=== PATIENT | female | born 1965 | race Caucasian/White ===

== ENCOUNTER 2019-11-03 16:06 | Outpatient (CLI) | payer BC, SELFPAY ==
--- NOTE | ~2019-11-03 | MM_ITS ---
EXAMINATION: MM screening [facility] BI w tarsha HISTORY: Screening mammogram TECHNIQUE: Craniocaudal and mediolateral oblique 3-D tomosynthesis images were obtained and synthetic 2-D images were generated. CAD analysis was submitted and interpreted. COMPARISON: 09/29/18, 09/25/17, 09/10/16 BREAST PARENCHYMAL COMPOSITION: The breasts are almost entirely fatty. FINDINGS: Scattered benign-appearing calcifications are present. Stable bilateral breast masses are c onsidered benign given the lack of interval change. There is no evidence of suspicious mass, calcific ation, or architectural distortion to suggest malignancy in either breast. There has been no suspicio us interval change. IMPRESSION: 1. No mammographic evidence of malignancy. 2. Recommend routine screening mammography in one year. BI-RADS Category 2: Benign finding(s). Reviewed, dictated and finalized at location A. CRAFTER
== END 2019-11-03 16:07 | disposition home or self-care (01) ==
LOC: ANHIMG 16:09
PROVIDERS: PCP Family Medicine; Visit Provider Family Medicine
DX: Z12.31 Encounter for screening mammogram for malignant neoplasm of breast (principal)
CPT/HCPCS: 77063; 77067

== ENCOUNTER 2020-02-23 14:45 | Outpatient (RCR) | payer BC, SELFPAY ==
--- NOTE | 2020-02-23 15:58 | PTOPEVAL ---
Thank you for referring Faye Lennon to [facility]. Please review, sign, date and return this plan of care DAYO. I agree with and certify that the following plan of care is medically necessary. Referring Physician Date Admitting Provider: Attending Provider: Ramana Lopes, MD Referring Provider: *PT Outpatient Evaluation Start: 02/23/20 14:56 Freq: Status: Active Protocol: Document 02/23/20 14:57 GEOFF (Rec: 02/23/20 15:27 GEOFF [email or web address]) Therapy Assessment Status Assessment Status Assessment Status Evaluation Evaluation Information Problem Diagnosis impingement syndrome of left shoulder Onset 11/19/19 Subjective Information Pt. reports that she was Query Text:As Reported By Patient/ sewing masks recently and Family noticed increased left shoulder pain. She reports that the pain has worsened and has trouble reaching behind her back. She reports that most pain is in the front of the left shoulder. Pain will wake her at night. She reports she cannot reach behind her back w/o pain. She reports that dressing is becoming more difficult. Her goal is to decrease her left shoulder pain. Diagnostic Tests X-Rays For This Problem Yes Prior Level of Function Activity Level (Last 3 Months) Hand Dominance Right Activity of Daily Living Ability Independent Indoor/Home Mobility Independent Community Mobility Independent Stairs Ability Independent Functional Cognition (Planning, Shopping Independent , Taking Medications) Cooking Yes Cleaning Yes Laundry Yes Shopping Yes Driving Yes Pain Assessment Pain Scale Pain Scale Used Numeric (1 - 10) Self Report Pain Assessment Left Shoulder(s) Reported Pain Level 8 Pain Description Stabbing Pain Frequency Chronic Pain Aggravating Factors Exercise/Activity Other Pain Aggravating Factors reaching overhead or behind the back Pain Behaviors None Pain Relief Interventions Used By None Patient Pain Score Pain Score 8: Self Report Up
--- NOTE | 2020-02-29 13:59 | PCPTNOTE ---
Faye Lennon has completed 4 out of 12 physical therapy visits. Patient's chief complaint is pain in the left shoulder with limited range of motion. She rates her pain a 7 today. She states the past couple of days the pain has been worse and she feels as if there is swelling in the biceps along with tenderness. Active range of motion has improved in regards to flexion and interal rotation. Flexion now measures 130 degrees, Internal rotation 75 degrees, and external rotation 70 degrees. Patient continues to show weakness in all ranges. If you have any further question please give us a call. Thank you. Ada Camarena, MINERAL MIXER
--- NOTE | 2020-04-25 15:06 | PTOPEVAL ---
Thank you for referring Faye Lennon to [facility]. Please review, sign, date and return this plan of care DAYO. I agree with and certify that the following plan of care is medically necessary. Referring Physician Date Admitting Provider: Attending Provider: Ramana Lopes, MD Referring Provider: *PT Outpatient Evaluation Start: 02/23/20 14:56 Freq: Status: Active Protocol: Document 04/25/20 15:01 GEOFF (Rec: 04/25/20 15:05 [email or web address] [email or web address]) Therapy Assessment Status Assessment Status Assessment Status Progress Evaluation Information Problem Subjective Information Pt. has not attended therapy Query Text:As Reported By Patient/ due to being informed to avoid Family treatment until after her MRI . She reports MRI revealed possible slap tear, doctor suggested she return to therapy. She continues to describe lateral brachial pain and stiffness at the left shoulder. She reports her goal remains to improve strength and mobility. Pain Assessment Pain Scale Pain Scale Used Numeric (1 - 10) Self Report Pain Assessment Left Shoulder(s) Reported Pain Level 5 Pain Score Pain Score 5: Self Report Upper Extremity Range of Motion General Upper Extremity Range of Motion Gross Upper Extremity Range of Motion left shoulder flexion 112 Comments degrees left shoulder IR 58 degrees left shoulder ER 60 degrees Upper Extremity Muscle Strength Testing General Upper Extremity Strength Gross Upper Extremity Strength Comments left shoulder flexion 4-/5, left shoulder abduction 4-/5, left shoulder ER 4-/5 PT Clinical Summary Clinical Summary Protocol: PTEVCODE PT Clinical Summary Pt. returns to the clinic. Deficits still remain and recommend continued treatment with same goals in order to improve left u.e. function. PT Services Indicated Yes Rehabilitation Potential Good Potential Barriers to Goal Achievements None Support Requirements For Optimal None [place] Patient/Caregiver Informed of Benefits/ Yes Risks of Rehabilitation Patient/Caregiver Participated in Plan Yes of Care Patient/Caregiver Agreed with Problem Yes List/POC/Goals Treatment Frequency and Duration 2x/week x 8 visits PT Procedures
--- NOTE | 2020-04-26 10:43 | PCPTNOTE ---
04/26/20-pt cancelled appointment as she forgot about it. -.
--- NOTE | 2020-05-11 17:00 | PCPTNOTE ---
05/11/20 Faye has received 8 out of 12 Physical Therapy appointments. Patient's chief complaint is pain and popping in the left shoulder. She rates her pain a 4. Active range of motion of left shoulder is 135 degrees of flexion and 60 degrees of external rotation. Manual muscle test shows 4/5 for flexion, 4/5 abduction, and 4/5 external rotation Patient has shown improvement in strength and range of motion over the course of her therapy. If you have any further questions please give us a call. Thank youl. Ada Camarena
--- NOTE | 2020-05-11 17:38 | PCPTNOTE ---
Faye has received 8 out of 12 Physical Therapy appointments. Patient's chief complaint is pain and popping in the left shoulder. She rates her pain a 4. Active range of motion of left shoulder is 135 degrees of flexion and 60 degrees of external rotation. Manual muscle test shows 4/5 for flexion, 4/5 abduction, and 4/5 external rotation Patient has shown improvement in strength and range of motion over the course of her therapy. If you have any further questions please give us a call. Thank you. Ada Camarena
== END 2020-05-23 23:59 | disposition home or self-care (01) ==
LOC: CHSPT 14:45
PROVIDERS: Visit Provider Orthopaedic Surgery
DX: M75.42 Impingement syndrome of left shoulder (principal); M75.02 Adhesive capsulitis of left shoulder
CPT/HCPCS: 97014; 97110; 97140; 97161; G0283

== ENCOUNTER 2020-02-26 12:27 | Outpatient (CLI) | payer BC, SELFPAY ==
[2020-02-26 12:38] LABS: Basophils Absolute Auto 0.04 K/mm3 (0.00-0.10); Basophils Percent Auto 0.5 % (0.0-1.0); Eosinophils Absolute Auto 0.06 K/mm3 (0.02-0.50); Eosinophils Percent Auto 0.7 % (1.0-6.0); Hematocrit 36.5 % (35.0-49.0); Hemoglobin 11.9 g/dL (12.0-15.0); Immature Granulocyte Absolute 0.03 K/mm3 (0.00-0.00); Immature Granulocyte Percent A 0.3 % (0.0-0.0); Lymphocytes Absolute Auto 3.07 K/mm3 (1.10-4.50); Lymphocytes Percent Auto 35.1 % (18.0-42.0); Mean Corpuscular HGB Conc 32.6 g/dL (32.0-36.0); Mean Corpuscular Hemoglobin 28.7 pg (27.0-31.0); Mean Corpuscular Volume 88.2 fL (78.0-102.0); Mean Platelet Volume 8.9 fl (9.2-11.8); Monocytes Absolute Auto 0.71 K/mm3 (0.10-0.90); Monocytes Percent Auto 8.1 % (2.0-11.0); Neutrophils Absolute Auto 4.8 K/mm3 (1.7-7.2); Neutrophils Percent Auto 55.3 % (50.0-70.0); Platelet Count Result 306 K/mm3 (150-420); Red Blood Count 4.14 M/mm3 (4.20-5.40); Red Cell Distribution Width 17.5 % (11.6-14.4); White Blood Count 8.8 K/mm3 (4.8-10.8)
[2020-02-26 12:48] LABS: Hemoglobin A1C 6.1 % (<5.7)
[2020-02-26 14:03] LABS: Cholesterol 188 mg/dL (0-200); HDL Direct 65 mg/dL (40-60); Iron 60 ug/dL (50-170); LDL Cholesterol Calculated 95 mg/dL (<130); Percent Iron Saturation 13 % (12-57); Thyroid Stimulating Hormone 1.45 uIU/mL (0.36-3.74); Triglycerides 139 mg/dL (0-150)
== END 2020-02-26 12:28 | disposition home or self-care (01) ==
LOC: CHSLAB 12:29
PROVIDERS: PCP Family Medicine; Visit Provider Family Medicine
DX: D50.9 Iron deficiency anemia, unspecified (principal); I10 Essential (primary) hypertension; E78.2 Mixed hyperlipidemia; E03.9 Hypothyroidism, unspecified; R73.01 Impaired fasting glucose
CPT/HCPCS: 36415; 80061; 83036; 83540; 83550; 84443; 85025

== ENCOUNTER 2020-03-01 12:50 | Outpatient (CLI) | payer BC, SELFPAY ==
[2020-03-01 13:43] LABS: Blood Urea Nitrogen 13 mg/dL (7-18); Calcium 9.6 mg/dL (8.5-10.1); Carbon Dioxide 32 mmol/L (21-32); Chloride 100 mmol/L (98-108); Estimated Glomerular Filt Rate > 60; Glucose 84 mg/dL (70-99)
[2020-03-01 13:48] LABS: Anion Gap 13.3 mmol/L (7-16); Osmolality Calculated 289 mOsm/kg (285-295); Potassium 5.3 mmol/L (3.5-5.1); Sodium 140 mmol/L (136-145)
== END 2020-03-01 12:51 | disposition home or self-care (01) ==
LOC: CHSLAB 12:51
PROVIDERS: PCP Family Medicine; Visit Provider Family Medicine
DX: R73.01 Impaired fasting glucose (principal)
CPT/HCPCS: 36415; 80048

== ENCOUNTER 2020-03-07 10:19 | Outpatient (CLI) | payer BC, SELFPAY ==
[2020-03-07 11:18] LABS: Anion Gap 11.3 mmol/L (7-16); Blood Urea Nitrogen 14 mg/dL (7-18); Calcium 9.7 mg/dL (8.5-10.1); Carbon Dioxide 31 mmol/L (21-32); Chloride 102 mmol/L (98-108); Estimated Glomerular Filt Rate > 60; Glucose 87 mg/dL (70-99); Osmolality Calculated 287 mOsm/kg (285-295); Potassium 5.3 mmol/L (3.5-5.1); Sodium 139 mmol/L (136-145)
== END 2020-03-07 10:20 | disposition home or self-care (01) ==
PROVIDERS: PCP Family Medicine; Visit Provider Family Medicine
DX: E87.5 Hyperkalemia (principal)
CPT/HCPCS: 36415; 80048

== ENCOUNTER 2020-03-23 08:47 | Outpatient (CLI) | payer BC, SELFPAY ==
[2020-03-23 10:19] LABS: Anion Gap 14.8 mmol/L (7-16); Blood Urea Nitrogen 13 mg/dL (7-18); Calcium 9.4 mg/dL (8.5-10.1); Carbon Dioxide 29 mmol/L (21-32); Chloride 104 mmol/L (98-108); Estimated Glomerular Filt Rate > 60; Glucose 86 mg/dL (70-99); Osmolality Calculated 295 mOsm/kg (285-295); Potassium 4.8 mmol/L (3.5-5.1); Sodium 143 mmol/L (136-145)
== END 2020-03-23 08:48 | disposition home or self-care (01) ==
PROVIDERS: PCP Family Medicine; Visit Provider Family Medicine
DX: E87.5 Hyperkalemia (principal)
CPT/HCPCS: 36415; 80048

== ENCOUNTER 2020-08-03 09:59 | Outpatient (NON) | payer BC, SELFPAY ==
[2020-08-04 13:09] LABS: SARS-CoV-2 RNA PCR Positive
== END 2020-08-03 10:00 ==
LOC: ANHCOVIDDT 10:01
PROVIDERS: PCP Family Medicine; Visit Provider Family Medicine
DX: J02.9 Acute pharyngitis, unspecified (principal); U07.1 COVID-19
CPT/HCPCS: 87635; C9803; U0003

== ENCOUNTER 2020-11-08 17:28 | Outpatient (CLI) | payer BC, SELFPAY ==
--- NOTE | ~2020-11-08 | MM_ITS ---
EXAMINATION: MM screening isrrael BI w tarsha HISTORY: Screening mammogram TECHNIQUE: Craniocaudal and mediolateral oblique 3-D tomosynthesis images were obtained and synthetic 2-D images were generated. CAD analysis was submitted and interpreted. COMPARISON: November 03, 2019, 09/29/2018, 09/25/2017 bilateral digital screening mammogram examinatio ns BREAST PARENCHYMAL COMPOSITION: There are scattered areas of fibroglandular density. FINDINGS: Bilateral benign calcified microhematomas. There is no evidence of suspicious mass, calcifi cation, or architectural distortion to suggest malignancy in either breast. There has been no suspici ous interval change. IMPRESSION: 1. No mammographic evidence of malignancy. 2. Recommend routine screening mammography in one year. BI-RADS Category 2: Benign finding(s). Reviewed, dictated and finalized at location A. L RAIL CUTTER
== END 2020-11-08 17:29 | disposition home or self-care (01) ==
LOC: ANHIMG 17:30
PROVIDERS: PCP Family Medicine; Visit Provider Family Medicine
DX: Z12.31 Encounter for screening mammogram for malignant neoplasm of breast (principal)
CPT/HCPCS: 77063; 77067

== ENCOUNTER 2020-12-13 07:26 | Outpatient (CLI) | payer BC, SELFPAY ==
[2020-12-13 07:39] LABS: Basophils Absolute Auto 0.03 K/mm3 (0.00-0.10); Basophils Percent Auto 0.4 % (0.0-1.0); Eosinophils Absolute Auto 0.08 K/mm3 (0.02-0.50); Hematocrit 29.5 % (35.0-49.0); Hemoglobin 8.8 g/dL (12.0-15.0); Immature Granulocyte Absolute 0.03 K/mm3 (0.00-0.00); Immature Granulocyte Percent A 0.4 % (0.0-0.0); Lymphocytes Absolute Auto 1.85 K/mm3 (1.10-4.50); Lymphocytes Percent Auto 22.9 % (18.0-42.0); Mean Corpuscular HGB Conc 29.8 g/dL (32.0-36.0); Mean Corpuscular Hemoglobin 24.9 pg (27.0-31.0); Mean Corpuscular Volume 83.3 fL (78.0-102.0); Mean Platelet Volume 8.7 fl (9.2-11.8); Monocytes Absolute Auto 0.76 K/mm3 (0.10-0.90); Monocytes Percent Auto 9.4 % (2.0-11.0); Neutrophils Absolute Auto 5.3 K/mm3 (1.7-7.2); Neutrophils Percent Auto 65.9 % (50.0-70.0); Platelet Count Result 305 K/mm3 (150-420); Red Blood Count 3.54 M/mm3 (4.20-5.40); Red Cell Distribution Width 17.8 % (11.6-14.4); White Blood Count 8.1 K/mm3 (4.8-10.8)
[2020-12-13 08:20] LABS: Alanine Aminotransferase 22 U/L (14-59); Albumin Level 3.6 g/dL (3.4-5.0); Alkaline Phosphatase 71 U/L (46-116); Anion Gap 9 mmol/L (8-16); Aspartate Amino Transferase 15 U/L (15-37); Bilirubin,Total 0.3 mg/dL (0.00-1.00); Blood Urea Nitrogen 11 mg/dL (7-18); CRP < 0.5 mg/dL (0.0-0.9); Calcium 9.1 mg/dL (8.5-10.1); Carbon Dioxide 29 mmol/L (21-32); Chloride 102 mmol/L (98-108); Estimated Glomerular Filt Rate > 60; Glucose 109 mg/dL (70-99); Osmolality Calculated 290 mOsm/kg (285-295); Potassium 4.9 mmol/L (3.5-5.1); Sodium 140 mmol/L (136-145); Total Protein 7.1 g/dL (6.4-8.2)
== END 2020-12-13 07:27 | disposition home or self-care (01) ==
LOC: CHSLAB 07:29
PROVIDERS: PCP Family Medicine
DX: M06.09 Rheumatoid arthritis without rheumatoid factor, multiple sites (principal); D64.89 Other specified anemias; F11.90 Opioid use, unspecified, uncomplicated; Z79.899 Other long term (current) drug therapy
CPT/HCPCS: 36415; 80053; 85025; 86140

== ENCOUNTER 2020-12-20 07:34 | Outpatient (CLI) | payer BC, SELFPAY ==
[2020-12-20 09:15] LABS: Iron 28 ug/dL (50-170)
[2020-12-26 22:59] LABS: Hematocrit 30.1 % (35.0-45.0); MCH 24.7 pg (27.0-33.0); MCV 82.7 FL (80.0-100.0); RDW 19.6 % (11.0-15.0); Red Blood Cell Count 3.64 Mill/uL (3.80-5.10)
== END 2020-12-20 07:35 | disposition home or self-care (01) ==
LOC: CHSLAB 07:36
PROVIDERS: PCP Family Medicine; Visit Provider Internal Medicine
DX: D64.89 Other specified anemias (principal); M16.52 Unilateral post-traumatic osteoarthritis, left hip; M06.09 Rheumatoid arthritis without rheumatoid factor, multiple sites
CPT/HCPCS: 36415; 83021; 83540

== ENCOUNTER 2021-01-23 07:38 | Outpatient (CLI) | payer BC, SELFPAY ==
[2021-01-23 07:49] LABS: Basophils Absolute Auto 0.04 K/mm3 (0.00-0.10); Basophils Percent Auto 0.4 % (0.0-1.0); Eosinophils Absolute Auto 0.12 K/mm3 (0.02-0.50); Eosinophils Percent Auto 1.1 % (1.0-6.0); Hematocrit 31.4 % (35.0-49.0); Hemoglobin 9.4 g/dL (12.0-15.0); Immature Granulocyte Absolute 0.04 K/mm3 (0.00-0.00); Immature Granulocyte Percent A 0.4 % (0.0-0.0); Lymphocytes Absolute Auto 2.47 K/mm3 (1.10-4.50); Lymphocytes Percent Auto 23.5 % (18.0-42.0); Mean Corpuscular HGB Conc 29.9 g/dL (32.0-36.0); Mean Corpuscular Hemoglobin 24.6 pg (27.0-31.0); Mean Corpuscular Volume 82.2 fL (78.0-102.0); Monocytes Absolute Auto 0.84 K/mm3 (0.10-0.90); Neutrophils Percent Auto 66.6 % (50.0-70.0); Platelet Count Result 313 K/mm3 (150-420); Red Blood Count 3.82 M/mm3 (4.20-5.40); Red Cell Distribution Width 19.4 % (11.6-14.4); White Blood Count 10.5 K/mm3 (4.8-10.8)
== END 2021-01-23 07:39 | disposition home or self-care (01) ==
LOC: CHSLAB 07:41
PROVIDERS: PCP Family Medicine; Visit Provider Internal Medicine
DX: D64.89 Other specified anemias (principal); M16.52 Unilateral post-traumatic osteoarthritis, left hip; M06.09 Rheumatoid arthritis without rheumatoid factor, multiple sites
CPT/HCPCS: 36415; 85025

== ENCOUNTER 2021-03-30 00:43 | Day surgery (SDC) | payer BC, SELFPAY ==
[2021-03-30 06:38] VITALS: BP 118/73; PULSE 89; RESP 16; TEMP 35.7; O2SAT 100
[2021-03-30 06:38] LABS: Glucose Point of Care 99 mg/dl (65-105)
[2021-03-30] MEDS: LACTATED RINGERS 1,000 ML 150 ML IV CONT (06:42)
--- NOTE | 2021-03-30 07:55 | WPDANESEPPF ---
Anes - Initial Pre Proc Eval Procedure: Operation Date: 03/30/21 08:00 Proposed Procedures p Esophagogastroduodenoscopy & Colonoscopy - Tim Luna DO Date/Time: 03/30/21 07:55 Surgeon: Tim Luna DO Pre Op Diagnosis: lron def anemia, hx of colon polyps Patient Data Age: 55 Gender: F Height: 1.55 m Weight: 80.2 kg Last Vital Signs Temp 96.3 F L 03/30/21 06:38 Pulse 89 03/30/21 06:38 Resp 16 03/30/21 06:38 BP 118/73 03/30/21 06:38 Pulse Ox 100 03/30/21 06:38 Allergies Allergy/AdvReac Type Severity Reaction Status Date / Time hydroxychloroquine Allergy Unknown Other Verified 03/30/21 06:36 quinapril Allergy Unknown LIP Verified 03/30/21 06:36 SWELLING Home Medications Medication Instructions Recorded Confirmed Type carvedilol 25 mg tablet 25 mg PO BID 08/31/19 03/30/21 History folic acid 1 mg tablet 1 mg PO DAILY 08/31/19 03/30/21 History gabapentin 300 mg capsule 600 mg PO DAILY cap 08/31/19 03/30/21 History losartan 100 mg tablet 100 mg PO DAILY 08/31/19 03/30/21 History methotrexate (PF) 25 mg/0.4 mL 25 mg SUB-Q WEEKLY 08/31/19 03/30/21 History subcutaneous auto-injector tramadol 50 mg tablet 100 mg PO DAILY 08/31/19 03/30/21 History levothyroxine 75 mcg tablet 75 mcg PO DAILY #90 tablet 01/25/21 03/30/21 Rx venlafaxine 150 mg 150 mg PO DAILY #90 cap 02/02/21 03/30/21 Rx capsule,extended release 24 hr abatacept [Orencia ClickJect] 125 mg SUBCUT WEEKLY 03/23/21 03/30/21 History ascorbic acid (vitamin C) 500 mg PO DAILY 03/23/21 03/30/21 History esomeprazole magnesium 40 mg PO DAILY 03/23/21 03/30/21 History ferrous sulfate 325 mg PO DAILY 03/23/21 03/30/21 History metformin 500 mg PO BID 03/23/21 03/30/21 History Laboratory Tests 03/30/21 06:34 POC Capillary Glucose 99 mg/dl mg/dl (65-105) Patient hx anesthesia problems: none Family hx anesthesia problems: none PMFSH Past Medical History Medical History (Updated 08/04/20 @ 13:30 by Ken Best MD) Acne vulgaris Actinic keratosis Acute non-recurrent maxillary sinusitis Breast cancer screening by mammogram COVID-19 Essential (primary) hypertension Exposure to COVID-19 virus H/O urinary frequency Hyperkalemia Pharyngitis UTI (urinary tract infection) Family History Family History (Updated 12/25/18 @ 13:00 by DOCTOR UNKNOWN) Grandparent Family history of cardiovascular disease, Onset Age: 44 Carcinoma of colon, Onset Age: 84 Family history of pancreatic cancer, Onset Age: 75 Father Acute myocardial infarction, Onset Age: 48 Mother Family history of Alzheimer's disease, Onset Age: 72 Social History Social History Smoking status: Never smoker Alcohol intake: current Alcohol use details: Monthly Living arrangements: with family Spiritual care concerns: No Anes - Eval Final PreProcedure Day of Procedure 03/30/21 07:55 Patient weight: obese Heart: regular rate and rhythm Lungs: clear to auscultation Airway: Mallampati scale class II Neurological: alert and oriented Last oral intake: >/= 8 hours ASA classification: III Emergent: no Anesthetic plan: proceed Anesthesia type and monitoring: general GIVS and standard monitoring Informed Consent: The patient's anesthetic plan and its attendant risks and benefits were discussed with the patient/family/POA. Questions were solicited and answers provided to the satisfaction of the patient/family/POA.
--- NOTE | 2021-03-30 08:32 | PM.IMHP ---
H&P: HPI History of Present Illness Date/Time: 03/30/21 08:32 Chief Complaint: anemia Narrative: this is a 55-year-old woman who presents with a recent finding of anemia. She denies in a noticeable blood in her stool. She has had a colonoscopy within the past few years which she thinks her showed polyps. She does have some acid reflux for which she takes Nexium, but denies any history peptic ulcer disease. Review of Systems Review of Systems: All systems reviewed & are unremarkable except as noted in HPI and below Constitutional: Constitutional: Denies chills, Denies fever(s), Denies headache(s) and Denies weight loss Eyes: Eyes: Denies change in vision ENT: Denies dizziness, Denies headache(s), Denies neck mass and Denies throat swelling Cardiovascular: Cardiovascular: Denies chest pain, Denies lightheadedness and Denies dyspnea Respiratory: Respiratory: Denies cough, Denies dyspnea and Denies wheezing Gastrointestinal: Gastrointestinal: Denies abdominal pain, Denies change in bowel habits, Denies nausea and Denies vomiting Genitourinary: Genitourinary: Denies hematuria and Denies dysuria Musculoskeletal: Musculoskeletal: Reports as per HPI Integumentary/Breasts: Skin/Breast: Reports as per HPI Neurologic: Denies dizziness and Denies headache(s) Allergic/Immunologic: Allergic/Immunologic: Denies throat swelling and Denies wheezing PMF Past Medical History Medical History (Updated 03/30/21 @ 08:33 by Tim Luna DO) Acne vulgaris Actinic keratosis Acute non-recurrent maxillary sinusitis Breast cancer screening by mammogram COVID-19 Essential (primary) hypertension Exposure to COVID-19 virus H/O urinary frequency Hyperkalemia Pharyngitis UTI (urinary tract infection) Family History Family History (Updated 12/25/18 @ 13:00 by DOCTOR UNKNOWN) Grandparent Family history of cardiovascular disease, Onset Age: 44 Carcinoma of colon, Onset Age: 84 Family history of pancreatic cancer, Onset Age: 75 Father Acute myocardial infarction, Onset Age: 48 Mother Family history of Alzheimer's disease, Onset Age: 72 Social History Social History Smoking status: Never smoker Alcohol intake: current Alcohol use details: Monthly Living arrangements: with family Spiritual care concerns: No Meds Home Medications and Allergies Home Medications Medication Instructions Recorded Confirmed Type carvedilol 25 mg tablet 25 mg PO BID 08/31/19 03/30/21 History folic acid 1 mg tablet 1 mg PO DAILY 08/31/19 03/30/21 History gabapentin 300 mg capsule 600 mg PO DAILY cap 08/31/19 03/30/21 History losartan 100 mg tablet 100 mg PO DAILY 08/31/19 03/30/21 History methotrexate (PF) 25 mg/0.4 mL 25 mg SUB-Q WEEKLY 08/31/19 03/30/21 History subcutaneous auto-injector tramadol 50 mg tablet 100 mg PO DAILY 08/31/19 03/30/21 History levothyroxine 75 mcg tablet 75 mcg PO DAILY #90 tablet 01/25/21 03/30/21 Rx venlafaxine 150 mg 150 mg PO DAILY #90 cap 02/02/21 03/30/21 Rx capsule,extended release 24 hr abatacept [Orencia ClickJect] 125 mg SUBCUT WEEKLY 03/23/21 03/30/21 History ascorbic acid (vitamin C) 500 mg PO DAILY 03/23/21 03/30/21 History esomeprazole magnesium 40 mg PO DAILY 03/23/21 03/30/21 History ferrous sulfate 325 mg PO DAILY 03/23/21 03/30/21 History metformin 500 mg PO BID 03/23/21 03/30/21 History Allergies Allergy/AdvReac Type Severity Reaction Status Date / Time hydroxychloroquine Allergy Unknown Other Verified 03/30/21 06:36 quinapril Allergy Unknown LIP Verified 03/30/21 06:36 SWELLING Vital Signs Vital Signs - 24 hr 03/30/21 06:38 Temperature 35.7 C L Pulse Rate 89 Respiratory Rate 16 Blood Pressure 118/73 Pulse Oximetry 100 Exam Const: General: no acute distress and alert Orientation/consciousness: patient oriented x3 HENMT: Head: normocephalic and atraumatic Ears: hearing grossly normal bilaterally General nose
[2021-03-30 09:04] VITALS: BP 82/55; PULSE 75; RESP 15; O2SAT 100
[2021-03-30 09:14] VITALS: BP 96/65; PULSE 76; RESP 16; O2SAT 100
[2021-03-30 09:24] VITALS: BP 101/60; PULSE 70; RESP 27; O2SAT 99
== END 2021-03-30 09:38 | disposition home or self-care (01) ==
PROVIDERS: PCP Family Medicine; Visit Provider Surgery
PROC: 0DJ08ZZ Inspection of Upper Intestinal Tract, Via Natural or Artificial Opening Endoscopic (ICD-10-PCS; CPT 43235; principal; 2021-03-30 08:00)
DX: D50.9 Iron deficiency anemia, unspecified (principal); K29.60 Other gastritis without bleeding; K31.7 Polyp of stomach and duodenum; K21.9 Gastro-esophageal reflux disease without esophagitis; I10 Essential (primary) hypertension; Z86.16 Personal history of COVID-19; E66.9 Obesity, unspecified; Z68.33 Body mass index [BMI] 33.0-33.9, adult; Z79.84 Long term (current) use of oral hypoglycemic drugs; Z86.010 Personal history of colon polyps
CPT/HCPCS: 45378; 43239; 82948; 87081; 88305; J2704; J7120

== ENCOUNTER → 2021-05-15 09:31 | Outpatient (CLI) | payer BC, SELFPAY ==
--- NOTE | ~2021-05-15 | XR_ITS ---
XR lumbar spine min 4V DATE: 05/15/2021 09:56 INDICATION: Low back pain TECHNIQUE: AP, lateral, bilateral oblique views and coned lateral lumbosacral COMPARISON: None FINDINGS: There is diffuse osteopenia. There is mild degenerative disc disease at L2-3. There is moderately severe degenerative disc disease at L5-S1. No fracture or bone destruction, spondylolysis or spondylolisthesis. The sacroiliac joints are intact. Status post cholecystectomy. IMPRESSION: Degenerative disc disease, most pronounced at L5-S1 Reviewed, dictated and finalized at location A.
== END ==
PROVIDERS: PCP Family Medicine; Visit Provider Family Medicine
DX: M54.5 Low back pain (principal); M51.37 Other intervertebral disc degeneration, lumbosacral region
CPT/HCPCS: 72110

== ENCOUNTER 2021-05-16 07:52 | Outpatient (CLI) | payer BC, SELFPAY ==
[2021-05-16 08:10] LABS: Basophils Absolute Auto 0.03 K/mm3 (0.00-0.10); Basophils Percent Auto 0.4 % (0.0-1.0); Eosinophils Absolute Auto 0.13 K/mm3 (0.02-0.50); Eosinophils Percent Auto 1.5 % (1.0-6.0); Hematocrit 36.1 % (35.0-49.0); Hemoglobin 11.5 g/dL (12.0-15.0); Immature Granulocyte Absolute 0.03 K/mm3 (0.00-0.00); Immature Granulocyte Percent A 0.4 % (0.0-0.0); Lymphocytes Absolute Auto 1.75 K/mm3 (1.10-4.50); Lymphocytes Percent Auto 20.5 % (18.0-42.0); Mean Corpuscular HGB Conc 31.9 g/dL (32.0-36.0); Mean Corpuscular Hemoglobin 29.4 pg (27.0-31.0); Mean Corpuscular Volume 92.3 fL (78.0-102.0); Monocytes Absolute Auto 0.75 K/mm3 (0.10-0.90); Monocytes Percent Auto 8.8 % (2.0-11.0); Neutrophils Absolute Auto 5.8 K/mm3 (1.7-7.2); Neutrophils Percent Auto 68.4 % (50.0-70.0); Platelet Count Result 242 K/mm3 (150-420); Red Blood Count 3.91 M/mm3 (4.20-5.40); Red Cell Distribution Width 17.3 % (11.6-14.4); White Blood Count 8.5 K/mm3 (4.8-10.8)
[2021-05-16 08:11] LABS: Add Urine Microscopic? YES; Appearance Urine Sl Cloudy (Clear); Bilirubin Urine Negative (Negative); Blood Urine Negative (Negative); Color Urine Light Yellow (Yellow); Glucose Urine UA Negative (Negative); Ketones Urine Negative (Negative); Leukocyte Esterase Ur Trace (Negative); Nitrate Urine Negative (Negative); Protein Urine Negative (Negative); Specific Grav Ur >= 1.030 (1.010-1.020); Urobilinogen Urine 0.2 mg/dL (0.2-1.0)
[2021-05-16 08:19] LABS: Bacteria Urine 4+ /hpf; RBC Urine 0-2 /hpf (0-2); Squamous Epithelial Cell Urine Moderate /hpf (Few)
[2021-05-16 08:20] LABS: Hemoglobin A1C 5.6 % (<5.7)
[2021-05-16 09:14] LABS: Alanine Aminotransferase 18 U/L (14-59); Albumin Level 3.4 g/dL (3.4-5.0); Alkaline Phosphatase 72 U/L (46-116); Anion Gap 10 mmol/L (8-16); Aspartate Amino Transferase 12 U/L (15-37); Bilirubin,Total 0.2 mg/dL (0.00-1.00); Blood Urea Nitrogen 14 mg/dL (7-18); Calcium 9.2 mg/dL (8.5-10.1); Carbon Dioxide 27 mmol/L (21-32); Chloride 107 mmol/L (98-108); Cholesterol 183 mg/dL (0-200); Estimated Glomerular Filt Rate > 60; Ferritin 36 ng/mL (8-252); Free T4 Free Thyroxine 1.06 ng/dL (0.76-1.46); Glucose 93 mg/dL (70-99); HDL Direct 52 mg/dL (40-60); Iron 63 ug/dL (50-170); LDL Cholesterol Calculated 76 mg/dL (<130); Osmolality Calculated 298 mOsm/kg (285-295); Percent Iron Saturation 20 % (12-57); Potassium 4.4 mmol/L (3.5-5.1); Sodium 144 mmol/L (136-145); Thyroid Stimulating Hormone 0.89 uIU/mL (0.36-3.74); Total Protein 7.1 g/dL (6.4-8.2); Triglycerides 276 mg/dL (0-150); Vitamin B12 901 pg/mL (193-986)
[2021-05-16 09:16] LABS: Folic Acid > 20.0 ng/mL (8.6->20)
== END 2021-05-16 07:53 | disposition home or self-care (01) ==
LOC: CHSLAB 07:56
PROVIDERS: PCP Family Medicine; Visit Provider Family Medicine
DX: E78.2 Mixed hyperlipidemia (principal); R73.01 Impaired fasting glucose; E03.9 Hypothyroidism, unspecified; D50.9 Iron deficiency anemia, unspecified; D51.9 Vitamin B12 deficiency anemia, unspecified
CPT/HCPCS: 36415; 80053; 80061; 81001; 82607; 82728; 82746; 83036; 83540; 83550; 84439; 84443; 85025

== ENCOUNTER → 2021-06-14 09:45 | Outpatient (CLI) | payer OTHER, BC, SELFPAY ==
--- NOTE | ~2021-06-14 | MR_ITS ---
EXAMINATION: MRI SACRUM W/O CONTRAST DATE: 06/14/2021 14:42 INDICATION: Sacral contusion post fall TECHNIQUE: Magnetic resonance imaging (MRI) of the sacrum and coccyx was performed without intravenou s contrast. Sequences included sagittal PD-weighted FS FSE; oblique axial T1-weighted FSE and T2-kuldip ghted FS FSE; oblique coronal T1-weighted FSE and T2-weighted FS FSE. COMPARISON: Lumbar spine radiographs dated 05/15/2021 FINDINGS: 5 mm retrolisthesis L5 on S1. T2 hyperintense fibrovascular degenerative endplate changes at both mercedes es of the moderate to severely narrowed L5-S1 disc space. There is an annular fissure and associated disc extrusion at this level which does not significantly narrow the central canal but which along wi th mild to moderate lower lumbar facet osteoarthritis does contribute to what is likely moderate bila teral neural foraminal stenosis at this level. Assessment is somewhat limited by motion artifact on b oth the initial and repeat sagittal sequences. Sacrum and visualized portion of the ileum are otherwi se unremarkable with otherwise normal marrow signal. No fracture or pathologic marrow replacing proce ss. Bilateral sacroiliac joint spaces are normal with no erosions, effusions or synovitis to suggest inflammatory sacroiliitis. Visualized portions of the bilateral hips are also normal with no joint ef fusion. The uterus is not identified and has likely been surgically resected. IMPRESSION: 1. 4 mm retrolisthesis L5 on S1 with moderate to severe spondylosis at this level. No other acute oss eous abnormality. Reviewed, dictated and finalized at location A. IMPRESSION: 1. 4 mm retrolisthesis L5 on S1 with moderate to severe spondylosis at this lev el. No other acute osseous abnormality.
== END ==
PROVIDERS: PCP Family Medicine; Visit Provider Physical Medicine & Rehabilitation
DX: S30.0XXA Contusion of lower back and pelvis, initial encounter (principal); M47.817 Spondylosis without myelopathy or radiculopathy, lumbosacral region
CPT/HCPCS: 72195

== ENCOUNTER 2021-07-04 16:53 | Outpatient (RCR) | payer BC, SELFPAY ==
--- NOTE | 2021-07-04 17:52 | PTOPEVAL ---
Thank you for referring Faye Lennon to [facility].? The patient is scheduled to be seen for therapy? ____x/week for ___ weeks. Please review, sign, date and return this plan of care DAYO. I agree with and certify that the following plan of care is medically necessary. Referring Physician Date Admitting Provider: Attending Provider: Oscar Nevarez, MD Referring Provider: *PT Outpatient Evaluation Start: 07/04/21 16:55 Freq: Status: Active Protocol: Document 07/04/21 16:56 ACR (Rec: 07/04/21 17:52 ACR [id number]) Therapy Assessment Status Assessment Status Assessment Status Evaluation Outpatient Past Medical History Neurological History Hx Neurological Disorders No Significant History Cardiovascular History Hx Hypercholesterolemia Yes Hx Hypertension Yes Respiratory History Hx Respiratory Disorders No Significant History Gastrointestinal History Hx Appendectomy Yes Hx Cholecystectomy Yes Hx Gastroesophageal Reflux Disease Yes Hx Irritable Bowel Yes Hx Polyps Yes Genitourinary History Hx Genitourinary Disorders No Significant History Musculoskeletal History Hx Rheumatoid Arthritis Yes Hematological History Hx Anemia Yes Endocrine History Hx Diabetes Yes Hx Hypothyroidism Yes HEENT History Hx Tonsillectomy Yes Integumentary History Hx Shingles Yes Reproductive History Hx Section Yes: X2 Hx Other Reproductive Disorders Yes: laparoscopy X4 Psychosocial History Hx Psychiatric Disorders No Significant History Pain History Has Past Pain Affected Your Daily Life Yes Anesthesia History Hx Other Anesthesia Reactions Yes: slow to wake up Evaluation Information Problem Diagnosis contusion of sacrum Onset 05/08/21 Subjective Information Patient states that she slid Query Text:As Reported By Patient/ on water and fell right on her Family tailbone and it has been painful ever since. She states that she went to the MD and got an x-ray which was negative, then went to the chiropractor which made things worse, then she got an MRI which showed some bulging discs. She states that she has not been able to do anything but go to work and home because of the pain. She states that bending over to
--- NOTE | 2021-08-08 08:16 | PTOPEVAL ---
Thank you for referring Faye Lennon to [facility].? The patient is scheduled to be seen for therapy? ____x/week for ___ weeks. Please review, sign, date and return this plan of care DAYO. I agree with and certify that the following plan of care is medically necessary. Referring Physician Date Admitting Provider: Attending Provider: Oscar Nevarez, Referring Provider: *PT Outpatient Evaluation Start: 07/04/21 16:55 Freq: Status: Active Protocol: Document 08/02/21 17:00 [facility] (Rec: 08/08/21 08:13 [facility] [id number]) Therapy Assessment Status Assessment Status Assessment Status Progress Outpatient Past Medical History Neurological History Hx Neurological Disorders No Significant History Cardiovascular History Hx Hypercholesterolemia Yes Hx Hypertension Yes Respiratory History Hx Respiratory Disorders No Significant History Gastrointestinal History Hx Appendectomy Yes Hx Cholecystectomy Yes Hx Gastroesophageal Reflux Disease Yes Hx Irritable Bowel Yes Hx Polyps Yes Genitourinary History Hx Genitourinary Disorders No Significant History Musculoskeletal History Hx Rheumatoid Arthritis Yes Hematological History Hx Anemia Yes Endocrine History Hx Diabetes Yes Hx Hypothyroidism Yes HEENT History Hx Tonsillectomy Yes Integumentary History Hx Shingles Yes Reproductive History Hx Section Yes: X2 Hx Other Reproductive Disorders Yes: laparoscopy X4 Psychosocial History Hx Psychiatric Disorders No Significant History Pain History Has Past Pain Affected Your Daily Life Yes Anesthesia History Hx Other Anesthesia Reactions Yes: slow to wake up Evaluation Information Problem Diagnosis contusion of sacrum Onset 05/08/21 Subjective Information patient continues to report Query Text:As Reported By Patient/ pain in the low back with Family sitting and bending. she reports sitting is the worst. she reports she has an appointment with a neurologist tomorrow. she reports she is hopeful to get some answers about her back pain. she reports pain is still intense and worsens with work. Pain Assessment Timing of Pain Assessment Timing of Pain Assessment Assessment Pain Scale Pain Scale Used Numeric (1 - 10) Self Report Pain Assessment Sacrum Reported Pain Level 7 Greatest Pain Intensity
== END 2021-08-02 23:59 | disposition home or self-care (01) ==
LOC: CHSPT 16:53
PROVIDERS: Visit Provider Physical Medicine & Rehabilitation
DX: S30.0XXA Contusion of lower back and pelvis, initial encounter (principal)
CPT/HCPCS: 97012; 97014; 97110; 97140; 97161; G0283

== ENCOUNTER 2021-09-19 12:41 | Outpatient (CLI) | payer BC, SELFPAY ==
--- NOTE | 2021-09-19 12:46 | ECHO_ITS ---
Patient Info Name: Faye Lennon Age: 55 years : 1965 Gender: Female Ht: 61 in Wt: 175 lbs BSA: 1.88 m2 HR: 79 bpm BP: 106 / 75 mmHg Technical Quality: Good Exam Date: 09/19/2021 1:06 PM Exam Location: [facility] Patient Status: Outpatient Admit Date: 09/19/2021 Staff Ordering Physician: Ander Triplett DO Adjunct Lecturer: Murtaza Hamilton RDCS, RT Attending Provider: Ander Triplett DO Referring Physician: Uziel ANDERSON; Exam Type: CA echo doppler color flow Study Info Indications I35.1 - Nonrheumatic aortic (valve) insufficiency Complete two-dimensional, color flow and Doppler transthoracic echocardiogram is performed. Strain analysis performed. Summary 1. Complete two-dimensional, color flow and Doppler transthoracic echocardiogram is performed. 2. Left ventricular chamber dimension is normal. 3. Ventricular septum is moderate sigmoid shaped. No LVOT obstruction. 4. Left ventricular systolic function is normal, estimated at 60-65%. 5. The left ventricular diastolic function is grade I diastolic dysfunction. 6. E/e' 8 is minimally elevated. 7. Global longitudinal strain is normal at -19.2%. 8. There is mild aortic valve sclerosis. 9. There is mild aortic valve regurgitation. 10. There is mild mitral valve regurgitation. 11. There is trace tricuspid valve regurgitation. 12. No pulmonary hypertension, estimated pulmonary arterial systolic pressure is 26 mmHg. 13. There is trace pulmonic regurgitation. Left Ventricle E/e' 8 is minimally elevated. Global longitudinal strain is normal at -19.2%. Ventricular septum is moderate sigmoid shaped. No LVOT obstruction. Left ventricular chamber dimension is normal. Left ventricular systolic function is normal, estimated at 60-65%. The left ventricular diastolic function is grade I diastolic dysfunction. Right Ventricle Right ventricular systolic function is normal and with normal TAPSE 2.0 cm.. Right ventricular chamber dimension is normal. Left Atria Left atrial chamber dimension is normal. Right Atria Right atrial chamber dimension is normal. Aortic Valve The aortic valve is trileaflet. There is mild aortic valve sclerosis. There is no aortic valve stenosis. There is mild aortic valve regurgitation. Pulmonic Valve There is trace pulmonic regurgitation. Mitral Valve There is no mitral valve stenosis. There is mild mitral valve regurgitation. Tricuspid Valve There is trace tricuspid valve regurgitation. No pulmonary hypertension, estimated pulmonary arterial systolic pressure is 26 mmHg. Pericardium/Pleural There is no pericardial effusion. Inferior Vena Cava Normal inferior vena cava with >50% collapse upon inspiration consistent with normal right atrial pressure, 5 mmHg. Aorta The aortic root size at the sinus of Valsalva is normal. Left Ventricular Outflow Tract Name Value Normal LVOT 2D LVOT Diameter 2.0 cm LVOT Doppler LVOT Peak Gradient 6 mmHg LVOT Mean Gradient 3 mmHg LVOT VTI 25 cm LVOT VTI/AV VTI Ratio
== END 2021-09-19 12:42 | disposition home or self-care (01) ==
PROVIDERS: PCP Family Medicine; Visit Provider Internal Medicine Cardiovascular Disease
DX: I35.1 Nonrheumatic aortic (valve) insufficiency (principal); I36.1 Nonrheumatic tricuspid (valve) insufficiency
CPT/HCPCS: 93306

== ENCOUNTER 2021-11-10 15:49 | Outpatient (CLI) | payer BC, SELFPAY ==
--- NOTE | ~2021-11-10 | MM_ITS ---
EXAMINATION: MM screening isrrael BI w tarsha HISTORY: Screening TECHNIQUE: Craniocaudal and mediolateral oblique 3-D tomosynthesis images were obtained and synthetic 2-D images were generated. CAD analysis was submitted and interpreted. COMPARISON: Comparison to multiple prior studies sequentially, with oldest reviewed study dated 08/30. BREAST PARENCHYMAL COMPOSITION: There are scattered areas of fibroglandular density. FINDINGS: There is no evidence of suspicious mass, calcification, or architectural distortion to sugg est malignancy in either breast. There has been no suspicious interval change. IMPRESSION: 1. No mammographic evidence of malignancy. 2. Recommend routine screening mammography in one year. BI-RADS Category 1: Negative Reviewed, dictated and finalized at location A. CAL TECHNICIAN
== END 2021-11-10 15:50 | disposition home or self-care (01) ==
LOC: ANHIMG 15:50
PROVIDERS: PCP Family Medicine; Visit Provider Obstetrics & Gynecology
DX: Z12.31 Encounter for screening mammogram for malignant neoplasm of breast (principal)
CPT/HCPCS: 77063; 77067

== ENCOUNTER 2022-04-12 11:53 | Outpatient (CLI) | payer BC, SELFPAY ==
[2022-04-12 12:08] LABS: Basophils Absolute Auto 0.03 K/mm3 (0.00-0.10); Basophils Percent Auto 0.5 % (0.0-1.0); Eosinophils Absolute Auto 0.08 K/mm3 (0.02-0.50); Eosinophils Percent Auto 1.2 % (1.0-6.0); Hematocrit 36.9 % (35.0-49.0); Hemoglobin 12.3 g/dL (12.0-15.0); Immature Granulocyte Absolute 0.03 K/mm3 (0.00-0.00); Immature Granulocyte Percent A 0.5 % (0.0-0.0); Lymphocytes Absolute Auto 1.82 K/mm3 (1.10-4.50); Lymphocytes Percent Auto 27.5 % (18.0-42.0); Mean Corpuscular HGB Conc 33.3 g/dL (32.0-36.0); Mean Corpuscular Hemoglobin 31.4 pg (27.0-31.0); Mean Corpuscular Volume 94.1 fL (78.0-102.0); Mean Platelet Volume 9.5 fl (9.2-11.8); Monocytes Absolute Auto 0.48 K/mm3 (0.10-0.90); Monocytes Percent Auto 7.3 % (2.0-11.0); Neutrophils Absolute Auto 4.2 K/mm3 (1.7-7.2); Platelet Count Result 243 K/mm3 (150-420); Red Blood Count 3.92 M/mm3 (4.20-5.40); Red Cell Distribution Width 13.2 % (11.6-14.4); White Blood Count 6.6 K/mm3 (4.8-10.8)
[2022-04-12 13:15] LABS: Thyroid Stimulating Hormone Reflex 1.86 u/IU/mL (0.36-3.74)
[2022-04-12 13:15] LABS: Alanine Aminotransferase 29 U/L (14-59); Albumin Level 3.9 g/dL (3.4-5.0); Alkaline Phosphatase 72 U/L (46-116); Anion Gap 10 mmol/L (8-16); Aspartate Amino Transferase 19 U/L (15-37); Bilirubin,Total 0.4 mg/dL (0.00-1.00); Blood Urea Nitrogen 16 mg/dL (7-18); Carbon Dioxide 27 mmol/L (21-32); Chloride 106 mmol/L (98-108); Cholesterol 161 mg/dL (0-200); Estimated Glomerular Filt Rate > 60; Glucose 100 mg/dL (70-99); HDL Direct 57 mg/dL (40-60); LDL Cholesterol Calculated 71 mg/dL (<130); Osmolality Calculated 297 mOsm/kg (285-295); Potassium 3.9 mmol/L (3.5-5.1); Sodium 143 mmol/L (136-145); Total Protein 7.2 g/dL (6.4-8.2); Triglycerides 163 mg/dL (0-150)
== END 2022-04-12 11:54 | disposition home or self-care (01) ==
LOC: CHSLAB 11:56
PROVIDERS: PCP Family Medicine; Visit Provider Internal Medicine Cardiovascular Disease
DX: E78.2 Mixed hyperlipidemia (principal)
CPT/HCPCS: 36415; 80053; 80061; 83036; 84443; 85025

== ENCOUNTER 2022-08-21 15:45 | Emergency (ER) | payer BC, SELFPAY ==
--- NOTE | ~2022-08-21 | XR_ITS ---
EXAM: XR abdomen/kub 1V DATE: 08/21/2022 16:46 HISTORY: left flank pain,ACUTE,NAUSEA . COMPARISON: CT abdomen and pelvis, performed on the same date. FINDINGS: Cholecystectomy clips. Surgical clips over the right inguinal crease. Normal bowel gas pat tern. No organomegaly. A rounded, vascular calcification projects over the right L5 transverse proces s. Multiple pelvic phleboliths. Punctate right upper pole calcification. 3 mm left UVJ stone. Regiona l bones and soft tissues normal for age. IMPRESSION: 3 mm left UVJ stone. Reviewed, dictated and finalized at location K. TER SLOTTER HELPER IMPRESSION: 3 mm left UVJ stone.
--- NOTE | ~2022-08-21 | CT_ITS ---
EXAMINATION: CT abdomen pelvis wo con DATE: 08/21/2022 16:46 INDICATION: Acute left flank pain TECHNIQUE: Computed tomography (CT) of the abdomen and pelvis was performed without intravenous contr ast. Automated exposure control and iterative reconstruction technique were employed. Exam dose: 667 .78 mGy-cm total exam DLP. COMPARISON: 11/05/2021 CT renal scan FINDINGS: The lung bases are clear of infiltrate or consolidation. Normal heart size. There is trace pericardial fluid. No pleural effusion. Status post cholecystectomy. The liver, spleen, pancreas, adrenal glands are unremarkable. 2 mm nonobstructing upper pole right renal calculus. The urinary bladder is unremarkable. The uterus appears to be surgically absent. There is an approximately 2.1 x 3.8 mm left ureterovesical junction calculus, with associated mild le ft hydroureteronephrosis. Normal caliber of the abdominal aorta. No intraperitoneal or retroperitoneal or pelvic mass lesion or adenopathy or ascites. No bowel obstruction or intraperitoneal free air. Small fat-containing umbilical hernia. Prominent degenerative disease and minimal retrolisthesis at L5-S1 IMPRESSION: Approximately 2.1 x 3.8 mm left ureterovesical junction calculus with mild left hydroure teronephrosis 2 mm nonobstructing upper pole right renal calculus Reviewed, dictated and finalized at Location A. Reviewed, dictated and finalized at location A. CONSERVATIONIST IMPRESSION: Approximately 2.1 x 3.8 mm left ureterovesical junction calculus w ith mild left hydroureteronephrosis 2 mm nonobstructing upper pole right renal calculus
[2022-08-21 16:25] LABS: Basophils Absolute Auto 0.01 K/mm3 (0.00-0.10); Basophils Percent Auto 0.1 % (0.0-1.0); Eosinophils Absolute Auto 0.05 K/mm3 (0.02-0.50); Eosinophils Percent Auto 0.7 % (1.0-6.0); Hematocrit 33.3 % (35.0-49.0); Hemoglobin 11.3 g/dL (12.0-15.0); Immature Granulocyte Absolute 0.03 K/mm3 (0.00-0.00); Immature Granulocyte Percent A 0.4 % (0.0-0.0); Lymphocytes Absolute Auto 1.34 K/mm3 (1.10-4.50); Lymphocytes Percent Auto 19.1 % (18.0-42.0); Mean Corpuscular HGB Conc 33.9 g/dL (32.0-36.0); Mean Corpuscular Hemoglobin 33.5 pg (27.0-31.0); Mean Corpuscular Volume 98.8 fL (78.0-102.0); Mean Platelet Volume 9.5 fl (9.2-11.8); Monocytes Percent Auto 5.7 % (2.0-11.0); Neutrophils Absolute Auto 5.2 K/mm3 (1.7-7.2); Platelet Count Result 154 K/mm3 (150-420); Red Blood Count 3.37 M/mm3 (4.20-5.40); Red Cell Distribution Width 12.9 % (11.6-14.4)
[2022-08-21 16:44] LABS: Alanine Aminotransferase 27 U/L (14-59); Albumin Level 3.5 g/dL (3.4-5.0); Alkaline Phosphatase 65 U/L (46-116); Anion Gap 10 mmol/L (8-16); Aspartate Amino Transferase 20 U/L (15-37); Bilirubin,Total 0.2 mg/dL (0.00-1.00); Blood Urea Nitrogen 19 mg/dL (7-18); Carbon Dioxide 26 mmol/L (21-32); Chloride 105 mmol/L (98-108); Estimated Glomerular Filt Rate > 60; Glucose 151 mg/dL (70-99); Osmolality Calculated 297 mOsm/kg (285-295); Potassium 3.7 mmol/L (3.5-5.1); Sodium 141 mmol/L (136-145); Total Protein 6.9 g/dL (6.4-8.2)
[2022-08-21 16:46] LABS: INR 1.1; Partial Thromboplastin Time 27.6 SEC (23.90-30.70); Prothrombin Time 11.5 Seconds (9.50-12.10)
[2022-08-21 17:00] VITALS: TEMP 36.2
[2022-08-21 17:24] LABS: Appearance Urine Clear (Clear); Bilirubin Urine Negative (Negative); Blood Urine 2+ (Negative); Glucose Urine UA Negative (Negative); Ketones Urine Negative (Negative); Leukocyte Esterase Ur Negative LEU/UL (Negative); Nitrate Urine Negative (Negative); Protein Urine Negative (Negative); Urobilinogen Urine 0.2 mg/dL (0.2-1.0)
[2022-08-21] MEDS: SODIUM CHLORIDE 0.9% IV 1,000 ML 999 ML IV CONT (17:24)
[2022-08-21] MEDS: ONDANSETRON INJ 4 MG/2 ML VIAL IV PUSH (17:24)
[2022-08-21] MEDS: MORPHINE SULFATE (*CRX) 4 MG/ML INJ IV PUSH (17:24)
[2022-08-21 17:27] VITALS: BP 120/69; PULSE 86; RESP 16; TEMP 36.4; O2SAT 97
[2022-08-21 17:33] LABS: Add Urine Microscopic? YES; Bacteria Urine Trace /hpf; Color Urine Light Yellow (Yellow); Squamous Epithelial Cell Urine Few /hpf (Few); WBC Urine 0-3 /hpf (0-3)
--- NOTE | 2022-08-21 18:00 | ED.ABDPAIN ---
HPI - Abdominal Pain General Chief Complaint: Urogenital-Female Stated Complaint: pain in back and side Time Seen by Provider: 08/21/22 15:50 History of Present Illness HPI narrative: Pt presents with left flank pain since early this morning. Pt states the pain is constant but waxes and wanes in severity. Pt is nauseated but has not vomited. Pt has no urinary symptoms or fever. Related Data Home Medications Medication Instructions Recorded Confirmed gabapentin 300 mg capsule 500 mg PO BID 08/31/19 08/21/22 methotrexate (PF) 25 mg/0.4 mL 25 mg subcut WEEKLY 08/31/19 08/21/22 subcutaneous auto-injector (Otrexup (PF)) tramadol 50 mg tablet 100 mg PO DAILY 08/31/19 08/21/22 abatacept 125 mg/mL subcutaneous 125 mg subcut WEEKLY 03/23/21 08/21/22 auto-injector (Orencia ClickJect) spironolactone 50 mg tablet 50 mg PO DAILY 08/21/22 08/21/22 Allergies Allergy/AdvReac Type Severity Reaction Status Date / Time hydroxychloroquine Allergy Unknown Other Verified 08/21/22 17:40 quinapril Allergy Unknown LIP Verified 08/21/22 17:40 SWELLING Review of Systems Review of Systems: All systems reviewed & are unremarkable except as noted in HPI and below PMFSH Past Medical History Medical History (Updated 08/21/22 @ 19:22 by Angy Calloway III, DO) Acne vulgaris Actinic keratosis Acute low back pain (05/10/21) x-ray of the lumbar spine on 05/15/2021 revealed osteopenia, moderate to severe degenerative disc disease at L5-S1 and moderate disease at L2-L3. Acute non-recurrent maxillary sinusitis Anemia BMI 33.0-33.9,adult BMI 34.0-34.9,adult Breast cancer screening by mammogram COVID-19 (09/09/21) COVID symptoms 09/09/2021 with positive home test 09/15/2021. Patient also had COVID 08/03/2020 COVID-19 (03/21/22) 3rd episode with mild symptoms and fully vaccinated Essential (primary) hypertension Exposure to COVID-19 virus Gastritis (03/30/21) gastritis and gastric polyps on EGD on 03/30/2021 H/O urinary frequency Hyperkalemia Migraine without aura and without status migrainosus, not intractable Obesity (BMI 30.0-34.9) Pharyngitis Poor short term memory UTI (urinary tract infection) Surgical History Surgical History Hx of colonoscopy Hx of esophagogastroduodenoscopy Family History Family History Grandparent Family history of cardiovascular disease, Onset Age: 44 Carcinoma of colon, Onset Age: 84 Family history of pancreatic cancer, Onset Age: 75 Father Acute myocardial infarction, Onset Age: 48 Mother Family history of Alzheimer's disease, Onset Age: 72 Social History Social History Smoking status: Never smoker Alcohol intake: current Alcohol use details: Monthly Spiritual care concerns: No Exam Const: General: healthy appearing Nutritional Appearance: well nourished Orientation/consciousness: patient oriented x3 Limitations: no limitations HENMT: Head: normal to inspection Resp: Effort & Inspection: normal respiratory effort Cardio: Rate: regular rate Rhythm: regular rhythm GI: GI Palp: Yes Soft to palpation Auscultation: normal bowel sounds Back/Spine/Pelvis: Back: CVA tenderness (left) Skin: General skin exam: normal color Rashes: no rashes Neuro: General: patient oriented x3 Cranial nerves: Yes Nystagmus not present Speech: normal speech Extrem: General: normal to inspection, no clubbing, cyanosis or edema and no pedal edema Psych: Mental Status: mental status grossly normal Affect: normal affect Attitude: cooperative Course Vital Signs Vital signs: Vital Signs Temperature 97.2 F L 08/21/22 17:00 Oxygen Delivery Room Air 08/21/22 17:00 Temperature 97.2 F L 08/21/22 18:24 Pulse Rate 66 08/21/22 18:24 Respiratory Rate 16 08/21/22 18:24 Bloo
[2022-08-21 18:24] VITALS: BP 110/62; PULSE 66; RESP 16; TEMP 36.2; O2SAT 98
--- NOTE | 2022-08-21 19:08 | PC.NURSE ---
1800 WARM BLANKETS WERE PROVIDED. PT REPORTS PAIN IMPROVEMENT POST MEDICATION. URINE STRAINER, HAT, AND SPECIMEN CUP WERE PROVIDED TO PT FOR HOME USE. PT IS AWAITING ERP DECISION. WILL CONTINUE TO MONITOR.
== END 2022-08-21 18:30 | disposition home or self-care (01) ==
PROVIDERS: Emergency Provider Emergency Medicine
DX: N20.1 Calculus of ureter (principal)
CPT/HCPCS: 36415; 74018; 74176; 80053; 81001; 85025; 85610; 85730; 96361; 96374; 96375; 99284; J2270; J2405; J7030

== ENCOUNTER 2022-11-27 14:10 | Outpatient (CLI) | payer BC, SELFPAY ==
--- NOTE | ~2022-11-27 | XR_ITS ---
XR abdomen/kub 1V 11/27/2022 14:34 Indication: Left ureteral stone Procedure: KUB Comparison: 08/21/2022 Findings: There are cholecystectomy clips. Bowel gas pattern is nonobstructive. Moderate colonic feca l loading. There are pelvic phleboliths. No definite renal/ureteral stone is seen. Impression: 1: No acute abdominal abnormality. Reviewed, dictated and finalized at location L. ASSEMBLER Impression: 1: No acute abdominal abnormality.
== END 2022-11-27 14:11 | disposition home or self-care (01) ==
LOC: CHSIMG 14:15
PROVIDERS: PCP Family Medicine; Visit Provider Urology
DX: N20.1 Calculus of ureter (principal)
CPT/HCPCS: 74018

== ENCOUNTER 2022-12-26 13:39 | Outpatient (CLI) | payer BC, SELFPAY ==
--- NOTE | ~2022-12-26 | DEXA_ITS ---
Bone Density Report Name: CARLY GUZMAN Age: 57 Sex: Female Ethnicity: White Date of : 1965 Indication: postmenopausal; screening for osteoporosis; history of glucocorticoids; prior fracture; hysterectomy; rheumatoid arthritis; Referring Provider: MEG FINCH Study: Bone densitometry was performed. Exam Date: December 26, 2022 Accession number: [id number] Bone Density: Region BMD T-score Z-score Classification AP Spine(L1-L4) 0.987 -0.5 0.7 Normal Femoral Neck (Left) 0.705 -1.3 -0.1 Osteopenia Total Hip (Left) 1.051 0.9 1.7 Normal World Health Organization criteria for BMD impression classify patients as: Normal (T-score at or above -1.0), Osteopenia (T-score between -1.0 and -2.5), or Osteoporosis (T-score at or below -2.5). 10-year Fracture Risk: FRAX not reported because: Prior hip or vertebral fracture Clinical Information Provided by Patient: Have had a previous hip or vertebral fracture Has had a low trauma fracture Has taken Glucocorticoids Has rheumatoid arthritis Has used the following medications: HRT (i.e. estrogen/hormone therapy) Has the following medical conditions: Hysterectomy Patient maximum height was 61.5 Menopause Age: 24 Drinks caffeinated beverages Onset of menses at age 8 Number of children 2 Impression: The patient has low bone mass, based on the Left Femoral Neck T-score. The patient has risk factors, including: previous fracture, history of glucocorticoid therapy. Discussion: INCREASED RISK OF FRACTURE DUE TO HISTORY OF FRACTURE. The patient's previous fracture puts the patient at high risk of a future fracture. In untreated patients, the risk of osteoporotic fracture increases approximately two-fold for each 1.0 SD decrease in T-score. Low bone density is not the only risk factor for fracture; also consider factors such as patient's age, frailty or poor health, risk of falling, risk of injury, previous osteoporotic fracture, family history of osteoporosis, cigarette smoking, low body weight, etc. Not everyone with a low trauma fracture has osteoporosis; osteomalacia and other metabolic bone disorders should also be considered. Patients who have osteoporosis should be evaluated for specific diseases and conditions (secondary causes) that may cause or contribute to bone loss and fracture risk. National Osteoporosis Foundation (NOF) recommends pharmacologic intervention for patients with a prior hip or vertebral fracture regardless of BMD T-score. The patient should follow a healthful lifestyle (good nutrition with adequate calcium and vitamin D, and appropriate weight-bearing exercise). Follow-Up: Consider a repeat BMD and Vertebral Fracture Assessment (VFA) exam in 2 years or sooner if medically necessary, to reassess this patient's status. Reported by: NIHARIKA on 12/26/2022 2:04:00 PM.
--- NOTE | ~2022-12-26 | MM_ITS ---
EXAMINATION: MM screening isrrael BI w tarsha HISTORY: Screening TECHNIQUE: Craniocaudal and mediolateral oblique 3-D tomosynthesis images were obtained and synthetic 2-D images were generated. CAD analysis was submitted and interpreted. COMPARISON: Comparison to multiple prior studies sequentially, with oldest reviewed study dated 08/30. BREAST PARENCHYMAL COMPOSITION: 09/10/2016 FINDINGS: There are new focal asymmetries in the lower outer quadrant of the left breast, middle thir d. The right breast is stable without evidence for malignancy. IMPRESSION: 1. New left breast asymmetries, lower outer quadrant, middle third. 2. Additional mammographic views and possible breast ultrasound are recommended. BI-RADS Category 0: Incomplete: Needs additional imaging evaluation. Reviewed, dictated and finalized at location A. IMPRESSION: 1. New left breast asymmetries, lower outer quadrant, middle third. 2. Additional mammographic views and possible breast ultrasound are recommended . BI-RADS Category 0: Incomplete: Needs additional imaging evaluation.
== END 2022-12-26 13:40 | disposition home or self-care (01) ==
PROVIDERS: PCP Family Medicine; Visit Provider Obstetrics & Gynecology
DX: Z12.31 Encounter for screening mammogram for malignant neoplasm of breast (principal); R92.8 Other abnormal and inconclusive findings on diagnostic imaging of breast; M85.80 Other specified disorders of bone density and structure, unspecified site
CPT/HCPCS: 77063; 77067; 77080

== ENCOUNTER 2022-12-27 16:07 | Emergency (ER) | payer BC, SELFPAY ==
[2022-12-27 16:14] VITALS: BP 125/76; PULSE 86; TEMP 36.2; O2SAT 99
--- NOTE | 2022-12-27 16:43 | ED.FEVER ---
HPI - Fever General Chief Complaint: Unspecified Stated Complaint: nodules on neck/head Time Seen by Provider: 12/27/22 16:11 Source: patient Mode of arrival: ambulatory Limitations: no limitations History of Present Illness HPI Narrative: this is a 57-year-old female recently diagnosed with strep throat and was started on amoxicillin and patient called her primary care physician concerned that she was having some swollen cervical lymph nodes and 1 right auricular lymph node swelling and tenderness with some low-grade fevers at currently the patient is afebrile vitals are stable has been on amoxicillin and currently there is no sinus congestion no nasal discharge no shortness of breath no nausea vomiting. MD elicited complaint: fever Onset (ago): day(s) Related Data Home Medications Medication Instructions Recorded Confirmed methotrexate (PF) 25 mg/0.4 mL 25 mg subcut WEEKLY 08/31/19 12/27/22 subcutaneous auto-injector (Otrexup (PF)) abatacept 125 mg/mL subcutaneous 125 mg subcut WEEKLY 03/23/21 12/27/22 auto-injector (Orencia ClickJect) estradiol 1 mg tablet 1 mg PO DAILY 10/15/22 12/27/22 ferrous sulfate 325 mg (65 mg 325 mg PO DAILY 10/15/22 12/27/22 iron) tablet,delayed release gabapentin 300 mg capsule 600 mg PO QHS 10/15/22 12/27/22 spironolactone 50 mg tablet 25 mg PO DAILY 10/15/22 12/27/22 tramadol 50 mg tablet 50 mg PO QHS 10/15/22 12/27/22 Allergies Allergy/AdvReac Type Severity Reaction Status Date / Time hydroxychloroquine Allergy Unknown Other Verified 09/17/22 15:22 quinapril Allergy Unknown LIP Verified 09/17/22 15:22 SWELLING Review of Systems Review of Systems: All systems reviewed & are unremarkable except as noted in HPI and below PMFSH Past Medical History Medical History Acne vulgaris Actinic keratosis Acute low back pain (05/10/21) x-ray of the lumbar spine on 05/15/2021 revealed osteopenia, moderate to severe degenerative disc disease at L5-S1 and moderate disease at L2-L3. Acute non-recurrent maxillary sinusitis Anemia BMI 31.0-31.9,adult BMI 33.0-33.9,adult BMI 34.0-34.9,adult Breast cancer screening by mammogram mammogram normal on 11/13/2021. new asymmetry left breast 12/26/2022. COVID-19 (09/09/21) COVID symptoms 09/09/2021 with positive home test 09/15/2021. Patient also had COVID 08/03/2020 COVID-19 (03/21/22) 3rd episode with mild symptoms and fully vaccinated Essential (primary) hypertension Exposure to COVID-19 virus Gastritis (03/30/21) gastritis and gastric polyps on EGD on 03/30/2021 H/O urinary frequency Hormone replacement therapy Hyperkalemia Potassium normal at 3.9 on 09/25/2022. Migraine without aura and without status migrainosus, not intractable Obesity (BMI 30.0-34.9) Pharyngitis Poor short term memory Screening for diabetic retinopathy (09/27/22) no diabetic retinopathy on 09/27/2022. UTI (urinary tract infection) Surgical History Surgical History Hx of colonoscopy Hx of esophagogastroduodenoscopy Family History Family History Grandparent Family history of cardiovascular disease, Onset Age: 44 Carcinoma of colon, Onset Age: 84 Family history of pancreatic cancer, Onset Age: 75 Father Acute myocardial infarction, Onset Age: 48 Mother Family history of Alzheimer's disease, Onset Age: 72 Social History Social History Smoking status: Never smoker Alcohol intake: current Alcohol use details: Monthly Substance use: never Substance use type: does not use Lack of Food: Never True Current Housing: I Have Housing Concerned About Future Housing: No Difficulty Paying Gas/Electric Bills: No Difficulty Paying for Meds: No Currently Unemployed: No Education: Trade/Vocational
== END 2022-12-27 16:55 | disposition home or self-care (01) ==
LOC: CHSED 16:54
PROVIDERS: Emergency Provider Emergency Medicine; PCP Family Medicine
DX: L04.0 Acute lymphadenitis of face, head and neck (principal); I10 Essential (primary) hypertension
CPT/HCPCS: 99283

== ENCOUNTER 2023-02-11 13:46 | Outpatient (CLI) | payer BC, SELFPAY ==
--- NOTE | ~2023-02-11 | MMUS_ITS ---
EXAMINATION: MM diagnostic isrrael LT w tarsha, US breast LT limited HISTORY: Left breast focal asymmetry on screening mammogram TECHNIQUE: Additional 3-D tomosynthesis images of the left breast were performed and synthetic 2-D im ages were generated. CAD analysis was submitted and interpreted. High resolution limited left breast ultrasound was performed. COMPARISON: 12/26/2022, 11/10/2021, 11/08/2020 BREAST PARENCHYMAL COMPOSITION: The breasts are almost entirely fatty. FINDINGS: MAMMOGRAPHIC FINDINGS: There is persistent developing asymmetry in the lower outer quadrant of the left breast at the 4:00 l ocation 9 cm from the nipple. No suspicious calcification is identified. ULTRASOUND: There is no evidence of focal abnormal solid or cystic mass in the vicinity of the mammographic findi ng in question. IMPRESSION: 1. Developing asymmetry of the left breast without suspicious sonographic correlate. 2. Tomosynthesis guided biopsy is recommended. BI-RADS category 4, suspicious findings. Reviewed, dictated and finalized at location A. IMPRESSION: 1. Developing asymmetry of the left breast without suspicious sonographic corre late. 2. Tomosynthesis guided biopsy is recommended. BI-RADS category 4, suspicious findings.
== END 2023-02-11 13:47 | disposition home or self-care (01) ==
LOC: ANHIMG 13:47
PROVIDERS: PCP Family Medicine; Visit Provider Obstetrics & Gynecology
DX: R92.8 Other abnormal and inconclusive findings on diagnostic imaging of breast (principal)
CPT/HCPCS: 76642; 77061; 77065; G0279

== ENCOUNTER 2023-04-23 08:34 | Outpatient (CLI) | payer OTHER, SELFPAY ==
--- NOTE | 2023-04-25 13:16 | WPDHOMESLEEP ---
Sleep Study - Home Unattended Date of Study: 04/23/23 Ordering Provider: Ander Triplett DO Interpreting Provider: Ofelia Garcia MD Home Sleep Study Type: Watch PAT Height: 1.57 m Weight: 79.832 kg Body Mass Index: 32.1 Neck Circumference (inches): 13.25 [place]: 15 Reason for Sleep Study Daytime hypersomnia Sleep History Faye Lennon is a 57-year-old female with history of hypertension, dyslipidemia, rheumatoid arthritis who underwent a home sleep study for evaluation of hypersomnia, referred by her railway patrol officer. She occasionally awakens from sleep short of breath. She never awakens at night with heartburn, belching or cough. She occasionally snores. She never snores loudly enough that others complain. She frequently has trouble sleeping when she has a cold. She occasionally suddenly wakes up gasping for breath during the night. She rarely has breathing problems at night. She occasionally sweats excessively at night. She frequently notices her heart pounding or beating irregularly during the night. She never falls asleep during the day. She never falls asleep involuntarily or while driving. She never experiences loss of muscle tone with strong emotion. She occasionally feels paralyzed on waking or falling asleep. She rarely experiences vivid dreams upon waking or falling asleep. She does not feel afraid of going to sleep. She rarely has nightmares. She occasionally recalls her dreams. She frequently has thoughts racing through her mind. She rarely feels sad or depressed. She rarely feels anxiety or worry about things. She frequently notices parts of her body jerk. She frequently kicks during the night. She frequently feels crawling or aching feelings in her legs. She occasionally feels leg pain at night. She frequently grinds her teeth with sleep and frequently has morning jaw pain. She constantly feels bothered by pain during the day and frequently awakened by pain during the night. She constantly wakes up feeling stiff, sore, and achy in the morning with pain in her neck, spine, or joints. Normal bedtime is around 11pm on the weekdays and same on the weekends, taking only about 5 min to fall asleep. She typically gets about 5 to 6 hours of sleep per night. Her wake up time is around 6:30am on the weekdays and 9am on the weekends. She typically wakes up around three times per night, awake 15 to 20 minutes and she will go to the bathroom. Habits: Never tobacco smoker. No caffeine use. No alcohol or substance use. [facility] Past Medical History Medical History Acne vulgaris Actinic keratosis Acute low back pain (05/10/21) x-ray of the lumbar spine on 05/15/2021 revealed osteopenia, moderate to severe degenerative disc disease at L5-S1 and moderate disease at L2-L3. Acute non-recurrent maxillary sinusitis Anemia BMI 31.0-31.9,adult BMI 33.0-33.9,adult BMI 34.0-34.9,adult Breast cancer screening by mammogram mammogram normal on 11/13/2021. new asymmetry left breast 12/26/2022. COVID-19 (09/09/21) COVID symptoms 09/09/2021 with positive home test 09/15/2021. Patient also had COVID 08/03/2020 COVID-19 (03/21/22) 3rd episode with mild symptoms and fully vaccinated Essential (primary) hypertension Exposure to COVID-19 virus Gastritis (03/30/21) gastritis and gastric polyps on EGD on 03/30/2021 H/O urinary frequency Hormone replacement therapy Hyperkalemia Potassium normal at 3.9 on 09/25/2022. Migraine without aura and without status migrainosus, not intractable Obesity (BMI 30.0-34.9) Osteopenia after menopause (12/26/22) DEXA scan 12/26/2022 with T-score -0.5 at the spine, -1.3 left hip, 0.9 right hip. Osteopenia of the left hip. Pharyngitis Poor short term memory Screening for diabetic retinopathy (09/27/22) no diabetic retinopathy on 09/27/2022. UTI (urinary tract infection) Surgical History Surgical History Hx of colon
[2023-04-25 13:26] VITALS: BMI 32.1
== END 2023-04-24 12:32 | disposition home or self-care (01) ==
PROVIDERS: PCP Family Medicine; Visit Provider Internal Medicine Cardiovascular Disease
DX: G47.10 Hypersomnia, unspecified (principal); I10 Essential (primary) hypertension; E78.5 Hyperlipidemia, unspecified
CPT/HCPCS: 95800

== ENCOUNTER 2023-07-06 07:10 | Outpatient (CLI) | payer OTHER, SELFPAY ==
[2023-07-06 08:44] LABS: Alanine Aminotransferase 83 U/L (14-59); Albumin Level 3.7 g/dL (3.4-5.0); Alkaline Phosphatase 77 U/L (46-116); Aspartate Amino Transferase 29 U/L (15-37); Bilirubin Direct 0.1 mg/dL (0-0.2); Bilirubin,Total 0.2 mg/dL (0.00-1.00); GGT 36 U/L (5-55); Total Protein 6.7 g/dL (6.4-8.2)
== END 2023-07-06 07:11 | disposition home or self-care (01) ==
LOC: CHSLAB 07:17
PROVIDERS: PCP Family Medicine; Visit Provider Family Medicine
DX: R74.8 Abnormal levels of other serum enzymes (principal)
CPT/HCPCS: 36415; 80076; 82977

== ENCOUNTER 2023-07-13 07:32 | Outpatient (CLI) | payer OTHER, SELFPAY ==
[2023-07-16 12:39] LABS: NIL 0.03 IU/mL; Quantiferon TB Plus, 1T NEGATIVE (NEGATIVE)
[2023-07-16 17:42] LABS: Hepatitis B Core Ab Total Nonreactive (Nonreactive)
[2023-07-16 17:43] LABS: Hepatitis B Surface Antigen Nonreactive (Nonreactive); Hepatitis C Virus Antibody Nonreactive
== END 2023-07-13 07:33 | disposition home or self-care (01) ==
LOC: CHSLAB 07:35
PROVIDERS: Visit Provider Internal Medicine
DX: M06.9 Rheumatoid arthritis, unspecified (principal); M05.89 Other rheumatoid arthritis with rheumatoid factor of multiple sites
CPT/HCPCS: 36415; 86480; 86704; 86803; 87340

== ENCOUNTER 2024-05-18 16:30 | Outpatient (CLI) | payer OTHER, SELFPAY ==
[2024-05-18 17:08] LABS: Alanine Aminotransferase 34 U/L (6-35); Aspartate Amino Transferase 40 U/L (14-36)
== END 2024-05-18 16:31 | disposition home or self-care (01) ==
LOC: ANHLAB 16:35
PROVIDERS: PCP Family Medicine; Visit Provider Podiatrist Foot & Ankle Surgery
DX: B35.1 Tinea unguium (principal)
CPT/HCPCS: 36415; 84450; 84460

== ENCOUNTER 2024-11-18 10:25 | Outpatient (CLI) | payer OTHER, SELFPAY ==
--- NOTE | ~2024-11-18 | MMUS_ITS ---
EXAMINATION: MM diagnostic isrrael RT w tarsha, US breast LT limited HISTORY: Palpable breast abnormality. TECHNIQUE: Additional 3-D tomosynthesis images of the left breast were performed and synthetic 2-D im ages were generated. CAD analysis was submitted and interpreted. High resolution Limited left breast ultrasound was performed. COMPARISON: Comparison to multiple prior studies sequentially, with oldest reviewed study dated 12/2019. BREAST PARENCHYMAL COMPOSITION: Not dense: There are scattered areas of fibroglandular density. FINDINGS: MAMMOGRAPHIC FINDINGS: There are no suspicious masses, calcifications or architectural distortion in either breast to sugges t malignancy. ULTRASOUND: Limited left breast ultrasound: At 12:00, 10 cm from the nipple there is a 0.24 cm cyst corresponding to the area palpable concern. No suspicious masses to suggest malignancy. IMPRESSION: 1. No evidence for malignancy in the left breast. 2. Routine yearly screening mammogram and regular clinical breast examination are recommended. BI-RADS Category 2: Benign finding(s). Reviewed, dictated and finalized at location B. N [facility] IMPRESSION: 1. No evidence for malignancy in the left breast. 2. Routine yearly screening mammogram and regular clinical breast examination a re recommended. BI-RADS Category 2: Benign finding(s).
--- OUTSIDE RECORDS SUMMARY | 2024-11-18 10:38 | XMS_ITS | Encounter Summary ---
Author Organization [facility] Healthcare Address [address] [place] [address] Care Team Providers Care Network Associate Name Role Phone Ken Best MD Primary Care Provider [phone] Reason for Visit * Diagnostic Imaging (Routine) - Closed Specialty Diagnoses / Procedures Referred By Contac t Referred To Contact Procedures Breast Imaging Screening Outside Reference Cezar Hull NP Phone: tel: fax: Referral ID Status Reason Start Date Expiration Date Visits Re quested Visits Authorized [id number] Closed 03/01/2023 03/30/2024 1 1 Encounter Details Date Type Department Care Team (Late st Contact Info) Description 11/03/2019 Hospital Encounter [facility] [address] [place] [id number] Social History Tobacco Use Types Packs/Day Years Used Date Smoking Tobacco: Never Smokeless Tobacco: Never Alcohol Use Standard Drinks/Week Comments Yes 0 (1 standard drink = 0.6 oz pur e alcohol) Comments Unknown Sex and Gender Information Value Date Recorded Sex Assigned at Not on file Legal Sex Female 12:37 AM DERRICK OPERATOR Gender Identity Not on file Sexual Orientation Not on file documented as of this encounter Plan of Treatment Not on file documented as of this encounter Procedures Procedure Name Priority Date/Time Associated Diagnosis Comments BREAST IMAGING MG SCREENING OUTSIDE REFERENCE Routine 11/03/2019 12:00 AM DERRICK OPERATOR documented in this encounter Results * Breast Imaging Screening Outside Reference (11/03/2019 12:00 AM DERRICK OPERATOR) Impressions [facility] - 03/01/2023 8:38 AM CDT These images are for Reference purposes only and have not been reviewed by [facility] Radiology. There will be no report generated by a [facility] Radiologist. Narrative [facility] - 03/01/2023 8:38 AM CDT EXAMINATION: Images For Reference Purposes Only us Cezar Hull CODING QUALITY COORDINATOR IMG MAMMO PROCEDURES Final Result [facility] documented in this encounter Visit Diagnoses Not on filedocumented in this encounter Care Teams Network Associate Relationship Specialty Start Date End Date Ken Best MD [address] [address] PCP - General 09/18/17 documented as of this encounter
--- OUTSIDE RECORDS SUMMARY | 2024-11-18 10:38 | XMS_ITS | Encounter Summary ---
Author Organization [facility] Healthcare Address [address] [place] [address] Care Team Providers Care Hogshead Weigher Name Role Phone Ken Best MD Primary Care Provider [phone] Reason for Visit * Diagnostic Imaging (Routine) - Closed Specialty Diagnoses / Procedures Referred By Contac t Referred To Contact Procedures Breast Imaging Screening Outside Reference Cezar Hull NP Phone: tel: fax: Referral ID Status Reason Start Date Expiration Date Visits Re quested Visits Authorized [id number] Closed 03/01/2023 03/30/2024 1 1 Encounter Details Date Type Department Care Team (Late st Contact Info) Description 11/08/2020 Hospital Encounter [facility] Radiology [facility]) [address] [place] [id number] Social History Tobacco Use Types Packs/Day Years Used Date Smoking Tobacco: Never Smokeless Tobacco: Never Alcohol Use Standard Drinks/Week Comments Yes 0 (1 standard drink = 0.6 oz pur e alcohol) Comments Unknown Sex and Gender Information Value Date Recorded Sex Assigned at Not on file Legal Sex Female 12:37 AM AWNING CRAFTSPERSON Gender Identity Not on file Sexual Orientation Not on file documented as of this encounter Plan of Treatment Not on file documented as of this encounter Procedures Procedure Name Priority Date/Time Associated Diagnosis Comments BREAST IMAGING MG SCREENING OUTSIDE REFERENCE Routine 11/08/2020 12:00 AM AWNING CRAFTSPERSON documented in this encounter Results * Breast Imaging Screening Outside Reference (11/08/2020 12:00 AM AWNING CRAFTSPERSON) Impressions [facility] - 03/01/2023 8:38 AM CDT These images are for Reference purposes only and have not been reviewed by [facility] Radiology. There will be no report generated by a [facility] Radiologist. Narrative [facility] - 03/01/2023 8:38 AM CDT EXAMINATION: Images For Reference Purposes Only us Cezar Hull NP IMG MAMMO PROCEDURES Final Result [facility] documented in this encounter Visit Diagnoses Not on filedocumented in this encounter Care Teams Hogshead Weigher Relationship Specialty Start Date End Date Ken Best MD [address] [address] PCP - General 09/18/17 documented as of this encounter
--- OUTSIDE RECORDS SUMMARY | 2024-11-18 10:38 | XMS_ITS | Encounter Summary ---
Author Organization [facility] Healthcare Address [address] [place] [address] Care Team Providers Care Product Marketing Manager Name Role Phone Ken Best MD Primary Care Provider [phone] Reason for Visit * Diagnostic Imaging (Routine) - Closed Specialty Diagnoses / Procedures Referred By Contac t Referred To Contact Procedures Breast Imaging Screening Outside Reference Cezar Hull NP Phone: tel: fax: Referral ID Status Reason Start Date Expiration Date Visits Re quested Visits Authorized [id number] Closed 03/01/2023 03/30/2024 1 1 Encounter Details Date Type Department Care Team (Late st Contact Info) Description 09/25/2017 Hospital Encounter [facility]iology [facility]) [facility] [place], [place] [id number] Social History Tobacco Use Types Packs/Day Years Used Date Smoking Tobacco: Never Smokeless Tobacco: Never Alcohol Use Standard Drinks/Week Comments Yes 0 (1 standard drink = 0.6 oz pur e alcohol) Comments Unknown Sex and Gender Information Value Date Recorded Sex Assigned at Not on file Legal Sex Female 12:37 AM ACTIVITY AID Gender Identity Not on file Sexual Orientation Not on file documented as of this encounter Plan of Treatment Not on file documented as of this encounter Procedures Procedure Name Priority Date/Time Associated Diagnosis Comments BREAST IMAGING MG SCREENING OUTSIDE REFERENCE Routine 09/25/2017 12:00 AM ACTIVITY AID documented in this encounter Results * Breast Imaging Screening Outside Reference (09/25/2017 12:00 AM ACTIVITY AID) Impressions [facility] - 03/01/2023 8:40 AM CDT These images are for Reference purposes only and have not been reviewed by [facility] Radiology. There will be no report generated by a [facility] Radiologist. Narrative [facility] - 03/01/2023 8:40 AM CDT EXAMINATION: Images For Reference Purposes Only Cezar Hull INSOLE ROUNDER IMG MAMMO PROCEDURES Final Result [facility] documented in this encounter Visit Diagnoses Not on filedocumented in this encounter Care Teams Product Marketing Manager Relationship Specialty Start Date End Date Ken Best MD [email or web address] [place] [address] [address] PCP - General 09/18/17 documented as of this encounter
--- OUTSIDE RECORDS SUMMARY | 2024-11-18 10:38 | XMS_ITS | Clinical Summary ---
Author Organization [facility] Address [address] [place] [address] Care Team Providers Care Manager Hematology Name Role Phone Ken Best MD Primary Care Provider [phone] [phone] Allergies Active Allergy Reactions Criticality Noted Date Comments Hydroxychloroquine Itching Low 02/17/2020 Medications ORENCIA CLICKJECT 125 MG/ML Solution Auto-injector Inject 125 mg as directed weekly. 01/18/2020 Active carvedilol 25 MG tablet Take 25 mg by mouth 2 (two) times daily. 12/16/2019 Active folic acid 1 MG tablet Take 1 mg by mouth daily. 12/16/2019 Active gabapentin 300 MG capsule Take 300 mg by mouth 2 (two) times daily. 12/16/2019 Active levothyroxine 75 MCG tablet Take 75 mcg by mouth daily. 07/23/2019 Active losartan 100 MG tablet Take 100 mg by mouth daily. 12/16/2019 Active meloxicam 15 MG tablet Take 15 mg by mouth daily as needed. 07/23/2019 Active metFORMIN ER 500 MG 24 hr tablet Take 500 mg by mouth daily with supper. TAKE 4 TABLETS BY MOUTH DAILY WITH EVENING MEAL 12/21/2019 Active Methotrexate Sodium (METHOTREXATE, PF,) 50 MG/2ML Solution Inject 25 mg into the skin weekly. 12/16/2019 Active predniSONE 5 mg tablet Take 10 mg by mouth daily. 07/29/2019 Active omeprazole EC 20 MG Tab EC tablet Take 20 mg by mouth daily. Active spironolactone 50 MG tablet Take 50 mg by mouth daily. 02/02/2020 Active traMADol 50 MG tablet Take 50 mg by mouth 3 (three) times daily. 04/14/2009 Active venlafaxine XR 150 MG 24 hr capsule Take 150 mg by mouth daily. 02/08/2020 Active HYDROcodone-phillip taminophen 5-325 MG tabletIndicatio ns:Chronic Pain Take 1 tablet by mouth every 6 (six) hours as needed. Indications: Chronic Pain 30 tablet 04/07/2020 Active Active Problems Problem Noted Date Diagnosed Date Biceps tendinitis of left upper extremity 2019 Glenoid labrum tear, left, subsequent encounter 03/02/2020 Adhesive capsulitis of left shoulder 02/17/2020 Family History Medical History Relation Comments Heart Disease Brother 1 No Known Problems Brother 2 Lung Disease Brother 3 Heart Disease Father Cancer Maternal Grandfather Cancer Maternal Grandmother Alzheimers Mother Heart Disease Mother Lung Disease Paternal Grandfather Lung Disease Paternal Grandmother No Known Problems Sister 1 No Known Problems Sister 2 Relation Status Comments Brother 1 Alive Brother 2 Alive Brother 3 Alive Father Maternal Grandfather Maternal Grandmother Mother Paternal Grandfather Paternal Grandmother Sister 1 Alive Sister 2 Social History Tobacco Use Types Packs/Day Years Used Date Smoking Tobacco: Never Smokeless Tobacco: Never Alcohol Use Standard Drinks/Week Comments Never 0 (1 standard drink = 0.6 oz pur e alcohol) AUDIT-C Answer Date Recorded Frequency of Alcohol Consumption Never 02/17/2020 Average Number of Drinks Not on file 020 Frequency of Binge Drinking Not on file 01/29 Comments Unknown Sex and Gender Information Value Date Recorded Sex Assigned at Not on file Legal Sex Female 2:08 PM CDT Gender Identity Not on file Sexual Orientation Not on file Last Filed Vital Signs Vital Sign Reading Time Taken Comments Blood Pressure - - Pulse - - Temperature - - Respiratory Rate - - Oxygen Saturation - - Inhaled Oxygen Concentration - - Weight 81.6 kg (180 lb) 05/12/2020 4:30 PM CDT Height 154.9 cm (5' 1 ) 05/12/2020 4:30 PM CDT Body Mass Index 34.01 05/12/2020 4:30 PM CDT Plan of Treatment Health Maintenance Due Date Last Done Comments Cervical Cancer Screening Pa p Smear (Age 30 to 64) Every 3 Years 1964 Colorectal Cancer Screening Colonoscopy (10 Years) 1964 Annual Physical 12/01/1967 Hepatitis C 1982 DTaP, Tdap and Td Vaccines ( 1 - Tdap) 12/01/1983 Cervical Cancer Screening Pa p with HPV Testing (Age 30 to 64) Every 5 Years 1994 Cervical Cancer Screening wi th HPV 1994 Mammogram Screening 2004 COVID-19 Vaccine (2023-2 5 season) 2024 Influenza Adult (#1) 2024 07/08/2017, 07/05/2016 Pneumococcal Vaccine: Pediatrics (0 to 5 Years) and At-Risk Patients (6 to 64 Years) Aged Out 04/17/2019 No longer eligible b ased on patient's age to complete this topic Zoster Vaccines Completed 06/24/2019, 04/17/2019 Meningococcal B Vaccine Aged Out No l onger eligible based on patient's age to complete this topic Meningococcal Vaccine Aged Out No eden paty eligible based on patient's age to complete this topic RSV Immunizations Under 20 Months Aged Out No longer eligible b ased on patient's age to complete this topic Insurance [facility] Care Teams Manager Hematology Relationship Specialty Start Date End Date Ken Best MD [address] [place] [address] [address] [place] [address] PCP - General FAMILY PRACTICE 02/16/20
--- OUTSIDE RECORDS SUMMARY | 2024-11-18 10:38 | XMS_ITS | Encounter Summary ---
Author Organization [facility] Healthcare Address [address] [place] [address] Care Team Providers Care Material Control Manager Name Role Phone Ken Best MD Primary Care Provider [phone] [phone] Reason for Visit * Diagnostic Imaging (Routine) - Closed Specialty Diagnoses / Procedures Referred By Contac t Referred To Contact Procedures Breast Imaging Screening Outside Reference Cezar Hull NP Phone: tel: fax: Referral ID Status Reason Start Date Expiration Date Visits Re quested Visits Authorized [id number] Closed 03/01/2023 03/30/2024 1 1 Encounter Details Date Type Department Care Team (Late st Contact Info) Description 09/29/2018 Hospital Encounter [facility] Radiology [facility] [place], [place] [id number] Social History Tobacco Use Types Packs/Day Years Used Date Smoking Tobacco: Never Smokeless Tobacco: Never Alcohol Use Standard Drinks/Week Comments Yes 0 (1 standard drink = 0.6 oz pur e alcohol) Comments Unknown Sex and Gender Information Value Date Recorded Sex Assigned at Not on file Legal Sex Female 12:37 AM LICENSED CHEMICAL SPRAY TECHNICIAN Gender Identity Not on file Sexual Orientation Not on file documented as of this encounter Plan of Treatment Not on file documented as of this encounter Procedures Procedure Name Priority Date/Time Associated Diagnosis Comments BREAST IMAGING MG SCREENING OUTSIDE REFERENCE Routine 09/29/2018 12:00 AM LICENSED CHEMICAL SPRAY TECHNICIAN documented in this encounter Results * Breast Imaging Screening Outside Reference (09/29/2018 12:00 AM LICENSED CHEMICAL SPRAY TECHNICIAN) Impressions [facility] - 03/01/2023 8:39 AM CDT These images are for Reference purposes only and have not been reviewed by [facility] Radiology. There will be no report generated by a [facility] Radiologist. Narrative [facility] - 03/01/2023 8:39 AM CDT EXAMINATION: Images For Reference Purposes Only us Cezar Hull COMMERCIAL TITLE EXAMINER IMG MAMMO PROCEDURES Final Result [facility] documented in this encounter Visit Diagnoses Not on filedocumented in this encounter Care Teams Material Control Manager Relationship Specialty Start Date End Date Ken Best MD [address] [address] PCP - General 09/18/17 documented as of this encounter
--- OUTSIDE RECORDS SUMMARY | 2024-11-18 10:38 | XMS_ITS | Encounter Summary ---
Author Organization [facility] Address [address] [place] [address] Phone Care Team Providers Care Rv Technician Name Role Phone Ken Best MD Primary Care Provider [phone] [phone] Benoit Jackson MD Unavailable [phone] Reason for Visit * Reason Onset Date Comments Medical Question/Miscellaneous 11/03/2024 Encounter Details Date Type Department Care Team (Late st Contact Info) Description 11/03/2024 Telephone [facility] Surgery [address] [facility] [address] [place] [address] Kane Gay MD [address] [place] [id number] Medical Question/Miscellaneous Social History Tobacco Use Types Packs/Day Years Used Date Smoking Tobacco: Never Smokeless Tobacco: Never Alcohol Use Standard Drinks/Week Comments Yes 0 (1 standard drink = 0.6 oz pur e alcohol) Comments Unknown Sex and Gender Information Value Date Recorded Sex Assigned at Not on file Legal Sex Female 12:37 AM MANAGER OF ADMINISTRATION Gender Identity Not on file Sexual Orientation Not on file documented as of this encounter Miscellaneous Notes * Telephone Encounter - Jacqueline Mcintosh RN - 11/03/2024 11:52 AM CST Patient has not been seen by Dr. Gay, needs a new referral placed to [facility] from PCP prior to scheduling. Biopsy 03/22 - negative now with new finding. GER OF ADMINISTRATION * Telephone Encounter - Jacqueline Mcintosh RN - 11/03/2024 11:47 AM CST Called and left VM for patient to return call requesting further information. Jacqueline Mcintosh RN Clinical Nurse Coordinator to Dr. Kane Gay and Dr. Della Hamilton [facility] Department of Surgery - Division of Surgical Oncology GER OF ADMINISTRATION * Telephone Encounter - Ilia Mcguire - 11/03/2024 11:04 AM CST Patient is calling to make an appointment with: Dr. Melanie Reeves Reason for the appointment request: Patient was supposed to see Dr Gay and KISHA Hull last year and she now has a lump on the left breast she had some imaging done but did not see the provider she was wondering if she could get some imaging re done. GER OF ADMINISTRATION documented in this encounter Plan of Treatment Not on file documented as of this encounter Visit Diagnoses Not on filedocumented in this encounter Care Teams Rv Technician Relationship Specialty Start Date End Date Ken Best MD [address] [place] [address] PCP - General 09/18/17 Benoit Jackson MD [address] [address] Referring Physician Obstetrics and Gynecology 02/14/23 documented as of this encounter
--- OUTSIDE RECORDS SUMMARY | 2024-11-18 10:38 | XMS_ITS | Clinical Summary ---
Author Organization [facility] Address [facility] [place] [address] Care Team Providers Care Manufacturing Job Titles Name Role Phone Ken Best MD Primary Care Provider [phone] Benoit Jackson MD Unavailable [phone] Allergies Active Allergy Reactions Criticality Noted Date Comments Hydroxychloroquine Itching High 05/14/2017 Medications carvedilol (COREG) 25 mg tablet TK 1 T PO BID 3 8 Active venlafaxine XR (EFFEXOR XR) 150 mg 24 hr capsule Take 150 mg by mouth. Active gabapentin (NEURONTIN) 300 mg capsule TK 2 CS PO QD HS 1 8 Active levothyroxine (SYNTHROID, LEVOTHROID) 75 mcg tablet TK 1 T PO QAM FOR THYROID 3 8 Active losartan (COZAAR) 100 mg tablet TK 1 T PO QD 3 8 Active meloxicam (MOBIC) 15 mg tablet TK 1 T PO ONCE D 1 8 Active methotrexate, PF, 25 mg/mL preservative free injection INJ 1 ML SC ONCE WEEKLY 6 8 Active metFORMIN XR (GLUCOPHAGE XR) 500 mg 24 hr tablet TK 4 TS D FOR BLOOD SUGAR 3 8 Active BD INSULIN SYRINGE 1 mL 25 x 1 syringe U UTD TO INJECT UNDER THE SKIN WEEKLY 11 8 Active topiramate (TOPAMAX) 50 mg tablet TK 1 AND 1/2 TS PO BID FOR MIGRAINE 3 8 Active BD Tuberculin Syringe 1 mL 25 gauge x 5/8 syringe 1 Active spironolactone (ALDACTONE) 50 mg tablet 1 Active folic acid (FOLVITE) 1 mg tablet 1 Active Orencia ClickJect 125 mg/mL auto-injector [address] (NexIUM) 20 mg capsule Take by mouth 0 Active estradioL (ESTRACE) 1 mg tablet 1 Active predniSONE (DELTASONE) 2.5 mg tablet 1 Active traMADoL (ULTRAM) 50 mg tablet 1 Active predniSONE (DELTASONE) 10 mg tabletIndication s:Acute Pain Take 3 twice daily for 4 days, then take 2 twice daily for 3 days, then take 3 twice daily for 3 days. Hold other prednisone prescription while taking this taper. 42 tablet 1 Active Additional Information Patient not taking.Reported on 10/12/2021 methocarbamoL (ROBAXIN) 500 mg tabletIndication s:Pain of both sacroiliac joints TAKE 1 TABLET(500 MG) BY MOUTH THREE TIMES DAILY NEEDED FOR MUSCLE SPASMS OR PAIN 90 tablet 1 2 Active Active Problems No known active problems Encounters Date Type Department Care Team Description 11/03/2024 Telephone [facility] Floor [address] [place] [address] Kane Gay MD Medical Question/Miscellaneous from Last 3 Months Surgical History Surgery Date Site/Laterality Comments IR INJECTION ARTHROGRAM SI J OINT BILATERAL WITH GUIDANCE 08/09/2021 Bilateral BREAST BIOPSY 03/07/2023 Left Family History Medical History Relation Name Comments Hypertension Brother Family history of hypertension - (Added by TW Conv) Hypertension Mother Family history of hypertension - (Added by TW Conv) Relation Name Status Comments Brother Mother Social History Tobacco Use Types Packs/Day Years Used Date Smoking Tobacco: Never Smokeless Tobacco: Never Alcohol Use Standard Drinks/Week Comments Yes 0 (1 standard drink = 0.6 oz pur e alcohol) Comments Unknown Sex and Gender Information Value Date Recorded Sex Assigned at Not on file Legal Sex Female 12:37 AM BOARDING SPECIALIST Gender Identity Not on file Sexual Orientation Not on file Obstetrics History Last Filed Vital Signs Vital Sign Reading Time Taken Comments Blood Pressure 124/71 08/09/2021 2:53 PM BOARDING SPECIALIST Pulse 77 08/09/2021 2:53 PM BOARDING SPECIALIST Temperature - - Respiratory Rate 18 08/09/2021 2:53 PM BOARDING SPECIALIST Oxygen Saturation 98% 08/09/2021 2:53 PM BOARDING SPECIALIST Inhaled Oxygen Concentration - - Weight 75.8 kg (167 lb) 03/31/2018 11:12 AM CDT Height 154.9 cm (5' 1 ) 03/31/2018 11:12 AM CDT Body Mass Index 31.55 03/31/2018 11:12 AM CDT Plan of Treatment Health Maintenance Due Date Last Done Comments Cervical Cancer Screening 1964 Colon Cancer Screening-Colonoscopy 1964 Depression Screening 1964 Hepatitis C Screening 1964 DTaP/Tdap/Td Vaccine (1 - Tdap) 12/01/1975 Hepatitis B Screening 1982 Regular Well Visit/Exam 18-64 1982 Pneumococcal vaccine <65 (2 of 2 - PPSV23 or PCV20) 06/12/2019 04/17/2019 Covid-19 Vaccine (3 - Modern a risk series) 12/10/2020 11/12/2020, 10/15/2020 Influenza Vaccine (#1) 2024 , 07/08/2018, 07/08/2017, Additional history exists Breast Cancer Screening-Mammogram 03/09/2025 024 Zoster Vaccine Completed 06/24/2019, 04/17/2019 Medical Devices Implanted Type Area Curtain Cutter Hand Device Identifier Shelf Expiration Date Model / Serial / Lot [employer] Partnership Eviva 13cm Identifier Biopsy Site [id number] - [id number] Implanted:Qty: 1 on 03/07/2023 by Dara Valera MD at [facility] Left: Breast [employer] Partnership [id number] 08/22/2023 [facility] / [id number] Procedures Procedure Name Priority Date/Time Associated Diagnosis Comments SCREENING MAMMOGRAM BILATERAL W BERTO Schedule Routine, Read Routine (OP Routine) 03/09/2024 9:56 AM CDT Screening mammogram, encounter for from Last 3 Months or Most Recently Relevant to Health Maintenance Results * Screening Mammogram Bilateral W Berto (03/09/2024 9:56 AM CDT) Anatomical Region Laterality Modality Breast Bilateral Mammography Narrative 03/11/2024 9:57 AM CDT Mammogram Technique: Bilateral Digital Breast Tomosynthesis, Bilateral C-view 2D Screening mammogram. Views obtained: bilateral craniocaudal and bilateral mediolateral oblique. Computer Aided Detection was performed. Mammogram Findings: The present examination has been compared to a prior imaging study performed at [facility] on 10/31/2011. There are scattered areas of fibroglandular density. There is no suspicious abnormality in either breast. Impression: There is no mammographic evidence of malignancy. Annual screening mammography is recommended. OVERALL FINAL ASSESSMENT: BI-RADS CATEGORY 1: Negative. Procedure Note Gracy High MD - 03/11/2024 Mammogram Technique: Bilateral Digital Breast Tomosynthesis, Bilateral C-view 2D Screening mammogram. Views obtained: bilateral craniocaudal and bilateral mediolateral oblique. Computer Aided Detection was performed. Mammogram Findings: The present examination has been compared to a prior imaging study performed at [facility] on 10/31/2011. There are scattered areas of fibroglandular density. There is no suspicious abnormality in either breast. Impression: There is no mammographic evidence of malignancy. Annual screening mammography is recommended. OVERALL FINAL ASSESSMENT: BI-RADS CATEGORY 1: Negative. us Self Screening Mammogram IMG MAMMO PROCEDURES Fi nal Result from Last 3 Months or Most Recently Relevant to Health Maintenance Insurance FOR[facility]LY [facility] CHOICE PLUS [facility] HMO/PPO Address: [address] [address] [place] [address] [facility] CHOICE PLUS [facility] H[facility]/PPO Address: [address] [address] [place] [address] COMMERCIAL GENERIC * Guarantor: ELENA [id number] Account Type Relation to Patient Date of Phone Billing Address Workers Comp Employer Care Teams Manufacturing Job Titles Relationship Specialty Start Date End Date Ken Best MD [address] [address] PCP - General 09/18/17 Benoit Jackson MD [address] [address] Referring Physician Obstetrics and Gynecology 02/14/23
--- OUTSIDE RECORDS SUMMARY | 2024-11-18 10:38 | XMS_ITS | Referral Summary ---
Author Organization [facility] Address [address] [place] [address] Care Team Providers Care Project Coach Name Role Phone Ken Best MD Primary Care Provider [phone] Source Comments [facility],non-owned Affiliates and Associated Physician Practices is amultiple site organization consisting of ambulatory clinics and hospital sitesin [place], [place], [place] and [place]. This disclosure is being madepursuant to the Care Everywhere program and may not contain all information available regarding this patient. Last updated 18.[facility] Allergies No known active allergies Medications * Be aware that medications may not be up to date on this document. Alwaysverify current medications with the patient. Medication Sig Dispensed Refills Start Date End Date Status EFFEXOR XR 150 MG CP24 Take 150 mg by mouth daily with breakfast. Active VESICARE 5 MG TABS Take 5 mg by mouth daily. Active Omeprazole 20 MG TBEC Take by mouth. Active Vitamin B-12 1000 MCG/ML SOLN by Injection route. Once monthly Active tramadol (ULTRAM) 50 MG tabletIndications:R heumatoid arthritis(714.0) ([facility]) Take 1 Tab by mouth 3 times daily. Take one or two pills with over the counter Tylenol for daily pain flare ups 270 3 04/14/2009 Active Methotrexate (Anti-Rheumatic) 2.5 MG TABSIndications:Rhe umatoid arthritis(714.0) ([facility]) Take 6 Tabs by mouth every 7 days before meal. 72 3 04/14/2009 Active meloxicam (MOBIC) 7.5 MG tabletIndications:R heumatoid arthritis(714.0) ([facility]) Take 1 Tab by mouth daily. One pill daily for 5-7a days to treat flare ups of pain and inflammation 90 3 04/14/2009 Active Active Problems Problem Noted Date Diagnosed Date Low back pain 04/14/2009 Insomnia 01/27/2009 Fibromyalgia 01/27/2009 PPD negative 01/27/1999 Overview (01/27/2009): 01/27/2009 PPD today Rheumatoid arthritis 04/14/1994 Overview (08/07/2015): Long standing nodules on feet levated RF and no erosions on Xray, Multiple biopsies of foot nodules showing Rheumatoid nodules. 01/27/2009 long standing diagnosis SSZ/ diclofenac. Immunizations Name Administration Dates Next Due FLU VACCINE QUAD IIV4 PF ID 07/05/2016 INFLUENZA VACCINE, QUADR. (F LUZONE; FLULAVAL; FLUARIX; AFLURIA QUADRIVALENT; 6MO+), 0.5 ML (IIV4) 07/08/2017 Social History Tobacco Use Types Packs/Day Years Used Date Smoking Tobacco: Never Smokeless Tobacco: Never Alcohol Use Standard Drinks/Week Comments Yes 0 (1 standard drink = 0.6 oz pur e alcohol) occ Sex and Gender Information Value Date Recorded Sex Assigned at Not on file Gender Identity Not on file Sexual Orientation Not on file Last Filed Vital Signs Vital Sign Reading Time Taken Comments Blood Pressure 116/64 09/20/2017 11:25 AM DINING SERVICES MANAGER Pulse 101 09/20/2017 11:25 AM DINING SERVICES MANAGER Temperature 36.8 C (98.3 F) 09/20/2017 11:25 AM DINING SERVICES MANAGER Respiratory Rate 18 09/20/2017 11:25 AM DINING SERVICES MANAGER Oxygen Saturation 98% 09/20/2017 11:25 AM DINING SERVICES MANAGER Inhaled Oxygen Concentration - - Weight 78.9 kg (174 lb) 09/20/2017 11:25 AM DINING SERVICES MANAGER Height 154.9 cm (5' 1 ) 09/20/2017 11:25 AM DINING SERVICES MANAGER Body Mass Index 32.88 09/20/2017 11:25 AM DINING SERVICES MANAGER Plan of Treatment Not on file Procedures Procedure Name Priority Date/Time Associated Diagnosis Comments COMPREHENSIVE METABOLIC PANEL Routine 04/14/2009 10:01 AM CDT Rheumatoid Arthritis (HCC) from Last 3 Months or Most Recently Relevant to Health Maintenance Results * COMPREHENSIVE METABOLIC PANEL (04/14/2009 10:01 AM CDT) Glucose 78 65 - 99 mg/dL [facility] ACCOUNT BILL BUN 14 5 - 26 mg/dL [facility] ACCOUNT BILL Creatinine 0.80 0.57 - 1.00 mg/dL [facility] ACCOUNT BILL eGFR by MDRD >59 >59 mL/min/1.7 3 [facility] ACCOUNT BILL eGFR by MDRD >59 >59 mL/min/1.7 3 [facility] ACCOUNT BILL Comment: Note: Persistent reduction for 3 months or more in an eGFR <60 mL/min/1.73 m2 defines CKD. Patients with eGFR values >/=60 mL/min/1.73 m2 may also have CKD if evidence of persistent proteinuria is present. Additional information may be found at [email or web address].org. BUN/Creatinine Ratio 18 8 - 27 [facility] ACCOUNT BILL Sodium 137 135 - 145 mmol/L [facility] ACCOUNT BILL Potassium 4.6 3.5 - 5.2 mmol/L [facility] ACCOUNT BILL Chloride 99 97 - 108 mmol/L [facility] ACCOUNT BILL CO2 24 20 - 32 mmol/L [facility] ACCOUNT BILL Calcium 9.6 8.5 - 10.6 mg/dL [facility] ACCOUNT BILL Protein Total 7.0 6.0 - 8.5 g/dL [facility] ACCOUNT BILL Albumin 4.4 3.5 - 5.5 g/dL [facility] ACCOUNT BILL Globulin Total 2.6 1.5 - 4.5 g/dL [facility] ACCOUNT BILL Albumin/Globulin Ratio 1.7 1.1 - 2.5 [facility] ACCOUNT BILL Bilirubin Total 0.2 0.1 - 1.2 mg/dL [facility] ACCOUNT BILL Alkaline Phosphatase 48 25 - 150 IU/L [facility] ACCOUNT BILL AST 28 0 - 40 IU/L [facility] ACCOUNT BILL ALT 27 0 - 40 IU/L [facility] ACCOUNT BILL BLOOD SPECIMEN / Unknown 04/14/2009 10:01 AM CDT 04/14/2009 6:43 PM CDT Narrative Resulting Agency Comment [facility] [address] [id number] Saravanan Escobedo MD LAB - CHEMISTRY [facility] Organization Address City/State/ZIP Co de Phone Number [facility] ACCOUNT BILL from Last 3 Months or Most Recently Relevant to Health Maintenance Administered Medications Care Teams Project Coach Relationship Specialty Start Date End Date Ken Best MD PCP - General 01/06/09
--- OUTSIDE RECORDS SUMMARY | 2024-11-18 10:38 | XMS_ITS | Referral Summary ---
Author Organization [facility] Address [address] [place] [address] Care Team Providers Care Jig Filler Name Role Phone Ken Best MD Primary Care Provider [phone] Benoit Jackson MD Unavailable [phone] Encounters Date Type Department Care Team Description 11/03/2024 Telephone [facility] Surgery [facility] [address] [place] [address] Kane aGy MD Medical Question/Miscellaneous from Last 3 Months Allergies Active Allergy Reactions Criticality Noted Date [...] Active Active Problems No known active problems Social History Tobacco Use Types Packs/Day Years Used Date Smoking Tobacco: Never Smokeless Tobacco: Never Alcohol Use Standard Drinks/Week Comments Yes 0 (1 standard drink = 0.6 oz pur e alcohol) Comments Unknown Sex and Gender Information Value Date Recorded Sex Assigned at Not on file Legal Sex Female 12:37 AM PRECISION DANCER Gender Identity Not on file Sexual Orientation Not on file Last Filed Vital Signs Vital Sign Reading Time Taken Comments Blood Pressure 124/71 08/09/2021 2:53 PM PRECISION DANCER Pulse 77 08/09/2021 2:53 PM PRECISION DANCER Temperature - - Respiratory Rate 18 08/09/2021 2:53 PM PRECISION DANCER Oxygen Saturation 98% 08/09/2021 2:53 PM PRECISION DANCER Inhaled Oxygen Concentration - - Weight 75.8 kg (167 lb) 03/31/2018 11:12 AM CDT Height 154.9 cm (5' 1 ) 03/31/2018 11:12 AM CDT Body Mass Index 31.55 03/31/2018 11:12 AM CDT Plan of Treatment Not on file Medical Devices Implanted Type Area Face Painter Device Identifier Shelf Expiration Date Model / Serial / Lot [employer] Eviva 13cm Identifier Biopsy Site [id number] - [id number] Implanted:Qty: 1 on 03/07/2023 by Dara Valera MD at [facility] Left: Breast [employer] Partnership [id number] 08/22/2023 [facility] VA-13 / / [id number] Procedures Procedure Name Priority Date/Time Associated Diagnosis Comments SCREENING MAMMOGRAM BILATERAL W JHONATHAN Schedule Routine, Read Routine (OP Routine) 03/09/2024 9:56 AM CDT Screening mammogram, encounter for from Last 3 Months or Most Recently Relevant to Health Maintenance Results * Screening Mammogram Bilateral W Jhonathan (03/09/2024 9:56 AM CDT) Anatomical Region Laterality Modality Breast Bilateral Mammography Narrative 03/11/2024 9:57 AM CDT Mammogram Technique: Bilateral Digital Breast Tomosynthesis, Bilateral C-view 2D Screening mammogram. Views obtained: bilateral craniocaudal and bilateral mediolateral oblique. Computer Aided Detection was performed. Mammogram Findings: The present examination has been compared to a prior imaging study performed at [facility] on 10/31/2011. There are scattered areas [...] to a prior imaging study performed at [facility] on 10/31/2011. There are scattered areas of fibroglandular density. There is no suspicious abnormality in either breast. Impression: There is no mammographic evidence of malignancy. Annual screening mammography is recommended. OVERALL FINAL ASSESSMENT: BI-RADS CATEGORY 1: Negative. us Self Screening Mammogram IMG MAMMO PROCEDURES Fi nal Result from Last 3 Months or Most Recently Relevant to Health Maintenance Insurance [facility], [facility] CHOICE PLUS [facility] H[facility]/PPO Address: [address] [address] [place] [address] [facility] CHOICE PLUS [facility] HMO/PPO Address: [place] [address] COMMERCIAL GENERIC * Guarantor: ELENA [id number] Account Type Relation to Patient Date of Phone Billing Address Workers Comp Employer Care Teams Jig Filler Relationship Specialty Start Date End Date Ken Best MD [address] [address] PCP - General 09/18/17 Benoit Jackson MD [address] [facility] [address] [address] Referring Physician Obstetrics and Gynecology 02/14/23
--- OUTSIDE RECORDS SUMMARY | 2024-11-18 10:38 | XMS_ITS | Patient Health Summary ---
Author Organization [facility] Address [address] [place] [address] Care Team Providers Care Training Specialist Name Role Phone Ken Best MD Primary Care Provider [phone] Note from [facility],non-owned Affiliates and Associated Physician Practices is amultiple site organization consisting of ambulatory clinics and hospital sitesin [place], [place], [place] and [place]. This disclosure is being madepursuant to the Care Everywhere program and may not contain all information available regarding this patient. Last updated 18.[facility] Allergies No known active allergies Medications * Be aware that medications may not be up to date on this document. Alwaysverify current medications with the patient. * EFFEXOR XR 150 MG CP24 Take 150 mg by mouth daily with breakfast. * VESICARE 5 MG TABS Take 5 mg by mouth daily. * Omeprazole 20 MG TBEC Take by mouth. * Vitamin B-12 1000 MCG/ML SOLN by Injection route. Once monthly * tramadol (ULTRAM) 50 MG tablet(Started 04/14/2009) Take 1 Tab by mouth 3 times daily. Take one or two pills with over the counter Tylenol for daily pain flare ups 3 refills left * Methotrexate (Anti-Rheumatic) 2.5 MG TABS(Started 04/14/2009) Take 6 Tabs by mouth every 7 days before meal. 3 refills left * meloxicam (MOBIC) 7.5 MG tablet(Started 04/14/2009) Take 1 Tab by mouth daily. One pill daily for 5-7a days to treat flare ups of pain and inflammation 3 refills left Active Problems Problem Noted Date Diagnosed Date Low back pain 04/14/2009 Insomnia 01/27/2009 Fibromyalgia 01/27/2009 PPD negative 01/27/1999 Rheumatoid arthritis 04/14/1994 Immunizations * FLU VACCINE QUAD IIV4 PF ID(Given 07/05/2016) * INFLUENZA VACCINE, QUADR. (FLUZONE; FLULAVAL; FLUARIX; AFLURIA QUADRIVALENT; 6MO+), 0.5 ML (IIV4)(Given 07/08/2017) Social History Tobacco Use Types Packs/Day Years [...] Comments Blood Pressure 116/64 09/20/2017 11:25 AM 7TH GRADE SOCIAL STUDIES TEACHER Pulse 101 09/20/2017 11:25 AM 7TH GRADE SOCIAL STUDIES TEACHER Temperature 36.8 C (98.3 F) 09/20/2017 11:25 AM 7TH GRADE SOCIAL STUDIES TEACHER Respiratory Rate 18 09/20/2017 11:25 AM 7TH GRADE SOCIAL STUDIES TEACHER Oxygen Saturation 98% 09/20/2017 11:25 AM 7TH GRADE SOCIAL STUDIES TEACHER Inhaled Oxygen Concentration - - Weight 78.9 kg (174 lb) 09/20/2017 11:25 AM 7TH GRADE SOCIAL STUDIES TEACHER Height 154.9 cm (5' 1 ) 09/20/2017 11:25 AM 7TH GRADE SOCIAL STUDIES TEACHER Body Mass Index 32.88 09/20/2017 11:25 AM 7TH GRADE SOCIAL STUDIES TEACHER Procedures * XR KNEE BILAT 2VW OR LESS(Performed 09/20/2023) Performed for Seronegative rheumatoid arthritis of multiple sites (HCC) * XR CHEST 2VW(Performed 04/27/2020) Performed for Rheumatoid arthritis, involving unspecified site, unspecified rheumatoid factor presence * DEXA BONE DENSITY AXIAL SKELETON(Performed 04/27/2020) Performed for Anemia due to other cause, not classified * C-REACTIVE PROTEIN(Performed 04/14/2009) Performed for Rheumatoid Arthritis ([facility]) * CBC W AUTO DIFFERENTIAL(Performed 04/14/2009) Performed for Rheumatoid Arthritis ([facility]) * COMPREHENSIVE METABOLIC PANEL(Performed 04/14/2009) Performed for Rheumatoid Arthritis ([facility]) * CYCLIC CITRULLINATED PEPTIDE(CCP) AB IGG(Performed 01/27/2009) Performed for Rheumatoid Arthritis ([facility]) * COMPREHENSIVE METABOLIC PANEL(Performed 01/27/2009) Performed for Rheumatoid Arthritis (HCC) * CBC W AUTO DIFFERENTIAL(Performed 01/27/2009) Performed for Rheumatoid Arthritis (HCC) * C-REACTIVE PROTEIN(Performed 01/27/2009) Performed for Rheumatoid Arthritis (HCC) Results * XR KNEE BILAT ONE OR TWO VIEWS (09/20/2023 1:04 PM 7TH GRADE SOCIAL STUDIES TEACHER) Anatomical Region Laterality Modality Lower Extremity Radiographic Neida ging 09/20/2023 1:44 PM 7TH GRADE SOCIAL STUDIES TEACHER Narrative 09/20/2023 1:44 PM 7TH GRADE SOCIAL STUDIES TEACHER PROCEDURE(s): XR KNEE BILAT 2VW OR LESS DATE AND TIME OF EXAM(s): 09/20/2023 1:05 PM INDICATION(s): M06.09: Rheumatoid arthritis without rheumatoid factor, multiple sites (CMS-HCC). Bilateral knee pain. COMPARISON(s): None available. FINDINGS/IMPRESSION: No acute fracture or dislocation is seen. No significant osteoarthritic degenerative changes are seen. The soft tissues are grossly unremarkable. > Interpreting Provider: Adarsh Myers MD on 09/20/2023 1:44 PM Procedure Note Adarsh Myers MD - 09/20/2023 PROCEDURE(s): XR KNEE BILAT 2VW OR LESS DATE AND TIME OF EXAM(s): 09/20/2023 1:05 PM INDICATION(s): M06.09: Rheumatoid arthritis without rheumatoid factor, multiple sites (CMS-HCC). Bilateral knee pain. COMPARISON(s): None available. FINDINGS/IMPRESSION: No acute fracture or dislocation is seen. No significant osteoarthritic degenerative changes are seen. The soft tissues are grosslyunremarkable. > Interpreting Provider: dAarsh Myers MD on 09/20/2023 1:44 PM Saravanan Escobedo MD DIAGNOSTIC IMAGING O RDERABLES * XR CHEST 2VW (04/27/2020 11:26 AM CDT) Anatomical Region Laterality Modality Chest Radiographic Neida ging 04/27/2020 11:3 4 AM CDT Impressions 04/27/2020 11:38 AM CDT No acute pulmonary disease. *Reading Radiologist: Rc Rivera on 04/27/2020 at 11:38 AM Narrative 04/27/2020 11:38 AM CDT Chest 2 views INDICATION: Cough. Rheumatoid arthritis. FINDINGS: 2 views of the chest without prior for comparison shows no evidence of consolidation, pleural effusion or pneumothorax. No discrete mass or nodule is demonstrated. The heart size is normal. Procedure Note Rc Rivera MD - 04/27/2020 Chest 2 views INDICATION: Cough. Rheumatoid arthritis. FINDINGS: 2 views of the chest without prior for comparison shows no evidence of consolidation, pleural effusion or pneumothorax. No discrete mass or nodule is demonstrated. The heart size is normal. IMPRESSION No acute pulmonary disease. *Reading Radiologist: Rc Rivera on 04/27/2020 at 11:38 AM Saravanan Escobedo MD DIAGNOSTIC IMAGING O RDERABLES * DEXA BONE DENSITY AXIAL SKELETON (04/27/2020 11:26 AM CDT) Anatomical Region Laterality Modality Mammography 04/27/2020 11:4 3 AM CDT Narrative 04/27/2020 11:44 AM CDT BONE MINERAL DENSITY STUDY INDICATION: Ovarian failure FINDINGS: The average bone mineral density from L1 to L4 is 1.131 g/cm2. T-score is -0.4. Z-score is 0.0. The average bone mineral density of the totalneck mean hip is 0.852 g/cm2. T-score is -1.3. Z-score is -0.6. ASSESSMENT: The above findings represent no significant increased risk of fracture through the spine and mild increased risk of fracture through femur. WORLD HEALTH ORGANIZATION DEFINITIONS OSTEOPENIA = -1 TO -2.5 SD BELOW T-SCORE OSTEOPOROSIS = LESS THAN -2.5 SD BELOW T-SCORE *Reading Radiologist: Rc Rivera on 04/27/2020 at 11:44 AM Procedure Note Rc Rivera MD - 04/27/2020 BONE MINERAL DENSITY STUDY INDICATION: Ovarian failure FINDINGS: The average bone mineral density from L1 to L4 is 1.131 g/cm2. T-score is -0.4. Z-score is 0.0. The average bone mineral density of the totalneck mean hip is 0.852 g/cm2. T-score is -1.3. Z-score is -0.6. ASSESSMENT: The above findings represent no significant increased risk of fracture through the spine and mild increased risk of fracture through femur. WORLD HEALTH ORGANIZATION DEFINITIONS OSTEOPENIA = -1 TO -2.5 SD BELOW T-SCORE OSTEOPOROSIS = LESS THAN -2.5 SD BELOW T-SCORE *Reading Radiologist: Rc Rivera on 04/27/2020 at 11:44 AM Saravanan Escobedo MD DEXA ORDERABLES * C-REACTIVE PROTEIN (04/14/2009 10:01 AM CDT) Only the most recent of2 resultswithin the time period is included. C-Reactive Protein 1.2 0.0 - 4.9 mg/L [facility] ACCOUNT BILL BLOOD SPECIMEN / Unknown 04/14/2009 10:01 AM CDT 04/14/2009 6:43 PM CDT Narrative Resulting Agency Comment [facility] [address] [id number] Saravanan Escobedo MD LAB - CHEMISTRY [facility] Organization Address City/State/ZIP Co de Phone Number [facility] ACCOUNT BILL * CBC W AUTO DIFFERENTIAL (04/14/2009 10:01 AM CDT) Only the most recent of2 resultswithin the time period is included. WBC 6.2 4.0 - 10.5 x10E3/uL [facility] ACCOUNT BILL RBC 3.82 3.80 - 5.10 x10E6/uL [facility] ACCOUNT BILL Hemoglobin 11.6 11.5 - 15.0 g/dL [facility] ACCOUNT BILL Hematocrit 34.4 34.0 - 44.0 % [facility] ACCOUNT BILL MCV 90 80 - 98 fL [facility] ACCOUNT BILL MCH 30.4 27.0 - 34.0 pg [facility] ACCOUNT BILL MCHC 33.8 32.0 - 36.0 g/dL [facility] ACCOUNT BILL RDW 13.9 11.7 - 15.0 % [facility] ACCOUNT BILL Platelet Count 306 140 - 415 x10E3/uL [facility] ACCOUNT BILL Granulocytes % 57 40 - 74 % [facility] ACCOUNT BILL Lymphocytes % 35 14 - 46 % [facility] ACCOUNT BILL Monocytes % 6 4 - 13 % [facility] ACCOUNT BILL Eosinophils % 1 0 - 7 % [facility] ACCOUNT BILL Basophils % 1 0 - 3 % [facility] ACCOUNT BILL Granulocytes Absolute 3.5 1.8 - 7.8 x10E3/uL [facility] ACCOUNT BILL Lymphocytes Absolute 2.2 0.7 - 4.5 x10E3/uL [facility] ACCOUNT BILL Monocytes Absolute 0.4 0.1 - 1.0 x10E3/uL [facility] ACCOUNT BILL Eosinophils Absolute 0.1 0.0 - 0.4 x10E3/uL [facility] ACCOUNT BILL Basophils Absolute 0.1 0.0 - 0.2 x10E3/uL [facility] ACCOUNT BILL Comment Hematology NOT AVAIL. [facility] ACCOUNT BILL BLOOD SPECIMEN / Unknown 04/14/2009 10:01 AM CDT 04/14/2009 6:43 PM CDT Narrative [facility] ACCOUNT BILL - 04/15/2009 7:20 AM CDT Additional Result Information HEMATOLOGY COMMENTS: BLOOD,URINE ([facility]): RESULT NOT AVAILABLE Resulting Agency Comment [facility] [address] [id number] Saravanan Escobedo MD LAB - HEMATOLOGY ORD ERABLES [facility] ACCOUNT BILL * COMPREHENSIVE METABOLIC PANEL (04/14/2009 10:01 AM CDT) Only the most recent of2 resultswithin the time period is included. Glucose 78 65 - 99 mg/dL [facility] [...] PM CDT Narrative Resulting Agency Comment [facility] [address] [id number] Saravanan Escobedo MD LAB - CHEMISTRY [facility] Organization Address City/State/ZIP Co de Phone Number [facility] ACCOUNT BILL * XR HANDS BILAT SINGLE VIEW (01/27/2009 6:21 PM CDT) Saravanan Escobedo MD DIAGNOSTIC IMAGING O RDERABLES * CYCLIC CITRUL PEPTIDE ANTIBODY IGG ([facility]) (01/27/2009 2:21 PM CDT) CCP Antibody IgG 1 0 - 5 U/mL [facility] INSURANCE BILL Comment: Negative: 0 - 5 Positive: >5 BLOOD SPECIMEN / Unknown 01/27/2009 2:21 PM CDT 01/27/2009 9:16 PM CDT Narrative Resulting Agency Comment [facility] [address] [id number] Saravanan Escobedo MD LAB - CHEMISTRY [facility] INSURANCE BILL Care Teams Training Specialist Relationship Specialty Start Date End Date Ken Best MD PCP - General 01/06/09
--- OUTSIDE RECORDS SUMMARY | 2024-11-18 10:38 | XMS_ITS | Clinical Summary ---
Author Organization [facility] Address [address] [place] [address] Care Team Providers Care Transporter Driver Name Role Phone Ken Best MD Primary Care Provider [phone] Source Comments [facility],non-owned Affiliates and Associated Physician Practices is amultiple site organization consisting of ambulatory clinics and hospital sitesin [place], [place], [place] and [place]. This disclosure is being madepursuant to the Care Everywhere program and may not contain all information available regarding this patient. Last updated 18.[facility] Allergies No known active allergies Medications * [...] 50 MG tabletIndications:R heumatoid arthritis(714.0) ([facility]) Take 1 Tab by mouth 3 times daily. Take one or two pills with over the counter Tylenol for daily pain flare ups 270 3 04/14/2009 Active Methotrexate (Anti-Rheumatic) 2.5 MG TABSIndications:Rhe umatoid arthritis(714.0) ([facility]) Take 6 Tabs by mouth every 7 days before meal. 72 3 04/14/2009 Active meloxicam (MOBIC) 7.5 MG tabletIndications:R heumatoid arthritis(714.0) ([facility]) Take 1 Tab by mouth [...] Comments Blood Pressure 116/64 09/20/2017 11:25 AM ADJUSTER ELECTRICAL CONTACTS Pulse 101 09/20/2017 11:25 AM ADJUSTER ELECTRICAL CONTACTS Temperature 36.8 C (98.3 F) 09/20/2017 11:25 AM ADJUSTER ELECTRICAL CONTACTS Respiratory Rate 18 09/20/2017 11:25 AM ADJUSTER ELECTRICAL CONTACTS Oxygen Saturation 98% 09/20/2017 11:25 AM ADJUSTER ELECTRICAL CONTACTS Inhaled Oxygen Concentration - - Weight 78.9 kg (174 lb) 09/20/2017 11:25 AM ADJUSTER ELECTRICAL CONTACTS Height 154.9 cm (5' 1 ) 09/20/2017 11:25 AM ADJUSTER ELECTRICAL CONTACTS Body Mass Index 32.88 09/20/2017 11:25 AM ADJUSTER ELECTRICAL CONTACTS Plan of Treatment Health Maintenance Due Date Last Done Comments COLOGUARD (AGES 45-75) - COL ON CA SCREENING 1964 COLON MONITORING 1964 COLONOSCOPY - COLON CA SCREENING 1964 CT COLONOGRAPHY - COLON CA SCREENING 1964 Colorectal Cancer Screening 1964 FIT - COLON CA SCREENING 1964 FLEX SIG - COLON CA SCREENING 1964 LIPID TESTING 1964 MAMMOGRAM 1964 HIV SCREENING 12/01/1979 HEPATITIS C SCREENING 11/26/1982 DTAP/TDAP/TD VACCINES (1 - Tdap) 12/01/1983 HEPATITIS B VACCINE (1 of 3 - 19+ 3-dose series) 12/01/1983 PNEUMOCOCCAL VACCINE 50+ (1 of 1 - PCV) 2014 ZOSTER VACCINE (1 of 2) 2014 SCREENING FOR DIABETES 09/20/2017 9, 01/27/2009 COVID-19 VACCINE (2023-2 5 season) 2024 INFLUENZA VACCINE (#1) 2024 7, 07/05/2016 DEPRESSION SCREENING 09/30/2024 HIB VACCINE Aged Out No longer eligi ble based on patient's age to complete this topic HPV VACCINE Aged Out No longer eligi ble based on patient's age to complete this topic MENINGOCOCCAL (Group B) VACCINE Aged Out No longer eligible b ased on patient's age to complete this topic MENINGOCOCCAL VACCINE Aged Out No eden paty eligible based on patient's age to complete this topic PNEUMOCOCCAL VACCINE Aged Out No long er eligible based on patient's age to complete this topic Procedures Procedure Name Priority Date/Time Associated Diagnosis [...] PM CDT Narrative Resulting Agency Comment [facility] [address] [id number] Saravanan Escobedo MD LAB - CHEMISTRY [facility] Organization Address City/State/ZIP Co de Phone Number [facility] ACCOUNT BILL from Last 3 Months or Most Recently Relevant to Health Maintenance Care Teams Transporter Driver Relationship Specialty Start Date End Date Ken Best MD PCP - General 01/06/09
--- OUTSIDE RECORDS SUMMARY | 2024-11-18 10:38 | XMS_ITS | Continuity of Care Document ---
Author Organization [facility] Address [address] [place] [address] Phone Care Team Providers Care Vat House Supervisor Name Role Phone Wagner ROBERTSMicha Unavailable Unavailable Advance Directives Directive Yes / No Effective Date File Name No Information Encounters Encounter Description Practice Location Reason(s) For Visit Diagnoses Date Provider Providers Copied on Encounter [facility], [address], [place], [place], [id number], [place] tel:[phone] [facility] No Information Wagner Louis. [address], [place], [address], [place]. tel: [phone] Family History Family Member Type Diagnosis Age At Onset No Information Payers Payer name Insurance type Covered green party ID Authoriza tion(s) No Information Social [...]
== END 2024-11-18 10:26 | disposition home or self-care (01) ==
LOC: ANHIMG 10:27
PROVIDERS: PCP Family Medicine; Visit Provider Obstetrics & Gynecology
DX: N63.42 Unspecified lump in left breast, subareolar (principal)
CPT/HCPCS: 76642; 77061; 77065; G0279

== ENCOUNTER 2025-04-28 10:06 | Outpatient (CLI) | payer OTHER, SELFPAY ==
--- OUTSIDE RECORDS SUMMARY | 2025-04-28 10:36 | XMS_ITS | Clinical Summary ---
Author Organization [facility] Address [address] [facility] [address] [place] [address] Care Team Providers Care Community Organization Worker Name Role Phone Ken Best MD Primary Care Provider [phone] Benoit Jackson MD Unavailable [phone] Allergies Active Allergy Reactions Criticality Noted Date [...] Active Active Problems No known active problems Surgical History Surgery Date Site/Laterality Comments IR [...] on file Legal Sex Female 12:37 AM CONFIDENTIAL INVESTIGATOR Gender Identity Not on file Sexual Orientation Not on file Obstetrics History Last Filed Vital Signs Vital Sign Reading Time Taken Comments Blood Pressure 124/71 08/09/2021 2:53 PM CONFIDENTIAL INVESTIGATOR Pulse 77 08/09/2021 2:53 PM CONFIDENTIAL INVESTIGATOR Temperature - - Respiratory Rate 18 08/09/2021 2:53 PM CONFIDENTIAL INVESTIGATOR Oxygen Saturation 98% 08/09/2021 2:53 PM CONFIDENTIAL INVESTIGATOR Inhaled Oxygen Concentration - - Weight 75.8 kg (167 lb) 03/31/2018 11:12 AM CDT Height 154.9 cm (5' 1) 03/31/2018 11:12 AM CDT Body Mass Index 31.55 03/31/2018 11:12 AM CDT Plan of Treatment Health Maintenance Due Date Last Done Comments Cervical Cancer Screening 1964 Colon Cancer Screening-Colonoscopy 1964 Depression Screening 1964 Hepatitis C Screening 1964 DTaP/Tdap/Td Vaccine (1 - Tdap) 12/01/1975 Hepatitis B Screening 1982 Regular Well Visit/Exam 18-64 1982 Pneumococcal vaccine <65 (2 of 2 - PPSV23) 06/12/2019 04/17/2019 Covid-19 Vaccine (3 - Modern a risk series) 12/10/2020 11/12/2020, 10/15/2020 Breast Cancer Screening-Mammogram 03/09/2025 024 Influenza Vaccine (#1) 2025 9, 07/08/2018, 07/08/2017, Additional history exists Zoster Vaccine Completed 06/24/2019, 04/17/2019 Medical Devices Implanted Type Area Calender Supervisor Device Identifier Shelf Expiration Date Model / Serial / Lot Cerevo Eviva 13cm Identifier Biopsy Site [id number] - [id number] Implanted:Qty: 1 on 03/07/2023 by Dara Valera MD at [facility] Left: Breast [employer] [id number] [facility]/20[facility] / [id number] Procedures Procedure Name Priority Date/Time Associated Diagnosis [...] to a prior imaging study performed at [facility] on 10/31/2011. There are scattered areas of [...] to a prior imaging study performed at [facility] on 10/31/2011. There are scattered areas of fibroglandular density. There is no suspicious abnormality in either breast. Impression: There is no mammographic evidence of malignancy. Annual screening mammography is recommended. OVERALL FINAL ASSESSMENT: BI-RADS CATEGORY 1: Negative. us Self Screening Mammogram IMG MAMMO PROCEDURES Fi nal Result from Last 3 Months or Most Recently Relevant to Health Maintenance Insurance [facility] CHOICE PLUS [facility] CHOICE PLUS COMMERCIAL GENERIC * Guarantor: [employer]LE[employer] [id number] Account Type Relation to Patient Date of Phone Billing Address Workers Comp Employer Care Teams Community Organization Worker Relationship Specialty Start Date End Date Ken Best MD [address] [address] PCP - General 09/18/17 Benoit Jackson MD [address] [address] Referring Physician Obstetrics and Gynecology 02/14/23
--- OUTSIDE RECORDS SUMMARY | 2025-04-28 10:36 | XMS_ITS | Encounter Summary ---
Author Organization [facility] Address [address] [place] [address] Care Team Providers Care Church Communications Administrator Name Role Phone Ken Best MD Primary Care Provider [phone] Reason for Visit * Diagnostic Imaging (Routine) - Closed Specialty Diagnoses / Procedures Referred By Contac t Referred To Contact Procedures Breast Imaging Screening Outside Reference Cezar Hull NP Phone: tel: fax: Referral ID Status Reason Start Date Expiration Date Visits Re quested Visits Authorized [id number] Closed 03/01/2023 03/30/2024 1 1 Encounter Details Date Type Department Care Team (Late st Contact Info) Description 11/03/2019 Hospital Encounter [facility] [address] [place] [phone] Social History Tobacco Use Types Packs/Day Years Used Date Smoking Tobacco: Never Smokeless Tobacco: Never Alcohol Use Standard Drinks/Week Comments Yes 0 (1 standard drink = 0.6 oz pur e alcohol) Comments Unknown Sex and Gender Information Value Date Recorded Sex Assigned at Not on file Legal Sex Female 12:37 AM INDUSTRIAL SPECIALIST Gender Identity Not on file Sexual Orientation Not on file documented as of this encounter Plan of Treatment Not on file documented as of this encounter Procedures Procedure Name Priority Date/Time Associated Diagnosis Comments BREAST IMAGING MG SCREENING OUTSIDE REFERENCE Routine 11/03/2019 12:00 AM INDUSTRIAL SPECIALIST documented in this encounter Results * Breast Imaging Screening Outside Reference (11/03/2019 12:00 AM INDUSTRIAL SPECIALIST) Impressions [facility] - 03/01/2023 8:38 AM CDT These images are for Reference purposes only and have not been reviewed by [facility]. There will be no report generated by a [facility]. Narrative [facility] - 03/01/2023 8:38 AM CDT EXAMINATION: Images For Reference Purposes Only us Cezar Hull AX SURVEY WORKER IMG MAMMO PROCEDURES Final Result [facility] documented in this encounter Visit Diagnoses Not on filedocumented in this encounter Care Teams [employer] Administrator Relationship Specialty Start Date End Date Ken Best MD [address] [address] PCP - General 09/18/17 documented as of this encounter
--- OUTSIDE RECORDS SUMMARY | 2025-04-28 10:36 | XMS_ITS | Referral Summary ---
Author Organization [facility] Address [facility] [place] [address] Care Team Providers Care Wood Die Maker Name Role Phone Ken Best MD Primary Care Provider [phone] Benoit [place] MD Unavailable [phone] Allergies Active Allergy Reactions Criticality Noted Date [...] on file Legal Sex Female 12:37 AM BUTTON AND BUCKLE MAKER Gender Identity Not on file Sexual Orientation Not on file Last Filed Vital Signs Vital Sign Reading Time Taken Comments Blood Pressure 124/71 08/09/2021 2:53 PM BUTTON AND BUCKLE MAKER Pulse 77 08/09/2021 2:53 PM BUTTON AND BUCKLE MAKER Temperature - - Respiratory Rate 18 08/09/2021 2:53 PM BUTTON AND BUCKLE MAKER Oxygen Saturation 98% 08/09/2021 2:53 PM BUTTON AND BUCKLE MAKER Inhaled Oxygen Concentration - - Weight 75.8 kg (167 lb) 03/31/2018 11:12 AM CDT Height 154.9 cm (5' 1) 03/31/2018 11:12 AM CDT Body Mass Index 31.55 03/31/2018 11:12 AM CDT Plan of Treatment Not on file Medical Devices Implanted Type Area Cable Braider Device Identifier Shelf Expiration Date Model / Serial / Lot [employer] Robyniva 13cm Identifier Biopsy Site [id number] - [id number] Implanted:Qty: 1 on 03/07/2023 by Dara Valera MD at [facility] Left: Breast [employer] [id number] 08/22/2023 [facility] / / [id number] Procedures Procedure Name Priority Date/Time Associated Diagnosis [...] to a prior imaging study performed at [facility] on 10/31/2011. There are scattered areas [...] to a prior imaging study performed at [facility] on 10/31/2011. There are scattered areas of fibroglandular density. There is no suspicious abnormality in either breast. Impression: There is no mammographic evidence of malignancy. Annual screening mammography is recommended. OVERALL FINAL ASSESSMENT: BI-RADS CATEGORY 1: Negative. us Self Screening Mammogram IMG MAMMO PROCEDURES Fi nal Result from Last 3 Months or Most Recently Relevant to Health Maintenance Insurance [facility] CHOICE PLUS [facility] CHOICE PLUS COMMERCIAL GENERIC * Guarantor: ELENA [id number] Account Type Relation to Patient Date of Phone Billing Address Workers Comp Employer Care Teams Wood Die Maker Relationship Specialty Start Date End Date Ken Best MD [address] [address] PCP - General 09/18/17 Benoit [place] MD [address] [address] Referring Physician Obstetrics and Gynecology 02/14/23
--- OUTSIDE RECORDS SUMMARY | 2025-04-28 10:36 | XMS_ITS | Continuity of Care Document ---
Author Organization [facility] Address [address] [place] [address] Phone Care Team Providers Care Heat Treat Furnace Operator Name Role Phone Wagner ROBERTSMicha Unavailable Unavailable Advance Directives Directive Yes / No Effective Date File Name No Information Encounters Encounter Description Practice Location Reason(s) For Visit Diagnoses Date Provider Providers Copied on Encounter [facility], [address], [place], [place], [id number], [place] tel:[phone] [facility] [place] No Information Wagner Louis. [address] [facility], [place], [address], [place]. tel: [phone] Family History Family Member Type Diagnosis Age [...]
--- OUTSIDE RECORDS SUMMARY | 2025-04-28 10:36 | XMS_ITS | Clinical Summary ---
Author Organization [facility] Address [address] [place] [address] Care Team Providers Care Informatics Spec Name Role Phone Ken Best MD Primary Care Provider [phone] Source Comments [facility],non-owned Affiliates and Associated Physician Practices is amultiple site organization consisting of ambulatory clinics and hospital sitesin [place], [place], [place] and [place]. This disclosure is being madepursuant to the Care Everywhere program and may not contain all information available regarding this patient. Last updated 18.[facility] Allergies No known active allergies Medications * Be aware that medications may not be up to date on this document. Alwaysverify current medications with the patient. EFFEXOR XR 150 MG CP24 Take 150 mg by mouth daily with breakfast. Active VESICARE 5 MG TABS Take 5 mg by mouth daily. Active Omeprazole 20 MG TBEC Take by mouth. Activ e Vitamin B-12 1000 MCG/ML SOLN by Injection route. Once monthly Active tramadol (ULTRAM) 50 MG tabletIndicatio ns:Rheumatoid arthritis(714.0 ) ([facility]) Take 1 Tab by mouth 3 times daily. Take one or two pills with over the counter Tylenol for daily pain flare ups 270 3 9 Active Methotrexate (Anti-Rheumatic ) 2.5 MG TABSIndications :Rheumatoid arthritis(714.0 ) ([facility]) Take 6 Tabs by mouth every 7 days before meal. 72 3 9 Active meloxicam (MOBIC) 7.5 MG tabletIndicatio ns:Rheumatoid arthritis(714.0 ) ([facility]) Take 1 Tab by mouth daily. One pill daily for 5-7a days to treat flare ups of pain and inflammation 90 3 9 Active Active Problems Problem Noted Date Diagnosed Date Low back pain 04/14/2009 Insomnia 01/27/2009 Fibromyalgia 01/27/2009 PPD negative 01/27/1999 Overview (01/27/2009): 01/27/2009 PPD today Rheumatoid arthritis 04/14/1994 Overview (08/07/2015): Long standing nodules on feet levated RF and no erosions on Xray, Multiple biopsies of foot nodules showing Rheumatoid nodules. 01/27/2009 long standing diagnosis SSZ/ diclofenac. Immunizations Immunization Administration Dates Next Due FLU VACCINE QUAD IIV4 PF ID 07/05/2016 INFLUENZA VACCINE, QUADR. 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 Not on file Not on file Not on file Last Filed Vital Signs Vital Sign Reading Time Taken Comments Blood Pressure 116/64 09/20/2017 11:25 AM HORSE AND WAGON DRIVER Pulse 101 09/20/2017 11:25 AM HORSE AND WAGON DRIVER Temperature 36.8 C (98.3 F) 09/20/2017 11:25 AM HORSE AND WAGON DRIVER Respiratory Rate 18 09/20/2017 11:25 AM HORSE AND WAGON DRIVER Oxygen Saturation 98% 09/20/2017 11:25 AM HORSE AND WAGON DRIVER Inhaled Oxygen Concentration - - Weight 78.9 kg (174 lb) 09/20/2017 11:25 AM HORSE AND WAGON DRIVER Height 154.9 cm (5' 1) 09/20/2017 11:25 AM HORSE AND WAGON DRIVER Body Mass Index 32.88 09/20/2017 11:25 AM HORSE AND WAGON DRIVER Plan of Treatment Health Maintenance Due Date Last Done Comments COLOGUARD (AGES 45-75) - COLON CA SCREENING 1964 COLON MONITORING 1964 COLONOSCOPY - COLON CA SCREENING 1964 CT COLONOGRAPHY - COLON CA SCREENING 1964 Colorectal Cancer Screening 1964 FIT - COLON CA SCREENING 1964 FLEX SIG - COLON CA SCREENING 1964 LIPID TESTING 1964 MAMMOGRAM 1964 HIV SCREENING 12/01/1979 HEPATITIS C SCREENING 11/26/1982 DTAP/TDAP/TD VACCINES (1 - Tdap) 12/01/1983 PNEUMOCOCCAL VACCINE 50+ (1 of 1 - PCV) 2014 ZOSTER VACCINE (1 of 2) 2014 COVID-19 VACCINE (1 - 2023-) 05/31/2024 SCREENING FOR DIABETES 07/27/2024 , 07/27/2021, 04/14/2009, Additional history exists DEPRESSION SCREENING 09/30/2024 INFLUENZA VACCINE (#1) 2025 07/08/2017, 2015 Respiratory Syncytial Virus (RSV) Vaccine Pt: or over 60 yrs (1 - 1-dose 75+ series) 12/01/2039 HEPATITIS B VACCINE Aged Out No longe r eligible based on patient's age to complete this topic HIB VACCINE Aged Out No longer eligi ble based on patient's age to complete this topic HPV VACCINE Aged Out No longer eligi ble based on patient's age to complete this topic MENINGOCOCCAL (Group B) VACCINE SHARED DECISION-MAKING Aged Out No longer eligible based on patient's age to complete this topic MENINGOCOCCAL GROUPS A/C/Y/W VACCINE Aged Out No longer eligible based on patient's age to complete this topic Procedures Procedure Name Priority Date/Time Associated Diagnosis Comments COMPREHENSIVE METABOLIC PANEL Routine 04/14/2009 10:01 AM CDT Rheumatoid Arthritis from Last 3 Months or Most Recently [...] PM CDT Narrative Resulting Agency Comment [facility] [address] [facility] [id number] Saravanan Escobedo MD LAB - CHEMISTRY ORDERABLES Nereyda pham Result [facility] ACCOUNT BILL [address] [place] [address] from Last 3 Months or Most Recently Relevant to Health Maintenance Insurance [facility] Care Teams Informatics Spec Relationship Specialty Start Date End Date Ken Best MD PCP - General 01/06/09
--- OUTSIDE RECORDS SUMMARY | 2025-04-28 10:36 | XMS_ITS | Clinical Summary ---
Author Organization [facility] Address [address] [place] [address] Care Team Providers Care Aeronautical Engineering Teacher Name Role Phone Ken Best MD Primary Care Provider [phone] Allergies Active Allergy Reactions Criticality Noted Date [...] 4:30 PM CDT Height 154.9 cm (5' 1) 05/12/2020 4:30 PM CDT Body Mass Index [...] wi th HPV 1994 Mammogram Screening 2004 Pneumococcal Vaccine: 50+ Years (2 of 2 - PPSV23) 04/17/2020 04/17/2019 COVID-19 Vaccine ( - 2023-2 5 season) 2024 RSV Immunization or 60+ Years (1 - 1-dose 75+ series) 12/01/2039 Zoster Vaccines Completed 06/24/2019, 04/17/2019 Meningococcal B Vaccine Aged Out No l onger eligible based on patient's age to complete this topic Meningococcal Vaccine Aged Out No eden paty eligible based on patient's age to complete this topic RSV Immunizations Under 20 Months Aged Out No longer eligible b ased on patient's age to complete this topic Insurance [facility] Care Teams Aeronautical Engineering Teacher Relationship Specialty Start Date End Date Ken Best MD [address] [place] [address] [address] [place] [address] PCP - General FAMILY PRACTICE 02/16/20
--- OUTSIDE RECORDS SUMMARY | 2025-04-28 10:36 | XMS_ITS | Encounter Summary ---
Author Organization [facility] Healthcare Address [address] [place] [address] Care Team Providers Care Final Finisher Name Role Phone Ken Best MD Primary Care Provider [phone] Reason for Visit * Diagnostic Imaging (Routine) - Closed Specialty Diagnoses / Procedures Referred By Contac t Referred To Contact Procedures Breast Imaging Screening Outside Reference Cezar Hull NP Phone: tel: fax: Referral ID Status Reason Start Date Expiration Date Visits Re quested Visits Authorized [id number] Closed 03/01/2023 03/30/2024 1 1 Encounter Details Date Type Department Care Team (Late st Contact Info) Description 09/29/2018 Hospital Encounter [facility] [place], [place] [id number] Social History Tobacco Use Types Packs/Day Years Used Date Smoking Tobacco: Never Smokeless Tobacco: Never Alcohol Use Standard Drinks/Week Comments Yes 0 (1 standard drink = 0.6 oz pur e alcohol) Comments Unknown Sex and Gender Information Value Date Recorded Sex Assigned at Not on file Legal Sex Female 12:37 AM BEAR KEEPER Gender Identity Not on file Sexual Orientation Not on file documented as of this encounter Plan of Treatment Not on file documented as of this encounter Procedures Procedure Name Priority Date/Time Associated Diagnosis Comments BREAST IMAGING MG SCREENING OUTSIDE REFERENCE Routine 09/29/2018 12:00 AM BEAR KEEPER documented in this encounter Results * Breast Imaging Screening Outside Reference (09/29/2018 12:00 AM BEAR KEEPER) Impressions [facility] - 03/01/2023 8:39 AM CDT These images are for Reference purposes only and have not been reviewed by [facility] Radiology. There will be no report generated by a [facility] Radiologist. Narrative [facility] - 03/01/2023 8:39 AM CDT EXAMINATION: Images For Reference Purposes Only us Cezar Hull RING SPINNER IMG MAMMO PROCEDURES Final Result [facility] documented in this encounter Visit Diagnoses Not on filedocumented in this encounter Care Teams Final Finisher Relationship Specialty Start Date End Date Ken Best MD [address] [address] PCP - General 09/18/17 documented as of this encounter
--- OUTSIDE RECORDS SUMMARY | 2025-04-28 10:36 | XMS_ITS | Encounter Summary ---
Author Organization [facility] Healthcare Address [address] [place] [address] Care Team Providers Care Tin Container Straightener Name Role Phone Ken Best MD Primary Care Provider [phone] Reason for Visit * Diagnostic Imaging (Routine) - Closed Specialty Diagnoses / Procedures Referred By Contac t Referred To Contact Procedures Breast Imaging Screening Outside Reference Cezar Hull NP Phone: tel: fax: Referral ID Status Reason Start Date Expiration Date Visits Re quested Visits Authorized [id number] Closed 03/01/2023 03/30/2024 1 1 Encounter Details Date Type Department Care Team (Late st Contact Info) Description 09/25/2017 Hospital Encounter [facility]iology [facility] [place], [place] [id number] Social History Tobacco Use Types Packs/Day Years Used Date Smoking Tobacco: Never Smokeless Tobacco: Never Alcohol Use Standard Drinks/Week Comments Yes 0 (1 standard drink = 0.6 oz pur e alcohol) Comments Unknown Sex and Gender Information Value Date Recorded Sex Assigned at Not on file Legal Sex Female 12:37 AM CLOTH DRIER Gender Identity Not on file Sexual Orientation Not on file documented as of this encounter Plan of Treatment Not on file documented as of this encounter Procedures Procedure Name Priority Date/Time Associated Diagnosis Comments BREAST IMAGING MG SCREENING OUTSIDE REFERENCE Routine 09/25/2017 12:00 AM CLOTH DRIER documented in this encounter Results * Breast Imaging Screening Outside Reference (09/25/2017 12:00 AM CLOTH DRIER) Impressions [facility] - 03/01/2023 8:40 AM CDT These images are for Reference purposes only and have not been reviewed by [facility] Radiology. There will be no report generated by a [facility] Radiologist. Narrative [facility] - 03/01/2023 8:40 AM CDT EXAMINATION: Images For Reference Purposes Only Cezar Hull WRAPPER CASER IMG MAMMO PROCEDURES Final Result [facility] documented in this encounter Visit Diagnoses Not on filedocumented in this encounter Care Teams Tin Container Straightener Relationship Specialty Start Date End Date Ken Best MD [address] [address] PCP - General 09/18/17 documented as of this encounter
--- OUTSIDE RECORDS SUMMARY | 2025-04-28 10:36 | XMS_ITS | Encounter Summary ---
Author Organization [facility] Healthcare Address [address] [place] [address] Care Team Providers Care Line And Frame Poler Name Role Phone Ken Best MD Primary Care Provider [phone] Reason for Visit * Diagnostic Imaging (Routine) - Closed Specialty Diagnoses / Procedures Referred By Contac t Referred To Contact Procedures Breast Imaging Screening Outside Reference Cezar Hull NP Phone: tel: fax: Referral ID Status Reason Start Date Expiration Date Visits Re quested Visits Authorized [id number] Closed 03/01/2023 03/30/2024 1 1 Encounter Details Date Type Department Care Team (Late st Contact Info) Description 11/08/2020 Hospital Encounter [facility]iology [facility] [address] [place] [id number] Social History Tobacco Use Types Packs/Day Years Used Date Smoking Tobacco: Never Smokeless Tobacco: Never Alcohol Use Standard Drinks/Week Comments Yes 0 (1 standard drink = 0.6 oz pur e alcohol) Comments Unknown Sex and Gender Information Value Date Recorded Sex Assigned at Not on file Legal Sex Female 12:37 AM MOUNTER SOUSAPHONES Gender Identity Not on file Sexual Orientation Not on file documented as of this encounter Plan of Treatment Not on file documented as of this encounter Procedures Procedure Name Priority Date/Time Associated Diagnosis Comments BREAST IMAGING MG SCREENING OUTSIDE REFERENCE Routine 11/08/2020 12:00 AM MOUNTER SOUSAPHONES documented in this encounter Results * Breast Imaging Screening Outside Reference (11/08/2020 12:00 AM MOUNTER SOUSAPHONES) Impressions [facility] - 03/01/2023 8:38 AM CDT These images are for Reference purposes only and have not been reviewed by [facility] Radiology. There will be no report generated by a [facility] Radiologist. Narrative [facility] - 03/01/2023 8:38 AM CDT EXAMINATION: Images For Reference Purposes Only us Cezar Hull NP IMG MAMMO PROCEDURES Final Result [facility] documented in this encounter Visit Diagnoses Not on filedocumented in this encounter Care Teams Line And Frame Poler Relationship Specialty Start Date End Date Ken Best MD [address] [address] PCP - General 09/18/17 documented as of this encounter
[2025-04-28 20:05] LABS: Hematocrit 37.5 % (37.0-47.0); Hemoglobin 12.0 g/dL (12.0-15.0); Mean Corpuscular HGB Conc 32.0 g/dl (32-36); Mean Corpuscular Hemoglobin 30.5 pg (26-34); Mean Corpuscular Volume 95.4 fl (80-100); Platelet Count Result 313 k/mm3 (150-375); Red Blood Count 3.93 M/mm3 (4.2-5.4); White Blood Count 4.7 K/mm3 (4.5-10.0)
[2025-04-28 20:13] LABS: Alanine Aminotransferase 30 U/L (6-35); Albumin Level 4.2 g/dL (3.5-5.1); Alkaline Phosphatase 76 U/L (38-126); Anion Gap 9 mmol/L (4-12); Aspartate Amino Transferase 71 U/L (14-36); Bilirubin,Total 0.4 mg/dL (0.2-1.3); Blood Urea Nitrogen 17 mg/dL (7-17); Calcium 9.1 mg/dL (8.4-10.2); Carbon Dioxide 25 mmol/L (22-30); Chloride 103 mmol/L (98-107); Cholesterol 260 mg/dL (0-200); Estimated Glomerular Filt Rate > 60; Glucose 87 mg/dL (65-110); HDL Direct 48 mg/dL; Potassium 4.3 mmol/L (3.4-5.0); Sodium 137 mmol/L (137-145); Total Protein 7.5 g/dL (6.3-8.2); Triglycerides 293 mg/dL (<150)
[2025-04-28 20:32] LABS: MALB Creatinine Ratio 7.7 mg/g (0-30)
[2025-04-28 20:49] LABS: Hemoglobin A1C 5.3 % (<5.7); Thyroid Stimulating Hormone 0.880 uIU/mL (0.465-4.680)
== END 2025-04-28 10:07 | disposition home or self-care (01) ==
LOC: ANHBWCLAB 10:12
PROVIDERS: PCP Nurse Practitioner Adult Health; Visit Provider Nurse Practitioner Adult Health
DX: M25.562 Pain in left knee (principal); Z00.00 Encounter for general adult medical examination without abnormal findings; E11.9 Type 2 diabetes mellitus without complications
CPT/HCPCS: 36415; 73562; 80053; 80061; 82043; 82565; 83036; 84443; 85027

== ENCOUNTER 2025-04-29 14:52 | Outpatient (RCR) | payer OTHER, SELFPAY ==
--- NOTE | 2025-04-29 16:00 | OPREHPOC ---
Outpatient Therapy Plan of Care This is a Multidisciplinary Plan of Care that may contain components documented by all disciplines (PT, OT, and ST.) PT Problem 1 PT Problem #1 Knowledge Deficit PT Goal 1 Goal / Goal Update Independent and compliant with HEP. Target Visit 2 PT Problem 2 PT Problem #2 Impaired Strength PT Goal 1 Goal / Goal Update Pt to improve gross LE strength to 5/5 bilaterally . Target Visit 12 PT Problem 3 PT Problem #3 Impaired Range of Motion PT Goal 1 Goal / Goal Update Pt to improve L knee flexion AROM to 140 deg without pain. Target Visit 12 PT Problem 4 PT Problem #4 Impaired Functional Mobility PT Goal 1 Goal / Goal Update Pt to report 20% reduction in perceived disability on LEFS. Target Visit 12
--- NOTE | 2025-04-29 16:00 | PTOPEVAL1 ---
Assessment and note entered by Xenia Wagoner, PT Evaluation Information Assessment Status Evaluation ICD-10 Condition Codes (PT) Pain in left knee M25.562 Onset 03/31/25 Subjective Information Pt reports she's had knee pain on and off for a while, however on 03/31/25 she heard a pop in her knee. She states she was standing still when her knee popped but she may have twisted while she was standing, and after the pop her knee pain became severe. She enters the clinic wearing a knee brace and reports she's been wearing it to feel more stable as her knee feels like it pushes back, almost like her knee wants to hyperextend. She also reports feeling like her knee wants to give out when she walks. She got an x-ray of her knee yesterday but has not heard about the results yet, and states her primary care physician also referred her to an orthopedic surgeon for further evaluation for possible meniscus tear. Pt reports she does have rheumatoid arthritis and her primary also thinks she might have a condition that makes her prone to muscle tears and tendon injuries. Pt reports she has torn her groin, hamstring, rotator cuff, bicep and tricep muscle before so she's not surprised that her doctor thinks she might have a meniscus tear. Pt has been icing and elevating her knee at night and also notes pain is worst at night and gets up to 8/10. Reported Pain Level Pain Score 2: Self Report Assessment PT Clinical Summary Mrs. Lennon is a 59 yo female presenting to skilled PT evaluation for L knee pain after hearing a pop while standing. She demonstrates medial knee pain along the joint line with tenderness to palpation and reproduction of pain with Antonia's test, indicating possible meniscal pathology. She also demonstrates moderate deficits in bilateral hip and L knee strength. She will benefit from skilled PT intervention to reduce pain, improve strength and mobility/stability of the knee joint. Plan of Care Interventions Electrical Stimulation,Gait Training,Hot Pack/Cold Pack,Manual Therapy,Neuro Re-education,Patient/ Caregiver Education,Therapeutic Activities, Therapeutic Exercise,Self-Care/Home Management PT Services Indicated Yes Treatment Frequency and 3x/week for 12 visits Duration These treatments will address the objective and functional deficits as defined above. The patient will be advanced safely and appropriately in order for the patient to progress towards his/her prior level of function. Additional exercises will be introduced and as well as a comprehensive home exercise program upon discharge, if needed, ?to ensure carryover of functional gains achieved in the clinic. This treatment plan has been reviewed and agreement upon by the patient.
--- NOTE | 2025-05-14 12:06 | PCPTNOTE ---
Cancelled session. Reports it is her first week back to school and she is in a lot of pain.
== END 2025-07-28 23:59 | disposition home or self-care (01) ==
LOC: CHSPT 14:52
PROVIDERS: Visit Provider Nurse Practitioner Adult Health
DX: M25.562 Pain in left knee (principal)
CPT/HCPCS: 97014; 97110; 97112; 97140; 97161; 97530; G0283

== ENCOUNTER 2025-04-30 13:54 | Outpatient (CLI) | payer OTHER, SELFPAY ==
--- NOTE | ~2025-04-30 | MM_ITS ---
EXAMINATION: MM screening isrrael BI w tarsha HISTORY: Screening TECHNIQUE: Craniocaudal and mediolateral oblique 3-D tomosynthesis images were obtained and synthetic 2-D images were generated. CAD analysis was submitted and interpreted. COMPARISON: Comparison to multiple prior studies sequentially, with oldest reviewed study dated 05/2021. BREAST PARENCHYMAL COMPOSITION: Not dense: There are scattered areas of fibroglandular density. FINDINGS: There is no evidence of suspicious mass, calcification, or architectural distortion to sugg est malignancy in either breast. There has been no suspicious interval change. IMPRESSION: 1. No mammographic evidence of malignancy. 2. Recommend routine screening mammography in one year. BI-RADS Category 1: Negative Reviewed, dictated and finalized at location B.
--- OUTSIDE RECORDS SUMMARY | 2025-04-30 13:59 | XMS_ITS | Encounter Summary ---
Author Organization [facility] Healthcare Address [address] [place] [address] Care Team Providers Care Dog Show Judge Name Role Phone Ken Best MD Primary Care Provider [phone] Reason for Visit * Diagnostic Imaging (Routine) - Closed Specialty Diagnoses / Procedures Referred By Contac t Referred To Contact Procedures Breast Imaging Screening Outside Reference Cezar Hull NP Phone: tel: fax: Referral ID Status Reason Start Date Expiration Date Visits Re quested Visits Authorized [id number] Closed 03/01/2023 03/30/2024 1 1 Encounter Details Date Type Department Care Team (Late st Contact Info) Description 11/03/[address] En[address] [facility] [address] [place] [id number] Social History Tobacco Use Types Packs/Day Years Used Date Smoking Tobacco: Never Smokeless Tobacco: Never Alcohol Use Standard Drinks/Week Comments Yes 0 (1 standard drink = 0.6 oz pur e alcohol) Comments Unknown Sex and Gender Information Value Date Recorded Sex Assigned at Not on file Legal Sex Female 12:37 AM FILLING OPERATOR Gender Identity Not on file Sexual Orientation Not on file documented as of this encounter Plan of Treatment Not on file documented as of this encounter Procedures Procedure Name Priority Date/Time Associated Diagnosis Comments BREAST IMAGING MG SCREENING OUTSIDE REFERENCE Routine 11/03/2019 12:00 AM FILLING OPERATOR documented in this encounter Results * Breast Imaging Screening Outside Reference (11/03/2019 12:00 AM FILLING OPERATOR) Impressions [facility] - 03/01/2023 8:38 AM CDT These images are for Reference purposes only and have not been reviewed by [facility] Radiology. There will be no report generated by a [facility] Radiologist. Narrative [facility] - 03/01/2023 8:38 AM CDT EXAMINATION: Images For Reference Purposes Only us Cezar Hull ABLE SEAMAN IMG MAMMO PROCEDURES Final Result [facility] documented in this encounter Visit Diagnoses Not on filedocumented in this encounter Care Teams Dog Show Judge Relationship Specialty Start Date End Date Ken Best MD [address] [address] PCP - General 09/18/17 documented as of this encounter
--- OUTSIDE RECORDS SUMMARY | 2025-04-30 13:59 | XMS_ITS | Clinical Summary ---
Author Organization [facility] Address [address] [place] [address] Care Team Providers Care Account Associate Name Role Phone Ken Best MD Primary Care Provider +1 [phone] Allergies Active Allergy Reactions Criticality Noted Date [...] patient's age to complete this topic Insurance [employer] Care Teams Account Associate Relationship Specialty Start Date End Date Ken Best MD [address] [place] [address] [address] [place] [address] PCP - General FAMILY PRACTICE 02/16/20
--- OUTSIDE RECORDS SUMMARY | 2025-04-30 13:59 | XMS_ITS | Referral Summary ---
Author Organization [facility] Address [facility] [place] [address] Care Team Providers Care Rotary Shear Cutter Name Role Phone Ken Best MD Primary Care Provider [phone] Benoit Jackson MD Unavailable Allergies Active Allergy Reactions Criticality Noted Date [...] on file Legal Sex Female 12:37 AM BAG LINER Gender Identity Not on file Sexual Orientation Not on file Last Filed Vital Signs Vital Sign Reading Time Taken Comments Blood Pressure 124/71 08/09/2021 2:53 PM BAG LINER Pulse 77 08/09/2021 2:53 PM BAG LINER Temperature - - Respiratory Rate 18 08/09/2021 2:53 PM BAG LINER Oxygen Saturation 98% 08/09/2021 2:53 PM BAG LINER Inhaled Oxygen Concentration - - Weight 75.8 kg (167 lb) 03/31/2018 11:12 AM CDT Height 154.9 cm (5' 1) 03/31/2018 11:12 AM CDT Body Mass Index 31.55 03/31/2018 11:12 AM CDT Plan of Treatment Not on file Medical Devices Implanted Type Area General Service Officer Device Identifier Shelf Expiration Date Model / Serial / Lot [employer] Robyniva 13cm Identifier Biopsy Site [id number] - [id number] Implanted:Qty: 1 on 03/07/2023 by Dara Valera MD at [facility] Left: Breast [employer] [id number] 08/22/2023 [facility] / / [id number] Procedures Procedure Name Priority Date/Time Associated Diagnosis [...] to a prior imaging study performed at [facility] on 10/31/2011. There are scattered [...] to a prior imaging study performed at [facility] on 10/31/2011. There are scattered areas of fibroglandular density. There is no suspicious abnormality in either breast. Impression: There is no mammographic evidence of malignancy. Annual screening mammography is recommended. OVERALL FINAL ASSESSMENT: BI-RADS CATEGORY 1: Negative. us Self Screening Mammogram IMG MAMMO PROCEDURES Fi nal Result from Last 3 Months or Most Recently Relevant to Health Maintenance Insurance [facility] CHOICE PLUS [facility] CHOICE PLUS COMMERCIAL GENERIC * Guarantor: ELENA [id number] Account Type Relation to Patient Date of Phone Billing Address Workers Comp Employer Care Teams Rotary Shear Cutter Relationship Specialty Start Date End Date Ken Best MD [address] [address] PCP - General 09/18/17 Benoit Jackson MD [address] [address] Referring Physician Obstetrics and Gynecology 02/14/23
--- OUTSIDE RECORDS SUMMARY | 2025-04-30 13:59 | XMS_ITS | Encounter Summary ---
Author Organization [facility] Healthcare Address [address] [place] [address] Care Team Providers Care Commercial Assistant Name Role Phone Ken Best MD Primary Care Provider [phone] [phone] Reason for Visit * Diagnostic Imaging (Routine) - Closed Specialty Diagnoses / Procedures Referred By Contac t Referred To Contact Procedures Breast Imaging Screening Outside Reference Cezar Hull NP Phone: tel: fax: Referral ID Status Reason Start Date Expiration Date Visits Re quested Visits Authorized [id number] Closed 03/01/2023 03/30/2024 1 1 Encounter Details Date Type Department Care Team (Late st Contact Info) Description 09/29/2018 Hospital Encounter [facility] [place], [place] [id number] Social History Tobacco Use Types Packs/Day Years Used Date Smoking Tobacco: Never Smokeless Tobacco: Never Alcohol Use Standard Drinks/Week Comments Yes 0 (1 standard drink = 0.6 oz pur e alcohol) Comments Unknown Sex and Gender Information Value Date Recorded Sex Assigned at Not on file Legal Sex Female 12:37 AM RFID SYSTEMS ARCHITECT Gender Identity Not on file Sexual Orientation Not on file documented as of this encounter Plan of Treatment Not on file documented as of this encounter Procedures Procedure Name Priority Date/Time Associated Diagnosis Comments BREAST IMAGING MG SCREENING OUTSIDE REFERENCE Routine 09/29/2018 12:00 AM RFID SYSTEMS ARCHITECT documented in this encounter Results * Breast Imaging Screening Outside Reference (09/29/2018 12:00 AM RFID SYSTEMS ARCHITECT) Impressions [facility]MO[facility] - 03/01/2023 8:39 AM CDT These images are for Reference purposes only and have not been reviewed by [facility] Radiology. There will be no report generated by a [facility] Radiologist. Narrative [facility]MAMMO[facility] - 03/01/2023 8:39 AM CDT EXAMINATION: Images For Reference Purposes Only us Cezar Hull MEDIA RELATIONS DIRECTOR IMG MAMMO PROCEDURES Final Result [facility] documented in this encounter Visit Diagnoses Not on filedocumented in this encounter Care Teams Commercial Assistant Relationship Specialty Start Date End Date Ken Best MD [address] [address] PCP - General 09/18/17 documented as of this encounter
--- OUTSIDE RECORDS SUMMARY | 2025-04-30 13:59 | XMS_ITS | Encounter Summary ---
Author Organization [facility] Healthcare Address [address] [place] [address] Care Team Providers Care Hematologist Oncologist Name Role Phone Ken Best MD Primary Care Provider [phone] Reason for Visit * Diagnostic Imaging (Routine) - Closed Specialty Diagnoses / Procedures Referred By Contac t Referred To Contact Procedures Breast Imaging Screening Outside Reference Cezar Hull NP Phone: tel: fax: Referral ID Status Reason Start Date Expiration Date Visits Re quested Visits Authorized [id number] Closed 03/01/2023 03/30/2024 1 1 Encounter Details Date Type Department Care Team (Late st Contact Info) Description 09/25/2017 Hospital Encounter [facility]iology [facility] [place], [place] [id number] Social History Tobacco Use Types Packs/Day Years Used Date Smoking Tobacco: Never Smokeless Tobacco: Never Alcohol Use Standard Drinks/Week Comments Yes 0 (1 standard drink = 0.6 oz pur e alcohol) Comments Unknown Sex and Gender Information Value Date Recorded Sex Assigned at Not on file Legal Sex Female 12:37 AM FOREMAN/PILE DRIVING AND ERECTION Gender Identity Not on file Sexual Orientation Not on file documented as of this encounter Plan of Treatment Not on file documented as of this encounter Procedures Procedure Name Priority Date/Time Associated Diagnosis Comments BREAST IMAGING MG SCREENING OUTSIDE REFERENCE Routine 09/25/2017 12:00 AM FOREMAN/PILE DRIVING AND ERECTION documented in this encounter Results * Breast Imaging Screening Outside Reference (09/25/2017 12:00 AM FOREMAN/PILE DRIVING AND ERECTION) Impressions [facility]MO[facility] - 03/01/2023 8:40 AM CDT These images are for Reference purposes only and have not been reviewed by [facility] Radiology. There will be no report generated by a [facility] Radiologist. Narrative [facility]MO[facility] - 03/01/2023 8:40 AM CDT EXAMINATION: Images For Reference Purposes Only Cezar Hull HOOK UP IMG MAMMO PROCEDURES Final Result [facility] documented in this encounter Visit Diagnoses Not on filedocumented in this encounter Care Teams Hematologist Oncologist Relationship Specialty Start Date End Date Ken Best MD [address] [employer] [address] PCP - General 09/18/17 documented as of this encounter
--- OUTSIDE RECORDS SUMMARY | 2025-04-30 13:59 | XMS_ITS | Continuity of Care Document ---
Author Organization [facility] Address [address] [facility] [address] [place] [address] Phone Care Team Providers Care Weekend Anchor Name Role Phone Wagner ROBERTSMicha Unavailable Unavailable Advance Directives Directive Yes / No Effective Date File Name No Information Encounters Encounter Description Practice Location Reason(s) For Visit Diagnoses Date Provider Providers Copied on Encounter [facility], [address], [place], [place], [id number], [place] tel:[phone] [facility] [place] No Information Wagner Louis. [address] [facility], [place], [address], [place]. tel: [phone] Family History Family Member Type Diagnosis Age At Onset No Information Payers Payer name Insurance type Covered democrat ID Authoriza tion(s) No Information Social History [...]
--- OUTSIDE RECORDS SUMMARY | 2025-04-30 13:59 | XMS_ITS | Clinical Summary ---
Author Organization [facility] Address [address] [place] [address] Care Team Providers Care Framing Specialist Name Role Phone Ken Best MD Primary Care Provider [phone] Source Comments [facility],non-owned Affiliates and Associated Physician Practices is amultiple site organization consisting of ambulatory clinics and hospital sitesin [place], [place], [place] and [place]. This disclosure is being madepursuant to the Care Everywhere program and may not contain all information available regarding this patient. Last updated 18.[facility] Allergies No known active allergies Medications * [...] (ULTRAM) 50 MG tabletIndicatio ns:Rheumatoid arthritis(714.0 ) ([facility]) Take 1 Tab by mouth 3 times daily. Take one or two pills with over the counter Tylenol for daily pain flare ups 270 3 9 Active Methotrexate (Anti-Rheumatic ) 2.5 MG TABSIndications :Rheumatoid arthritis(714.0 ) ([facility]) Take 6 Tabs by mouth every 7 days before meal. 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 Not on file Not on file Last Filed Vital Signs Vital Sign Reading Time Taken Comments Blood Pressure 116/64 09/20/2017 11:25 AM BUSINESS DEPARTMENT CHAIR Pulse 101 09/20/2017 11:25 AM BUSINESS DEPARTMENT CHAIR Temperature 36.8 C (98.3 F) 09/20/2017 11:25 AM BUSINESS DEPARTMENT CHAIR Respiratory Rate 18 09/20/2017 11:25 AM BUSINESS DEPARTMENT CHAIR Oxygen Saturation 98% 09/20/2017 11:25 AM BUSINESS DEPARTMENT CHAIR Inhaled Oxygen Concentration - - Weight 78.9 kg (174 lb) 09/20/2017 11:25 AM BUSINESS DEPARTMENT CHAIR Height 154.9 cm (5' 1) 09/20/2017 11:25 AM BUSINESS DEPARTMENT CHAIR Body Mass Index 32.88 09/20/2017 11:25 AM BUSINESS DEPARTMENT CHAIR Plan of Treatment Health Maintenance Due Date [...] PM CDT Narrative Resulting Agency Comment [facility] [address] [facility] [id number] Saravanan Escobedo MD LAB - CHEMISTRY ORDERABLES Nereyda pham Result [facility] ACCOUNT BILL [address] [place] [address] from Last 3 Months or Most Recently Relevant to Health Maintenance Insurance [facility] Care Teams Framing Specialist Relationship Specialty Start Date End Date Ken Best MD PCP - General 01/06/09
--- OUTSIDE RECORDS SUMMARY | 2025-04-30 13:59 | XMS_ITS | Encounter Summary ---
Author Organization [facility] Healthcare Address [address] [place] [address] Care Team Providers Care Group Cio Name Role Phone Ken Best MD Primary Care Provider [phone] Reason for Visit * Diagnostic Imaging (Routine) - Closed Specialty Diagnoses / Procedures Referred By Contac t Referred To Contact Procedures Breast Imaging Screening Outside Reference Cezar Hull NP Phone: tel: fax: Referral ID Status Reason Start Date Expiration Date Visits Re quested Visits Authorized [id number] Closed 03/01/2023 03/30/2024 1 1 Encounter Details Date Type Department Care Team (Late st Contact Info) Description 11/08/2020 Hospital Encounter [facility]iology [facility] [address] [place] [id number] Social History Tobacco Use Types Packs/Day Years Used Date Smoking Tobacco: Never Smokeless Tobacco: Never Alcohol Use Standard Drinks/Week Comments Yes 0 (1 standard drink = 0.6 oz pur e alcohol) Comments Unknown Sex and Gender Information Value Date Recorded Sex Assigned at Not on file Legal Sex Female 12:37 AM DATA SPECIALIST Gender Identity Not on file Sexual Orientation Not on file documented as of this encounter Plan of Treatment Not on file documented as of this encounter Procedures Procedure Name Priority Date/Time Associated Diagnosis Comments BREAST IMAGING MG SCREENING OUTSIDE REFERENCE Routine 11/08/2020 12:00 AM DATA SPECIALIST documented in this encounter Results * Breast Imaging Screening Outside Reference (11/08/2020 12:00 AM DATA SPECIALIST) Impressions [facility]MO[facility] - 03/01/2023 8:38 AM CDT These images are for Reference purposes only and have not been reviewed by [facility] Radiology. There will be no report generated by a [facility] Radiologist. Narrative [facility]MAMMO[facility] - 03/01/2023 8:38 AM CDT EXAMINATION: Images For Reference Purposes Only us Cezar Hull NP IMG MAMMO PROCEDURES Final Result [facility] documented in this encounter Visit Diagnoses Not on filedocumented in this encounter Care Teams Group Cio Relationship Specialty Start Date End Date Ken Best MD [address] [address] PCP - General 09/18/17 documented as of this encounter
--- OUTSIDE RECORDS SUMMARY | 2025-04-30 13:59 | XMS_ITS | Clinical Summary ---
Author Organization [facility] Address [facility] [place] [address] Care Team Providers Care Warehouse Representative Name Role Phone Ken Best MD Primary Care Provider [phone] Benoit Jackson MD Unavailable [phone] Allergies Active Allergy Reactions Criticality Noted Date [...] on file Legal Sex Female 12:37 AM RN CORONARY CARE UNIT Gender Identity Not on file Sexual Orientation Not on file Obstetrics History Last Filed Vital Signs Vital Sign Reading Time Taken Comments Blood Pressure 124/71 08/09/2021 2:53 PM RN CORONARY CARE UNIT Pulse 77 08/09/2021 2:53 PM RN CORONARY CARE UNIT Temperature - - Respiratory Rate 18 08/09/2021 2:53 PM RN CORONARY CARE UNIT Oxygen Saturation 98% 08/09/2021 2:53 PM RN CORONARY CARE UNIT Inhaled Oxygen Concentration - - Weight 75.8 [...] 06/24/2019, 04/17/2019 Medical Devices Implanted Type Area Retirement Plan Specialist Device Identifier Shelf Expiration Date Model / Serial / Lot Cover Eviva 13cm Identifier Biopsy Site [id number] - [id number] Implanted:Qty: 1 on 03/07/2023 by Dara Valera MD at [facility] Left: Breast [employer] [id number] [facility]/22/2023 [facility] / / [id number] Procedures Procedure Name Priority Date/Time Associated Diagnosis [...] to a prior imaging study performed at [facility] on 10/31/2011. There are scattered areas of [...] to a prior imaging study performed at [facility] on 10/31/2011. There are scattered areas of fibroglandular density. There is no suspicious abnormality in either breast. Impression: There is no mammographic evidence of malignancy. Annual screening mammography is recommended. OVERALL FINAL ASSESSMENT: BI-RADS CATEGORY 1: Negative. us Self Screening Mammogram IMG MAMMO PROCEDURES Fi nal Result from Last 3 Months or Most Recently Relevant to Health Maintenance Insurance [facility] CHOICE PLUS [facility] HMO/PPO Address: [address] [place] [address] [facility] CHOICE PLUS [facility] HMO/PPO Address: [place] [address] COMMERCIAL GENERIC * Guarantor: ELENA [id number] Account Type Relation to Patient Date of Phone Billing Address Workers Comp Employer Care Teams Warehouse Representative Relationship Specialty Start Date End Date Ken Best MD [address] [address] PCP - General 09/18/17 Benoit Jackson MD [address] [address] Referring Physician Obstetrics and Gynecology 02/14/23
== END 2025-04-30 13:55 | disposition home or self-care (01) ==
LOC: CHSIMG 13:56
PROVIDERS: PCP Nurse Practitioner Adult Health; Visit Provider Nurse Practitioner Adult Health
DX: Z12.31 Encounter for screening mammogram for malignant neoplasm of breast (principal)
CPT/HCPCS: 77063; 77067

== ENCOUNTER 2025-06-15 15:58 | Outpatient (CLI) | payer OTHER, SELFPAY ==
--- OUTSIDE RECORDS SUMMARY | 2004-01-25 06:00 | XMS_ITS | Continuity of Care Document ---
Author Organization Located [facility] Address [address] [place] [address] Phone Care Team Providers Care Operative Supervisor Name Role Phone Wagner ROBERTSMicha Unavailable Unavailable Advance Directives Directive Yes / No Effective Date File Name No Information Encounters Encounter Description Practice Location Reason(s) For Visit Diagnoses Date Provider Providers Copied on Encounter [facility], [address], [place], [place], [address], [place] tel:[phone] [place] No Information Wagner Louis. [address] [facility], [place], [address], [place]. tel: [phone] Family History Family Member Type Diagnosis Age At Onset No Information Payers Payer name Insurance type Covered alliance party ID Authoriza tion(s) No Information Social [...]
--- OUTSIDE RECORDS SUMMARY | 2017-09-25 01:00 | XMS_ITS | Encounter Summary ---
Author Organization [facility] Healthcare Address [address] [place] [address] Care Team Providers Care Powertrain Design Engineer Name Role Phone Ken Best MD Primary Care Provider [phone] Reason for Visit * Diagnostic Imaging (Routine) - Closed Specialty Diagnoses / Procedures Referred By Contac t Referred To Contact Procedures Breast Imaging Screening Outside Reference Cezar Hull NP Phone: tel: fax: Referral ID Status Reason Start Date Expiration Date Visits Re quested Visits Authorized [id number] Closed 03/01/2023 03/30/2024 1 1 Encounter Details Date Type Department Care Team (Late st Contact Info) Description 09/25/2017 Hospital Encounter [facility] [place], [place] [id number] Social History Tobacco Use Types Packs/Day Years Used Date Smoking Tobacco: Never Smokeless Tobacco: Never Alcohol Use Standard Drinks/Week Comments Yes 0 (1 standard drink = 0.6 oz pur e alcohol) Comments Unknown Sex and Gender Information Value Date Recorded Sex Assigned at Not on file Legal Sex Female 12:37 AM RISK PREVENTION ENGINEER Gender Identity Not on file Sexual Orientation Not on file documented as of this encounter Plan of Treatment Not on file documented as of this encounter Procedures Procedure Name Priority Date/Time Associated Diagnosis Comments BREAST IMAGING MG SCREENING OUTSIDE REFERENCE Routine 09/25/2017 12:00 AM RISK PREVENTION ENGINEER documented in this encounter Results * Breast Imaging Screening Outside Reference (09/25/2017 12:00 AM RISK PREVENTION ENGINEER) Impressions [facility] - 03/01/2023 8:40 AM CDT These images are for Reference purposes only and have not been reviewed by [facility] Radiology. There will be no report generated by a [facility] Radiologist. Narrative RAD[facility] - 03/01/2023 8:40 AM CDT EXAMINATION: Images For Reference Purposes Only Cezar Hull MACHINE TACK PULLER IMG MAMMO PROCEDURES Final Result [facility] documented in this encounter Visit Diagnoses Not on filedocumented in this encounter Care Teams Powertrain Design Engineer Relationship Specialty Start Date End Date Ken Best MD [address] [address] PCP - General 09/18/17 05/12/25 documented as of this encounter
--- OUTSIDE RECORDS SUMMARY | 2018-09-29 01:00 | XMS_ITS | Encounter Summary ---
Author Organization [facility] Healthcare Address [address] [place] [address] Care Team Providers Care Harvest Supervisor Name Role Phone Ken Best MD Primary Care Provider [phone] [phone] Reason for Visit * Diagnostic Imaging (Routine) - Closed Specialty Diagnoses / Procedures Referred By Contac t Referred To Contact Procedures Breast Imaging Screening Outside Reference Cezar Hull NP Phone: tel: fax: Referral ID Status Reason Start Date Expiration Date Visits Re quested Visits Authorized [id number] Closed 03/01/2023 03/30/2024 1 1 Encounter Details Date Type Department Care Team (Late st Contact Info) Description 09/29/2018 Hospital Encounter [facility] [place], [place] [address] Social History Tobacco Use Types Packs/Day Years Used Date Smoking Tobacco: Never Smokeless Tobacco: Never Alcohol Use Standard Drinks/Week Comments Yes 0 (1 standard drink = 0.6 oz pur e alcohol) Comments Unknown Sex and Gender Information Value Date Recorded Sex Assigned at Not on file Legal Sex Female 12:37 AM NATIONAL SALES CONSULTANT Gender Identity Not on file Sexual Orientation Not on file documented as of this encounter Plan of Treatment Not on file documented as of this encounter Procedures Procedure Name Priority Date/Time Associated Diagnosis Comments BREAST IMAGING MG SCREENING OUTSIDE REFERENCE Routine 09/29/2018 12:00 AM NATIONAL SALES CONSULTANT documented in this encounter Results * Breast Imaging Screening Outside Reference (09/29/2018 12:00 AM NATIONAL SALES CONSULTANT) Impressions [facility]MO[facility] - 03/01/2023 8:39 AM CDT These images are for Reference purposes only and have not been reviewed by [facility] Radiology. There will be no report generated by a [facility] Radiologist. Narrative [facility] - 03/01/2023 8:39 AM CDT EXAMINATION: Images For Reference Purposes Only us Cezar Hull MANUFACTURING ANALYST IMG MAMMO PROCEDURES Final Result [facility] documented in this encounter Visit Diagnoses Not on filedocumented in this encounter Care Teams Harvest Supervisor Relationship Specialty Start Date End Date Ken Best MD [address] [address] PCP - General 09/18/17 05/12/25 documented as of this encounter
--- OUTSIDE RECORDS SUMMARY | 2019-11-03 01:00 | XMS_ITS | Encounter Summary ---
Author Organization [facility] Healthcare Address [address] [place] [address] Care Team Providers Care Vocal Music Instructor Name Role Phone Ken Best MD Primary Care Provider [phone] [phone] Reason for Visit * Diagnostic Imaging (Routine) - Closed Specialty Diagnoses / Procedures Referred By Contac t Referred To Contact Procedures Breast Imaging Screening Outside Reference Cezar Hull NP Phone: tel: fax: Referral ID Status Reason Start Date Expiration Date Visits Re quested Visits Authorized [id number] Closed 03/01/2023 03/30/2024 1 1 Encounter Details Date Type Department Care Team (Late st Contact Info) Description 11/03/2019 Hospital Encounter [facility]iology [facility] [address] [place] [phone] Social History Tobacco Use Types Packs/Day Years Used Date Smoking Tobacco: Never Smokeless Tobacco: Never Alcohol Use Standard Drinks/Week Comments Yes 0 (1 standard drink = 0.6 oz pur e alcohol) Comments Unknown Sex and Gender Information Value Date Recorded Sex Assigned at Not on file Legal Sex Female 12:37 AM VIRTUAL RECRUITER Gender Identity Not on file Sexual Orientation Not on file documented as of this encounter Plan of Treatment Not on file documented as of this encounter Procedures Procedure Name Priority Date/Time Associated Diagnosis Comments BREAST IMAGING MG SCREENING OUTSIDE REFERENCE Routine 11/03/2019 12:00 AM VIRTUAL RECRUITER documented in this encounter Results * Breast Imaging Screening Outside Reference (11/03/2019 12:00 AM VIRTUAL RECRUITER) Impressions RAD[facility]MO[facility] - 03/01/2023 8:38 AM CDT These images are for Reference purposes only and have not been reviewed by [facility] Radiology. There will be no report generated by a [facility] Radiologist. Narrative RAD_MAMMO[facility] - 03/01/2023 8:38 AM CDT EXAMINATION: Images For Reference Purposes Only Cezar Hull SEO MANAGER IMG MAMMO PROCEDURES Final Result [facility] documented in this encounter Visit Diagnoses Not on filedocumented in this encounter Care Teams Vocal Music Instructor Relationship Specialty Start Date End Date Ken Best MD [address] [address] PCP - General 09/18/17 05/12/25 documented as of this encounter
--- OUTSIDE RECORDS SUMMARY | 2020-11-08 01:00 | XMS_ITS | Encounter Summary ---
Author Organization [facility] Healthcare Address [address] [place] [address] Care Team Providers Care Carburetor Specialist Name Role Phone Ken Best MD Primary Care Provider [phone] Reason for Visit * Diagnostic Imaging (Routine) - Closed Specialty Diagnoses / Procedures Referred By Contac t Referred To Contact Procedures Breast Imaging Screening Outside Reference Cezar Hull NP Phone: tel: fax: Referral ID Status Reason Start Date Expiration Date Visits Re quested Visits Authorized [id number] Closed 03/01/2023 03/30/2024 1 1 Encounter Details Date Type Department Care Team (Late st Contact Info) Description 11/08/2020 Hospital Encounter [facility]iology [facility] [address] [place] [address] [phone] Social History Tobacco Use Types Packs/Day Years Used Date Smoking Tobacco: Never Smokeless Tobacco: Never Alcohol Use Standard Drinks/Week Comments Yes 0 (1 standard drink = 0.6 oz pur e alcohol) Comments Unknown Sex and Gender Information Value Date Recorded Sex Assigned at Not on file Legal Sex Female 12:37 AM FLIGHT TEST DATA ACQUISITION TECHNICIAN Gender Identity Not on file Sexual Orientation Not on file documented as of this encounter Plan of Treatment Not on file documented as of this encounter Procedures Procedure Name Priority Date/Time Associated Diagnosis Comments BREAST IMAGING MG SCREENING OUTSIDE REFERENCE Routine 11/08/2020 12:00 AM FLIGHT TEST DATA ACQUISITION TECHNICIAN documented in this encounter Results * Breast Imaging Screening Outside Reference (11/08/2020 12:00 AM FLIGHT TEST DATA ACQUISITION TECHNICIAN) Impressions [facility] - 03/01/2023 8:38 AM CDT These images are for Reference purposes only and have not been reviewed by [facility] Radiology. There will be no report generated by a [facility] Radiologist. Narrative [facility] - 03/01/2023 8:38 AM CDT EXAMINATION: Images For Reference Purposes Only us Cezar Hull NP IMG MAMMO PROCEDURES Final Result [facility] documented in this encounter Visit Diagnoses Not on filedocumented in this encounter Care Teams Carburetor Specialist Relationship Specialty Start Date End Date Ken Best MD [address] [address] PCP - General 09/18/17 05/12/25 documented as of this encounter
--- NOTE | 2025-06-15 16:02 | ECHO_ITS ---
Patient Info Name: Faye Lennon Age: 59 years : 1965 Gender: Female Ht: 61 in Wt: 179 lbs BSA: 1.91 m2 HR: 91 bpm BP: 140 / 92 mmHg Heart Rhythm: Sinus Rhythm Technical Quality: Fair Exam Date: 06/15/2025 4:05 PM Patient Status: O Admit Date: 06/15/2025 Exam Type: CA echo doppler color flow Complete two-dimensional, color flow and Doppler transthoracic echocardiogram is performed. Belt Press Operator: Dorinda Kwan Attending Provider: Nettie Bella Summary 1. Complete two-dimensional, color flow and Doppler transthoracic echocardiogram is performed. 2. Left ventricular chamber dimension is normal. 3. Left ventricular systolic function is normal, estimated at 65-70. 4. The left ventricular diastolic function is grade I diastolic dysfunction. 5. Ventricular septum is sigmoid shaped. No resting LOVT obstruction. 6. E/e' 17 is elevated. 7. Left atrial chamber dimension is mildly enlarged. 8. The aortic valve is possibly bicuspid. 9. There is mild aortic valve sclerosis. 10. There is trace aortic valve regurgitation. 11. There is mild to moderate mitral valve regurgitation. 12. No pulmonary hypertension, estimated pulmonary arterial systolic pressure is 22 mmHg. 13. The prox ascending aorta size is borderline dilated at 4.0 cm. Left Ventricle E/e' 17 is elevated. Left ventricular chamber dimension is normal. Left ventricular systolic function is normal, estimated at 65-70. The left ventricular diastolic function is grade I diastolic dysfunction. Ventricular septum is sigmoid shaped. No resting LOVT obstruction. Right Ventricle Right ventricular chamber dimension is normal. Right ventricular systolic function is normal. Left Atria Left atrial chamber dimension is mildly enlarged. Right Atria Right atrial chamber dimension is normal. Aortic Valve The aortic valve is possibly bicuspid. There is mild aortic valve sclerosis. There is no aortic valve stenosis. There is trace aortic valve regurgitation. Pulmonic Valve There is no pulmonic regurgitation. Mitral Valve There is no mitral valve stenosis. There is mild to moderate mitral valve regurgitation. Tricuspid Valve There is no tricuspid valve regurgitation. No pulmonary hypertension, estimated pulmonary arterial systolic pressure is 22 mmHg. Pericardium/Pleural There is no pericardial effusion. Inferior Vena Cava Normal inferior vena cava with >50% collapse upon inspiration consistent with normal right atrial pressure, 5 mmHg. Aorta The aortic root size at the sinus of Valsalva is normal. The prox ascending aorta size is borderline dilated at 4.0 cm. Left Ventricular Outflow Tract Name Value Normal LVOT 2D LVOT Diameter 2.0 cm LVOT Doppler LVOT Peak Velocity 131 cm/s LVOT Peak Gradient 7 mmHg LVOT Mean Gradient 4 mmHg LVOT VTI 24 cm LVOT VTI/AV VTI Ratio 0.7 LVOT Stroke Volume 72 ml LVOT CO 6.1 l/min LVOT CI 3.2 l/min/m2 Pulmonic Valve Name Value Normal RVOT Doppler RVOT Peak Velocity 83 cm/s RVOT Peak Gradient 3 mmHg PV Doppler PV Peak Velocity 107 cm/s PV Peak Gradient 5 mmHg Mitral Valve Name Value Normal MV Regurgitation Doppler MR Peak Gradient 132 mmHg MV Diastolic Function MV E Peak Velocity 82 cm/s MV A Peak Velocity 96 cm/s MV E/A 0.9 MV Decel Time (PW) 162 ms MV Annular TDI MV E/e' (Septal) 16.4 MV E/e' (Lateral) 17.7 MV E/e' (Average) 17.0 Tricuspid Valve Name Value Normal TV Regurgitation Doppler TR Peak Velocity 206 cm/s TR Peak Gradient 17 mmHg Estimated PAP/RSVP RA Pressure 5 mmHg <=5 PA Systolic Pressure 22 mmHg <36 RV Systolic Pressure 22 mmHg <36 TV Annular TDI TV Lateral Sugey s' Velocity 12.8 cm/s >=9.5 Aorta Name Value Normal Ascending Aorta Ao Root Diameter (MM) 3.4 cm Ao Root Diam Index (MM) 1.8 cm/m2 Aortic Valve Name Value Normal AV Doppler AV Peak Velocity 197 cm/s AV Peak Gradient 15 mmHg AV Mean Gradient 8 mmHg AV VTI 34 cm AV Area (Cont Eq VTI) 2.1 cm2 >=3.0 AV Area (Cont Eq Sree) 2.0 cm2 AV DI (Sree) 0.67 AV Regurgitation 2D LVOT Area 3.0 cm2 Ventricles Name Value Normal LV Dimensions 2D/MM IVS Diastolic Thickness (2D) 0.8 cm 0.6-1.0 LVID Diastole (2D) 4.0 cm 3.8-5.2 LVIW Diastolic Thickness (2D) 0.8 cm 0.6-0.9 LVID Systole (2D) 2.8 cm 2.2-3.5 LVOT Diameter 2.0 cm LV Mass (2D Cubed) 98.96 g 67.00-162.00 LV Mass Index (2D Cubed) 52 g/m2 43-95 Relative Wall Thickness (2D) 0.40 <=0.42 LV Fractional Shortening/Ejection Fraction 2D/MM LV Fractional Shortening (2D) 32 % 27-45 LV EF (2D Teichholz) 60 % LV Diastolic Volume (4C MOD) 67 ml LV EF (4C MOD) 65 % LV Diastolic Volume (2C MOD) 62 ml LV EF (2C MOD) 66 % LV Diastolic Volume (BP MOD) 66 ml 46-106 LV Diastolic Volume Index (BP MOD) 35 ml/m2 29-61 LV Systolic Volume (BP MOD) 22 ml 14-42 LV Systolic Volume Index (BP MOD) 12 ml/m2 8-24 LV EF (BP MOD) 66 % 54-74 LV Diastolic Length (4C) 6.9 cm LV Systolic Length (4C) 5.5 cm LV Stroke Volume (4C MOD) 44 ml Atria Name Value Normal LA Dimensions LA Dimension (MM) 3.3 cm 2.7-3.8 LA Volume (4C A-L) 39 ml LA Volume (BP A-L) 40 ml RA Dimensions RA Systolic Major [place]on Length (4C) 4.8 cm 2.2-2.8 RA Area (4C) 7.6 cm2 <=18.0 Report Signatures
--- OUTSIDE RECORDS SUMMARY | 2025-06-15 16:52 | XMS_ITS | Clinical Summary ---
Author Organization [facility] Address [address] [place] [address] Care Team Providers Care Improvement Leader Name Role Phone Ken Best MD Primary Care Provider [phone] Source Comments [facility],non-owned Affiliates and Associated Physician Practices is amultiple site organization consisting of ambulatory clinics and hospital sitesin [place], [place], [place] and [place]. This disclosure is being madepursuant to the Care Everywhere program and may not contain all information available regarding this patient. Last updated 18.[facility] Allergies No known active allergies Medications * [...] 50 MG tabletIndicatio ns:Rheumatoid arthritis(714.0 ) ([facility]) Take 1 Tab by mouth 3 times daily. Take one or two pills with over the counter Tylenol for daily pain flare ups 270 3 9 Active Methotrexate (Anti-Rheumatic ) 2.5 MG TABSIndications :Rheumatoid arthritis(714.0 ) (HCC) Take 6 Tabs by mouth every 7 days before meal. 72 3 9 Active meloxicam (MOBIC) 7.5 MG tabletIndicatio ns:Rheumatoid arthritis(714.0 ) ([facility]) Take 1 Tab by mouth daily. 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 Not on file Not on file Last Filed Vital Signs Vital Sign Reading Time Taken Comments Blood Pressure 116/64 09/20/2017 11:25 AM PACKAGING SPECIALIST Pulse 101 09/20/2017 11:25 AM PACKAGING SPECIALIST Temperature 36.8 C (98.3 F) 09/20/2017 11:25 AM PACKAGING SPECIALIST Respiratory Rate 18 09/20/2017 11:25 AM PACKAGING SPECIALIST Oxygen Saturation 98% 09/20/2017 11:25 AM PACKAGING SPECIALIST Inhaled Oxygen Concentration - - Weight 78.9 kg (174 lb) 09/20/2017 11:25 AM PACKAGING SPECIALIST Height 154.9 cm (5' 1) 09/20/2017 11:25 AM PACKAGING SPECIALIST Body Mass Index 32.88 09/20/2017 11:25 AM PACKAGING SPECIALIST Plan of Treatment Health Maintenance Due Date [...] 2014 SCREENING FOR DIABETES 09/20/2017 9, 01/27/2009 DEPRESSION SCREENING 09/30/2024 COVID-19 VACCINE (1 - 2023-2 5 season) 2025 INFLUENZA VACCINE (#1) 2025 7, 07/05/2016 Respiratory Syncytial Virus (RSV) Vaccine Pt: or [...] A/C/Y/W VACCINE Aged Out No longer eligible b [...] PM CDT Narrative Resulting Agency Comment [facility] [address] [facility] [id number] us Saravanan Escobedo MD LAB - CHEMISTRY ORDERABLES Nereyda pham Result [facility] ACCOUNT BILL [address] [place] [address] from Last 3 Months or Most Recently Relevant to Health Maintenance Insurance [facility] Care Teams Improvement Leader Relationship Specialty Start Date End Date Ken Best MD PCP - General 01/06/09
--- OUTSIDE RECORDS SUMMARY | 2025-06-15 16:52 | XMS_ITS | Clinical Summary ---
Author Organization [facility] Address [address] [place] [address] Care Team Providers Care Optical Engineering Technician Name Role Phone Ken Best MD Primary Care Provider [phone] Allergies Active Allergy Reactions Criticality Noted Date [...] 2 - PPSV23) 04/17/2020 04/17/2019 COVID-19 Vaccine (1 - 2023-2 5 season) 2025 RSV Immunization or 60+ Years (1 - [...] this topic Insurance [facility] Care Teams Optical Engineering Technician Relationship Specialty Start Date End Date Ken Best MD [address] [place] [address] [address] [place] [address] PCP - General FAMILY PRACTICE 02/16/20
--- OUTSIDE RECORDS SUMMARY | 2025-06-15 16:52 | XMS_ITS | Clinical Summary ---
Author Organization [facility] Address [place] [address] Care Team Providers Care Company Laundry Worker Name Role Phone Benoit Jackson MD Unavailable Nettie Bella NP Primary Care Provider [phone] Allergies Active Allergy Reactions Criticality Noted Date [...] 1/2 TS PO BID FOR MIGRAINE 3 04/26/201 8 Active BD Tuberculin Syringe 1 mL [...] Encounters Date Type Department Care Team Description 05/19/2025 4:34 PM CDT - 05/19/2025 11:59 PM CDT Hospital Encounter [facility] [address] [place] [address] Unspecified injury of left lower leg, initial encounter Discharge Disposition: Discharge to home or self care from Last 3 Months Surgical History Surgery [...] on file Legal Sex Female 12:37 AM LOSS MITIGATION SPECIALIST Gender Identity Not on file Sexual Orientation Not on file Obstetrics History Last Filed Vital Signs Vital Sign Reading Time Taken Comments Blood Pressure 124/71 08/09/2021 2:53 PM LOSS MITIGATION SPECIALIST Pulse 77 08/09/2021 2:53 PM LOSS MITIGATION SPECIALIST Temperature - - Respiratory Rate 18 08/09/2021 2:53 PM LOSS MITIGATION SPECIALIST Oxygen Saturation 98% 08/09/2021 2:53 PM LOSS MITIGATION SPECIALIST Inhaled Oxygen Concentration - - Weight [...] Pneumococcal vaccine <65 (2 of 2 - PPSV23, PCV20, or PCV21) 06/12/2019 04/17/2019 Breast Cancer Screening-Mammogram 03/09/2025 024 Covid-19 Vaccine (2024-2 6 season) 2025 05/08/2022, 09/08/2021, 11/12/2020, Additional history exists Influenza Vaccine (#1) 2025 , 06/18/2023, 06/24/2019, Additional history exists Zoster Vaccine Completed 06/24/2019, 04/17/2019 Medical Devices Implanted Type Area Lumber Inspector Device Identifier Shelf Expiration Date Model / Serial / Lot [employer] Eviva 13cm Identifier Biopsy Site [id number] - [id number] Implanted:Qty: 1 on 03/07/2023 by Dara Valera MD at [facility] Left: Breast [employer] [id number] 08/22/2023 SMARK-PHIL VA-13 / / [id number] Procedures Procedure Name Priority Date/Time Associated Diagnosis Comments MRI KNEE LEFT WO CONTRAST Schedule Routine, Read Routine (OP Routine) 05/19/2025 5:05 PM CDT Unspecified injury of left lower leg, initial encounter SCREENING MAMMOGRAM BILATERAL W JHONATHAN Schedule Routine, Read Routine (OP Routine) 03/09/2024 9:56 AM CDT Screening mammogram, encounter for from Last 3 Months or Most Recently Relevant to Health Maintenance Results * MRI Knee Left WO Contrast (05/19/2025 5:05 PM CDT) Anatomical Region Laterality Modality Lower Extremities Left Magnetic Reson ance 05/19/2025 7:10 PM CDT Narrative 05/19/2025 7:18 PM CDT EXAM DESCRIPTION: MRI KNEE LEFT WO CONTRAST REASON FOR STUDY: knee injury March 31, 2025 pt injured her left knee by twisting it; sharp pains and instability, injection thereafter for pain management; initial encounter TECHNIQUE: Multiplanar, multisequence MRI of the left knee was performed without contrast. COMPARISON: None available FINDINGS: In the medial compartment, there is an oblique undersurface tear of the posterior horn. Complex tear of the posterior horn root junction. Partial-thickness cartilage loss. In the lateral compartment, the meniscus is intact. There is no focal chondrosis or subchondral edema. In the patellofemoral compartment, deep partial-thickness cartilage loss of the median ridge with subchondral edema. The cruciate and collateral ligaments are intact. The extensor mechanism is normal. The popliteus tendon is intact. Small effusion. There are no loose bodies. Mild edema deep to the iliotibial band. Tiny Morgan cyst. IMPRESSION: 1. Oblique undersurface tear of the left medial meniscus posterior horn with complex tear of the posterior horn root junction. 2. Mild medial and moderate patellofemoral bicompartmental left knee chondrosis. 3. Small left knee effusion. 4. Mild edema deep to the left iliotibial band which can be associated with iliotibial band friction syndrome. THIS IS AN ELECTRONICALLY VERIFIED FINAL REPORT 05/19/2025 7:18 PM - Electronically signed by Haja Suarez M.D. MF: GREG Report ID: [id number] Reading Location: [id number] Procedure Note Haja Suarez MD - 05/19/2025 EXAM DESCRIPTION: MRI KNEE LEFT WO CONTRAST REASON FOR STUDY: knee injury March 31, 2025 pt injured her left knee by twisting it; sharp pains and instability, injection thereafter for pain management; initial encounter TECHNIQUE: Multiplanar, multisequence MRI of the left knee was performed without contrast. COMPARISON: None available FINDINGS: In the medial compartment, there is an oblique undersurface tear of the posterior horn. Complex tear of the posterior horn root junction. Partial-thickness cartilage loss. In the lateral compartment, the meniscus is intact. There is no focal chondrosis or subchondral edema. In the patellofemoral compartment, deep partial-thickness cartilage lossof the median ridge with subchondral edema. The cruciate and collateral ligaments are intact. The extensor mechanismis normal. The popliteus tendon is intact. Small effusion. There are noloose bodies. Mild edema deep to the iliotibial band. Tiny Morgan cyst. IMPRESSION: 1. Oblique undersurface tear of the left medial meniscus posterior hornwith complex tear of the posterior horn root junction. 2. Mild medial and moderate patellofemoral bicompartmental left knee chondrosis. 3. Small left knee effusion. 4. Mild edema deep to the left iliotibial band which can be associatedwith iliotibial band friction syndrome. THIS IS AN ELECTRONICALLY VERIFIED FINAL REPORT 05/19/2025 7:18 PM - Electronically signed by Haja Suarez M.D. MF: GREG Report ID: [id number] Reading Location: [id number] Ovi Yarbrough MD IMG MRI PROCEDURES Final Res ult * Screening Mammogram Bilateral W Jhonathan (03/09/2024 9:56 AM CDT) Anatomical Region Laterality Modality Breast Bilateral Mammography Narrative 03/11/2024 9:57 AM CDT Mammogram Technique: Bilateral Digital Breast Tomosynthesis, Bilateral C-view 2D Screening mammogram. Views obtained: bilateral craniocaudal and bilateral mediolateral oblique. Computer Aided Detection was performed. Mammogram Findings: The present examination has been compared to a prior imaging study performed at [facility] on 10/31/2011. There are scattered areas of [...] to a prior imaging study performed at [facility] on 10/31/2011. There are scattered areas of fibroglandular density. There is no suspicious abnormality in either breast. Impression: There is no mammographic evidence of malignancy. Annual screening mammography is recommended. OVERALL FINAL ASSESSMENT: BI-RADS CATEGORY 1: Negative. us Self Screening Mammogram IMG MAMMO PROCEDURES Fi nal Result from Last 3 Months or Most Recently Relevant to Health [place] [address] [facility] [address] [facility] CHOICE PLUS [facility]/PPO Address: [address] [place] [id number] [address] [facility] CHOICE PLUS [facility] HMO/PPO Address: [address] [address] COMMERCIAL GENERIC * Guarantor: ELENA [id number] Account Type Relation to Patient Date of Phone Billing Address Workers Comp Employer [address] [address] Care Teams Company Laundry Worker Relationship Specialty Start Date End Date Netite Bella NP [facility] [place] [address] PCP - General Nurse Practitioner 05/13/25 Benoit Jackson MD [address] [id number] Referring Physician Obstetrics and Gynecology 02/14/23
== END 2025-06-15 15:59 | disposition home or self-care (01) ==
LOC: CHSIMG 15:59
PROVIDERS: PCP Nurse Practitioner Adult Health; Visit Provider Nurse Practitioner Adult Health
DX: I71.9 Aortic aneurysm of unspecified site, without rupture (principal); I50.30 Unspecified diastolic (congestive) heart failure; I35.8 Other nonrheumatic aortic valve disorders; I34.0 Nonrheumatic mitral (valve) insufficiency
CPT/HCPCS: 93306

== ENCOUNTER 2025-06-18 08:26 | Outpatient (CLI) | payer OTHER, SELFPAY ==
--- OUTSIDE RECORDS SUMMARY | 2004-01-25 06:00 | XMS_ITS | Continuity of Care Document ---
Author Organization [facility] Address [address] [place] [address] Phone Care Team Providers Care Sales Correspondence Clerk Name Role Phone Wagner ROBERTSMicha Unavailable Unavailable Advance Directives Directive Yes / No Effective Date File Name No Information Encounters Encounter Description Practice Location Reason(s) For Visit Diagnoses Date Provider Providers Copied on Encounter [facility], [address], [place], [place], [address], [place] tel:[phone] [facility] [place] No Information Wagner Louis. [address] [facility], [place], [address], [place]. tel: [phone] Family History Family Member Type Diagnosis Age At Onset No Information Payers Payer name Insurance type Covered libertarian ID Authoriza tion(s) No Information Social History [...]
--- OUTSIDE RECORDS SUMMARY | 2017-09-25 01:00 | XMS_ITS | Encounter Summary ---
Author Organization [facility] Healthcare Address [address] [place] [address] Care Team Providers Care Trimmer Tailer Name Role Phone Ken Best MD Primary Care Provider [phone] Reason for Visit * Diagnostic Imaging (Routine) - Closed Specialty Diagnoses / Procedures Referred By Contac t Referred To Contact Procedures Breast Imaging Screening Outside Reference Cezar Hull NP Phone: tel: fax: Referral ID Status Reason Start Date Expiration Date Visits Re quested Visits Authorized [id number] Closed 03/01/2023 03/30/2024 1 1 Encounter Details Date Type Department Care Team (Late st Contact Info) Description 09/25/2017 Hospital Encounter [facility] [place], [place] [address] Social History Tobacco Use Types Packs/Day Years Used Date Smoking Tobacco: Never Smokeless Tobacco: Never Alcohol Use Standard Drinks/Week Comments Yes 0 (1 standard drink = 0.6 oz pur e alcohol) Comments Unknown Sex and Gender Information Value Date Recorded Sex Assigned at Not on file Legal Sex Female 12:37 AM STOGY ROLLER Gender Identity Not on file Sexual Orientation Not on file documented as of this encounter Plan of Treatment Not on file documented as of this encounter Procedures Procedure Name Priority Date/Time Associated Diagnosis Comments BREAST IMAGING MG SCREENING OUTSIDE REFERENCE Routine 09/25/2017 12:00 AM STOGY ROLLER documented in this encounter Results * Breast Imaging Screening Outside Reference (09/25/2017 12:00 AM STOGY ROLLER) Impressions [facility] - 03/01/2023 8:40 AM CDT These images are for Reference purposes only and have not been reviewed by [facility] Radiology. There will be no report generated by a [facility] Radiologist. Narrative RAD_M[facility]MO[facility] - 03/01/2023 8:40 AM CDT EXAMINATION: Images For Reference Purposes Only Cezar Hull APPLICATIONS ADMINISTRATOR IMG MAMMO PROCEDURES Final Result [facility] documented in this encounter Visit Diagnoses Not on filedocumented in this encounter Care Teams Trimmer Tailer Relationship Specialty Start Date End Date Ken Best MD [address] [address] PCP - General 09/18/17 05/12/25 documented as of this encounter
--- OUTSIDE RECORDS SUMMARY | 2018-09-29 01:00 | XMS_ITS | Encounter Summary ---
Author Organization [facility] Healthcare Address [address] [place] [address] Care Team Providers Care Placer Miner Name Role Phone Ken Best MD Primary Care Provider [phone] [phone] Reason for Visit * Diagnostic Imaging (Routine) - Closed Specialty Diagnoses / Procedures Referred By Contac t Referred To Contact Procedures Breast Imaging Screening Outside Reference Cezar Hull NP Phone: tel: fax: Referral ID Status Reason Start Date Expiration Date Visits Re quested Visits Authorized [id number] Closed 03/01/2023 03/30/2024 1 1 Encounter Details Date Type Department Care Team (Late st Contact Info) Description 09/29/2018 Hospital Encounter [facility] [place], [place] [id number] Social History Tobacco Use Types Packs/Day Years Used Date Smoking Tobacco: Never Smokeless Tobacco: Never Alcohol Use Standard Drinks/Week Comments Yes 0 (1 standard drink = 0.6 oz pur e alcohol) Comments Unknown Sex and Gender Information Value Date Recorded Sex Assigned at Not on file Legal Sex Female 12:37 AM TRANSMITTER SUPERVISOR Gender Identity Not on file Sexual Orientation Not on file documented as of this encounter Plan of Treatment Not on file documented as of this encounter Procedures Procedure Name Priority Date/Time Associated Diagnosis Comments BREAST IMAGING MG SCREENING OUTSIDE REFERENCE Routine 09/29/2018 12:00 AM TRANSMITTER SUPERVISOR documented in this encounter Results * Breast Imaging Screening Outside Reference (09/29/2018 12:00 AM TRANSMITTER SUPERVISOR) Impressions [facility] - 03/01/2023 8:39 AM CDT These images are for Reference purposes only and have not been reviewed by [facility] Radiology. There will be no report generated by a [facility] Radiologist. Narrative [facility]MO[facility] - 03/01/2023 8:39 AM CDT EXAMINATION: Images For Reference Purposes Only us Cezar Hull CAP CUTTER IMG MAMMO PROCEDURES Final Result [facility] documented in this encounter Visit Diagnoses Not on filedocumented in this encounter Care Teams Placer Miner Relationship Specialty Start Date End Date Ken Best MD [address] [address] PCP - General 09/18/17 05/12/25 documented as of this encounter
--- OUTSIDE RECORDS SUMMARY | 2019-11-03 01:00 | XMS_ITS | Encounter Summary ---
Author Organization [facility] Healthcare Address [address] [place] [address] Care Team Providers Care Narcotics Investigator Name Role Phone Ken Best MD Primary Care Provider [phone] Reason for Visit * Diagnostic Imaging (Routine) - Closed Specialty Diagnoses / Procedures Referred By Contac t Referred To Contact Procedures Breast Imaging Screening Outside Reference Cezar Hull NP Phone: tel: fax: Referral ID Status Reason Start Date Expiration Date Visits Re quested Visits Authorized [id number] Closed 03/01/2023 03/30/2024 1 1 Encounter Details Date Type Department Care Team (Late st Contact Info) Description 11/03/2019 Hospital Encounter [facility]iology [facility] [address] [place] [phone] Social History Tobacco Use Types Packs/Day Years Used Date Smoking Tobacco: Never Smokeless Tobacco: Never Alcohol Use Standard Drinks/Week Comments Yes 0 (1 standard drink = 0.6 oz pur e alcohol) Comments Unknown Sex and Gender Information Value Date Recorded Sex Assigned at Not on file Legal Sex Female 12:37 AM THERAPIST PHYS Gender Identity Not on file Sexual Orientation Not on file documented as of this encounter Plan of Treatment Not on file documented as of this encounter Procedures Procedure Name Priority Date/Time Associated Diagnosis Comments BREAST IMAGING MG SCREENING OUTSIDE REFERENCE Routine 11/03/2019 12:00 AM THERAPIST PHYS documented in this encounter Results * Breast Imaging Screening Outside Reference (11/03/2019 12:00 AM THERAPIST PHYS) Impressions RAD[facility]MO[facility] - 03/01/2023 8:38 AM CDT These images are for Reference purposes only and have not been reviewed by [facility] Radiology. There will be no report generated by a [facility] Radiologist. Narrative RAD_MAMMO[facility] - 03/01/2023 8:38 AM CDT EXAMINATION: Images For Reference Purposes Only Cezar Hull PRODUCTION CREW SUPERVISOR IMG MAMMO PROCEDURES Final Result [facility] documented in this encounter Visit Diagnoses Not on filedocumented in this encounter Care Teams Narcotics Investigator Relationship Specialty Start Date End Date Ken Best MD [address] [address] PCP - General 09/18/17 05/12/25 documented as of this encounter
--- OUTSIDE RECORDS SUMMARY | 2020-11-08 01:00 | XMS_ITS | Encounter Summary ---
Author Organization [facility] Healthcare Address [address] [place] [address] Care Team Providers Care Corporate Treasurer Name Role Phone Ken Best MD Primary Care Provider [phone] Reason for Visit * Diagnostic Imaging (Routine) - Closed Specialty Diagnoses / Procedures Referred By Contac t Referred To Contact Procedures Breast Imaging Screening Outside Reference Cezar Hull NP Phone: tel: fax: Referral ID Status Reason Start Date Expiration Date Visits Re quested Visits Authorized [id number] Closed 03/01/2023 03/30/2024 1 1 Encounter Details Date Type Department Care Team (Late st Contact Info) Description 11/08/2020 Hospital Encounter [facility] Radiology [facility] [address] [place] [address] [phone] Social History Tobacco Use Types Packs/Day Years Used Date Smoking Tobacco: Never Smokeless Tobacco: Never Alcohol Use Standard Drinks/Week Comments Yes 0 (1 standard drink = 0.6 oz pur e alcohol) Comments Unknown Sex and Gender Information Value Date Recorded Sex Assigned at Not on file Legal Sex Female 12:37 AM PAINT LABORATORY TECHNICIAN Gender Identity Not on file Sexual Orientation Not on file documented as of this encounter Plan of Treatment Not on file documented as of this encounter Procedures Procedure Name Priority Date/Time Associated Diagnosis Comments BREAST IMAGING MG SCREENING OUTSIDE REFERENCE Routine 11/08/2020 12:00 AM PAINT LABORATORY TECHNICIAN documented in this encounter Results * Breast Imaging Screening Outside Reference (11/08/2020 12:00 AM PAINT LABORATORY TECHNICIAN) Impressions [facility] - 03/01/2023 8:38 AM CDT These images are for Reference purposes only and have not been reviewed by [facility] Radiology. There will be no report generated by a [facility] Radiologist. Narrative [facility] - 03/01/2023 8:38 AM CDT EXAMINATION: Images For Reference Purposes Only us Cezar Hull NP IMG MAMMO PROCEDURES Final Result [facility] documented in this encounter Visit Diagnoses Not on filedocumented in this encounter Care Teams Corporate Treasurer Relationship Specialty Start Date End Date Ken Best MD [address] [address] PCP - General 09/18/17 05/12/25 documented as of this encounter
--- NOTE | ~2025-06-18 | NM_ITS ---
EXAMINATION: NM pedro stress w perfusion DATE: 06/18/2025 15:14 INDICATION: Encounter for preprocedural cardiovascular exam TECHNIQUE: Rest images were obtained following intravenous administration of 9.7 mCi Tc99m tetrofosmin (Myoview). The patient was infused intravenously with Lexiscan (Regadenoson). Then, 32.0 mCi Tc99m tetrofosmin (Myoview) was administered intravenously, and stress images were obtained, initially in the supine position with repeat post stress imaging obtained in the prone position. Data was reconstructed into short axis and horizontal and vertical long axis SPECT images. Gated SPECT images were also obtained. COMPARISON: None. FINDINGS: There is likely breast attenuation artifact along the anterior half the heart on the post stress imaging obtained in the supine position which normalizes on prone imaging. There is no definite reversible or fixed perfusion abnormality to suggest ischemia or infarction. There is normal left ventricular chamber size, wall motion and ejection fraction. Left ventricular ejection fraction measures >70%. IMPRESSION: 1. Normal myocardial perfusion at rest and during stress. 2. Left ventricular ejection fraction measuring >70%. Reviewed, dictated and finalized at location A.
--- OUTSIDE RECORDS SUMMARY | 2025-06-18 08:30 | XMS_ITS | Clinical Summary ---
Author Organization [facility] Address [place] [address] Care Team Providers Care Game Warden Name Role Phone Benoit Jakcson MD Unavailable [phone] Nettie Bella NP Primary Care Provider Allergies Active Allergy Reactions Criticality Noted Date [...] - 05/19/2025 11:59 PM CDT Hospital Encounter [facility] [address] [place] [address] Unspecified injury of left lower leg, initial [...] on file Legal Sex Female 12:37 AM MEDIA BUYER Gender Identity Not on file Sexual Orientation Not on file Obstetrics History Last Filed Vital Signs Vital Sign Reading Time Taken Comments Blood Pressure 124/71 08/09/2021 2:53 PM MEDIA BUYER Pulse 77 08/09/2021 2:53 PM MEDIA BUYER Temperature - - Respiratory Rate 18 08/09/2021 2:53 PM MEDIA BUYER Oxygen Saturation 98% 08/09/2021 2:53 PM MEDIA BUYER Inhaled Oxygen Concentration - - Weight 75.8 [...] 06/24/2019, 04/17/2019 Medical Devices Implanted Type Area Supply Chain Development Manager Device Identifier Shelf Expiration Date Model / Serial / Lot [employer] Eviva 13cm Identifier Biopsy Site [id number] - [id number] Implanted:Qty: 1 on 03/07/2023 by Dara Valera MD at [facility] Left: Breast [employer] [id number] 08/22/2023 SMARK-PHIL VA-13 / / [id number] Procedures Procedure Name Priority Date/Time Associated Diagnosis [...] Haja Suarez M.D. MF: GREG Report ID: [id number] Reading Location: [id number] Procedure Note Haja Suarez MD - 05/19/2025 [...] Haja Suarez M.D. MF: GREG Report ID: [id number] Reading Location: [id number] Ovi Yarbrough MD IMG MRI PROCEDURES Final [...] Relevant to Health [place] [id number] [place] [id number] [facility] CHOICE [place] [address] [place] [address] [facility] CHOICE PLUS COMMERCIAL GENERIC * Guarantor: ELENA [id number] Account Type Relation to Patient Date of Phone Billing Address Workers Comp Employer [address] [place] [address] Care Teams Game Warden Relationship Specialty Start Date End Date Nettie Bella NP [facility] [place] [address] PCP - General Nurse Practitioner 05/13/25 Benoit Jackson MD [address] [id number] Referring Physician Obstetrics and Gynecology 02/14/23
--- OUTSIDE RECORDS SUMMARY | 2025-06-18 08:30 | XMS_ITS | Clinical Summary ---
Author Organization [facility] Address [address] [place] [address] Care Team Providers Care Machine Stone Polisher Name Role Phone Ken Best MD Primary Care Provider [phone] Allergies Active Allergy Reactions Criticality Noted Date [...] CENTER [facility] Care Teams Machine Stone Polisher Relationship Specialty Start Date End Date Ken Best MD [address] [place] [address] [address] [place] [address] PCP - General FAMILY PRACTICE 02/16/20
--- OUTSIDE RECORDS SUMMARY | 2025-06-18 08:30 | XMS_ITS | Clinical Summary ---
Author Organization [facility] Address [address] [place] [address] Care Team Providers Care Master [place] Name Role Phone Ken Best MD Primary Care Provider [phone] Source Comments [facility],non-owned Affiliates and Associated Physician Practices is amultiple site organization consisting of ambulatory clinics and hospital sitesin [place], [place], [place] and [place]. This disclosure is being madepursuant to the Care Everywhere program and may not contain all information available regarding this patient. Last updated 18.[facility] Allergies No known active allergies Medications * [...] (ULTRAM) 50 MG tabletIndicatio ns:Rheumatoid arthritis(714.0 ) ([facility]) Take 1 Tab by mouth 3 times daily. Take one or two pills with over the counter Tylenol for daily pain flare ups 270 3 9 Active Methotrexate (Anti-Rheumatic ) 2.5 MG TABSIndications :Rheumatoid arthritis(714.0 ) (HCC) Take 6 Tabs by mouth every 7 days before meal. 72 3 9 Active meloxicam (MOBIC) 7.5 MG tabletIndicatio ns:Rheumatoid arthritis(714.0 ) ([facility]) Take 1 Tab by mouth daily. 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 Not on file Not on file Last Filed Vital Signs Vital Sign Reading Time Taken Comments Blood Pressure 116/64 09/20/2017 11:25 AM SENIOR PRODUCT ENGINEER Pulse 101 09/20/2017 11:25 AM SENIOR PRODUCT ENGINEER Temperature 36.8 C (98.3 F) 09/20/2017 11:25 AM SENIOR PRODUCT ENGINEER Respiratory Rate 18 09/20/2017 11:25 AM SENIOR PRODUCT ENGINEER Oxygen Saturation 98% 09/20/2017 11:25 AM SENIOR PRODUCT ENGINEER Inhaled Oxygen Concentration - - Weight 78.9 kg (174 lb) 09/20/2017 11:25 AM SENIOR PRODUCT ENGINEER Height 154.9 cm (5' 1) 09/20/2017 11:25 AM SENIOR PRODUCT ENGINEER Body Mass Index 32.88 09/20/2017 11:25 AM SENIOR PRODUCT ENGINEER Plan of Treatment Health Maintenance Due Date [...] PM CDT Narrative Resulting Agency Comment [facility] [address] [facility] [id number] us Saravanan Escobedo MD LAB - CHEMISTRY ORDERABLES Nereyda pham Result [facility] ACCOUNT BILL [address] [place] [address] from Last 3 Months or Most Recently Relevant to Health Maintenance [facility] Care Teams Master [place] Relationship Specialty Start Date End Date Ken Best MD PCP - General 01/06/09
--- NOTE | 2025-06-18 08:35 | EST_ITS ---
Patient Info Name: Faye Lennon Age: 59 years : 1965 Gender: Female Ht: 61 in Wt: 180 lbs BSA: 1.91 m2 Exam Date: 06/18/2025 8:35 AM Patient Status: unknown Admit Date: 06/18/2025 Exam Type: CA stress pedro w NM Staff Referring Physician: Ander Triplett DO Attending Provider: Ander Triplett DO Summary 1. 1. Negative lexiscan stress test for ischemic ST changes by ECG criteria. 2. 2. Baseline hypertension. 3. 3. Nuclear scan to follow and will be reported separately. Please correlate with it. 4. 4. Patient informed of the above results. Protocol: Lexiscan Stress ECG Details Stage: REST Duration (min): 0 min : 58 sec HR (bpm): 75 SBP (mmHg): 141 DBP (mmHg): 96 Stage: REST Duration (min): 4 min : 35 sec HR (bpm): 80 SBP (mmHg): 141 DBP (mmHg): 96 Stage: STAGE 1 Duration (min): 1 min : 0 sec HR (bpm): 97 SBP (mmHg): 139 DBP (mmHg): 97 Stage: RECOVERY Duration (min): 1 min : 0 sec HR (bpm): 101 SBP (mmHg): 139 DBP (mmHg): 97 Stage: RECOVERY Duration (min): 2 min : 0 sec HR (bpm): 91 SBP (mmHg): 139 DBP (mmHg): 97 Stage: RECOVERY Duration (min): 3 min : 0 sec HR (bpm): 90 SBP (mmHg): 152 DBP (mmHg): 96 Stage: RECOVERY Duration (min): 4 min : 0 sec HR (bpm): 89 SBP (mmHg): 152 DBP (mmHg): 96 Stage: RECOVERY Duration (min): 5 min : 0 sec HR (bpm): 83 SBP (mmHg): 158 DBP (mmHg): 95 Stage: RECOVERY Duration (min): 5 min : 2 sec HR (bpm): 84 SBP (mmHg): 158 DBP (mmHg): 95 Rest HR: 80 bpm Peak HR: 104 bpm Rest Sys BP: 141 mmHg Peak Sys BP: 158 mmHg Max Pred HR: 160 bpm % Max Pred HR: 65 % Target HR: 136 bpm Max RPP: 16,432 bpm*mmHg Termination Reason: Completed protocol Cardiac Symptoms: Shortness of breath Total Time: 1 min : 0 sec Rest Stack BP: 96 mmHg Peak Stack BP: 95 mmHg Total Dose: 0.4 mg Resting ECG Sinus rhythm. Stress ECG No ST changes. Arrhythmias None. Report Signatures
== END 2025-06-18 08:27 | disposition home or self-care (01) ==
PROVIDERS: PCP Nurse Practitioner Adult Health; Visit Provider Internal Medicine Cardiovascular Disease
DX: Z01.810 Encounter for preprocedural cardiovascular examination (principal); I35.8 Other nonrheumatic aortic valve disorders; I08.0 Rheumatic disorders of both mitral and aortic valves
CPT/HCPCS: 78452; 93017; A9502; J2785

== ENCOUNTER 2025-06-25 01:34 | Day surgery (SDC) | payer OTHER, SELFPAY ==
[2025-06-16 11:54] VITALS: BMI 34.0
--- NOTE | 2025-06-16 12:04 | PC.NURSE ---
Report to the Outpatient Waiting Room, entrance under the green pavilion located off [facility], at time _0700_ on date _[id number]_. Planned Procedure Time: _0900_.? Time changes happen often and if your time is changed the preop area will call you the afternoon before. - You and your visitor will be asked to self-screen and do not enter if you have any COVID symptoms. Please call surgeon if you need to reschedule. - A mask is optional within the hospital at this time. Patients may have clear liquids (water, carbonated beverages, clear teas, apple juice) until 3 hours prior to surgery with a maximum of 20 ounces. - No food from midnight until time of surgery and no smoking, or chewing tobacco (or any form of nicotine). No chewing gum, candy or mints. Take only the following medications with a SIP of water on the morning of surgery: __Flonase, Gabapentin, Carvidilol, Levothyroxine, Hydroxyzine, Venlafaxine and if needed Tramadol.__ DO NOT STOP ANY OF YOUR OTHER PRESCRIPTION MEDICATIONS PRIOR TO SURGERY EXCEPT THE FOLLOWING Hold all vitamins and supplements for 3 days per anesthesiologist. Medications to discontinue per physician Please check with Dr Yarbrough's office if need to hold Diclofenac. Date to take last dose Please no make-up, nail congolese, hairspray, perfume, deodorant, or body powder the day of surgery.? No jewelry (including any body piercings) or valuables the day of surgery, leave them at home.? Please take a shower or bath the night before, or the morning of, surgery with an antibacterial soap.? Wear comfortable, loose fitting clothing.? - Jewelry must be removed prior to entering the operating room.? Rings and piercings that are not removed may be cut off. - The hospital will not accept responsibility for valuables.? - Please leave all valuables, including medications, at home the day of surgery. If you are going home after surgery, a licensed xm1 tank driver must drive you home.? - NO public transportation without another adult if you receive anesthesia. - We recommend that an adult stay with you for 24 hours following discharge. - We also recommend that you do not drive, make important decision, drink alcoholic beverages, or take any drugs that were not prescribed by your health care provider for at least 24 hours after your discharge time. Follow any additional instructions given to you from your surgeon. Telephone instructions given to __Faye__and asked if any additional questions and then verbalized understanding. Patient advised to call surgeon office or pre surgery nurse liaison [phone] if any additional questions.
[2025-06-25] VITALS (13 sets, daily range): BP systolic 102–151; BP diastolic 74–92; PULSE 70–82; RESP 12–16; TEMP 36.5–36.6; O2SAT 92–100
--- NOTE | 2025-06-25 07:26 | WPDHPUPDATE1 ---
History and Physical Update Update Date/Time: 06/25/25 07:26 History and Physical has been reviewed, including an updated exam of the patient. There are NO changes in the patient's condition. Risks, benefits, and alternatives have been discussed and questions answered. Patient agrees to proceed with procedure.
[2025-06-25] MEDS: LACTATED RINGERS 1,000 ML 30 ML IV CONT ×2 (08:15→10:32)
[2025-06-25] MEDS: ACETAMINOPHEN 500 MG TABLET 1000 MG PO (08:15)
[2025-06-25] MEDS: CELECOXIB 200 MG CAPSULE PO (08:15)
--- NOTE | 2025-06-25 09:08 | WPDANESEPPF ---
Anes - Initial Pre Proc Eval Procedure: Operation Date: 06/25/25 09:00 Proposed Procedures p Left Knee Arthroscopy - Ovi Yarbrough MD Date/Time: 06/25/25 09:08 Surgeon: Ovi Yarbrough MD Pre Op Diagnosis: left knee medial meniscus tear Patient Data Age: 59 Gender: F Height: 1.55 m Weight: 81.6 kg Allergies Allergy/AdvReac Type Severity Reaction Status Date / Time hydroxychloroquine Allergy Unknown Other Verified 06/16/25 11:51 quinapril Allergy Unknown LIP Verified 06/16/25 11:51 SWELLING Methotrexate Allergy Intermediate Hives Uncoded 06/10/25 12:13 Home Medications ?Medication ?Instructions ?Recorded ?Confirmed ?Type fluticasone propionate 50 1 - 2 spray intranasal BID #48 mL 01/02/24 06/16/25 Rx mcg/actuation nasal spray,suspension (Flonase Allergy Relief) diclofenac sodium 75 mg 75 mg PO BID PRN pain 05/06/24 06/16/25 History tablet,delayed release losartan 100 mg tablet 100 mg PO DAILY #90 tabs 12/07/24 06/16/25 Rx tramadol 50 mg tablet 50 mg PO TID PRN pain 12/07/24 06/16/25 History gabapentin 300 mg capsule 300 mg PO .COMPLEX #270 caps 12/26/24 06/16/25 Rx methotrexate (PF) 25 mg/0.5 mL 25 mg subcut WEEKLY 12/26/24 06/16/25 History subcutaneous auto-injector carvedilol 3.125 mg tablet 3.125 mg PO BID #180 tabs 02/04/25 06/16/25 Rx estradiol 1 mg tablet 1 mg PO DAILY #90 tabs 02/04/25 06/16/25 Rx levothyroxine 75 mcg tablet 75 mcg PO DAILY #90 tabs 02/04/25 06/16/25 Rx metformin 500 mg tablet,extended 500 mg PO BID #180 tabs 02/04/25 06/16/25 Rx release 24 hr omeprazole 20 mg capsule,delayed 20 mg PO DAILY #90 caps 02/04/25 06/16/25 Rx release terbinafine HCl 250 mg tablet 250 mg PO DAILY #90 tabs 02/04/25 06/16/25 Rx folic acid 1 mg tablet 1 mg PO DAILY 04/28/25 06/16/25 History hydroxyzine HCl 50 mg tablet 50 mg PO TID 04/28/25 06/16/25 History sarilumab 150 mg/1.14 mL 150 mg subcut MONTHLY 04/28/25 06/16/25 History subcutaneous pen injector (Kevzara) venlafaxine 150 mg 150 mg PO DAILY #90 caps 05/04/25 06/16/25 Rx capsule,extended release 24 hr semaglutide 0.25 mg or 0.5 mg (2 0.5 mg (0.736 mL) subcut WEEKLY #3 05/25/25 06/16/25 Rx mg/3 mL) subcutaneous pen injector mL (Ozempic) chlorhexidine gluconate 4 % 1 applic topical ONCE #237 mL 06/18/25 Rx topical liquid (Hibiclens) hydrocodone 5 mg-acetaminophen 325 1 tablet PO Q12H PRN pain #20 tabs 06/25/25 Rx mg tablet Laboratory Tests 06/25/25 08:08 POC Capillary Glucose 84 mg/dl (65-105) Patient hx anesthesia problems: none Family hx anesthesia problems: none Results Review: All pre-operative results and documents have been reviewed as part of the pre-operative evaluation. [facility] Past Medical History Medical History Subcutaneous rheumatoid nodule of both feet Triceps tendon rupture Migraine GERD (gastroesophageal reflux disease) Diabetes Anxiety Nail fungal infection bilateral great toes History of PCOS COVID-19 (03/21/22) 4th episode of COVID March,. 3rd episode with mild symptoms and fully vaccinated Allergic reaction to drug (~10/17/24) hives with oral methotrexate. Tolerating injectable methotrexate Epistaxis Pre-diabetes Elevated liver enzymes (06/15/23) AST elevated at 99, increased from 20, ALT elevated at 135, increased from 27 with recent labs 06/15/2023. GGT 36, AST 29, ALT 83 on 07/06/2023. Osteopenia after menopause (12/26/22) DEXA scan 12/26/2022 with T-score -0.5 at the spine, -1.3 left hip, 0.9 right hip. Osteopenia of the left hip. Screening for diabetic retinopathy (09/27/22) no diabetic retinopathy on 09/27/2022. Migraine without aura and without status migrainosus, not intractable Acute low back pain (05/10/21) x-ray of the lumbar spine on 05/15/2021 revealed osteopenia, moderate to severe degenerative disc disease at L5-S1 and moderate disease at L2-L3. Gastritis (03/30/21) gastritis and gastric polyps on EGD on 03/30/2021 Anemia COVID-19 (09/09/21) COVID symptoms 09/09/2021 with positive home test 09/15/2021. Patient also had COVID 08/03/2020 Exposure to COVID-19 virus Essential (primary) hypertension Hyperkalemia Potassium normal at 3.9 on 09/25/2022. Breast cancer screening by mammogram mammogram normal on 11/13/2021. new asymmetry left breast 12/26/2022. Mammogram and breast ultrasound 11/18/24. Actinic keratosis Surgical History Surgical History History of hysterectomy Hx of rotator cuff surgery Hx of esophagogastroduodenoscopy Hx of colonoscopy Family History Family History Grandparent Family history of cardiovascular disease, Onset Age: 44 Carcinoma of colon, Onset Age: 84 Family history of pancreatic cancer, Onset Age: 75 Cerebrovascular accident Father Acute myocardial infarction, Onset Age: 48 Alcoholism Hypertension Heart disease Mother Family history of Alzheimer's disease, Onset Age: 72 Diabetes mellitus Hypertension Heart disease Sibling Diabetes mellitus Heart disease Other Diabetes mellitus Grandparent Diabetes mellitus Heart disease Social History Social History Smoking status: Never smoker Alcohol intake: current Alcohol use details: 1-4 drinks a week Substance use: never Substance use type: does not use Do You Feel Safe in your Home?: Yes Lack of Transportation: No Lack of Food: Never True Current Housing: I Have Housing Concerned About Future Housing: No Difficulty Paying Gas/Electric Bills: No Difficulty Paying for Meds: No Currently Unemployed: No Education: High School Diploma/GED Difficulty w/ Childcare or Family Care: No Living arrangements: with family Spiritual care concerns: No Anes - Eval Final PreProcedure Day of Procedure 06/25/25 09:08 Patient weight: obese Lungs: normal air movement Airway: Mallampati scale class II Neurological: alert and oriented Last oral intake: >/= 8 hours ASA classification: III Emergent: no Anesthetic plan: proceed Anesthesia type and monitoring: general LMA and standard monitoring Results Review: All pre-operative results and documents have been reviewed as part of the pre-operative evaluation. BMI 34, DM fsbs 84, migranes, ALBARADO. ECHO 2020 w LVEF 60%, mild AI. Informed Consent: The patient's anesthetic plan and its attendant risks and benefits were discussed with the patient/family/POA. Questions were solicited and answers provided to the satisfaction of the patient/family/POA.
[2025-06-25] MEDS: ceFAZolin 2 GM in SODIUM CHLORIDE 0.9% IV 50 ML 100 ML IVPB (09:34)
--- NOTE | 2025-06-25 10:30 | W.PM.PROC2 ---
Procedure Note - Detailed Date of Procedure 06/25/25 Pre-op Diagnosis left knee medial meniscus tear Post-op Diagnosis Same Procedure Performed LEFT KNEE SCOPE Surgeon Ovi Yarbrough MD Anesthesia General Description of Procedure PATIENT WAS TAKEN TO THE OR. LEFT LEG WAS PREPPED AND DRAPED STERILE. TROCARS WERE PLACED IN THE USUAL FASHION. CAMERA WAS INTRODUCED. THERE WAS CHONDROMALACIA TO THE PATELLA FEMORAL JOINT. THERE WAS A LOT OF SYNOVITIS IN ALL COMPARTMENTS. THE MEDIAL COMPARTMENT SHOWED CHONDROMALACIA TO THE MEDIAL FEMORAL CONDYLE. A SHAVER WAS USED TO PREFORM A CHONDROPLASTY. THERE WAS A COMPLEX MEDIAL MENISCUS TEAR AT THE MENISCAL ROOT. THE TEAR WAS RESECTED WITH A BITER AND A SHAVER DOWN TO A SMOOTH BASE. THE ACL WAS INTACT. THE LATERAL MENISCUS HAD A SMALL TEAR AND WAS RESECTED AT THE MID SUBSTANCE. THE LATERAL COMPARTMENT HAD GRADE 2 CHONDROMALACIA. CHONDROPLASTY WAS PREFORMED. A SYNOVECTOMY WAS PREFORMED WELL. THE PATELLO FEMORAL JOINT UNDERWENT CHONDROPLASTY. THERE WAS GRADE 3 AND 4 CHONDROMALACIA IN PART OF THE TROCHLEA AND PART OF THE PATELLA. SYNOVECTOMY WAS PREFORMED IN THE SUPERIOR MEDIAL COMPARTMENT. THE WOUNDS WERE APPROXIMATED WITH 4.0 NYLON. STERILE DRESSING WAS APPLIED. PATIENT WAS EXTUBATED. Estimated Blood Loss -5.0 Complications No immediate complications Condition Stable Disposition PACU
[2025-06-25] MEDS: fentaNYL CITRATE INJ (*CRX) 100 MCG/2 ML VIAL 25 MCG IV PUSH ×3 (11:02→11:29)
[2025-06-25] MEDS: oxyCODONE HCL (*CRX) 5 MG TAB IR PO (12:29)
== END 2025-06-25 13:30 | disposition home or self-care (01) ==
PROVIDERS: PCP Nurse Practitioner Adult Health; Visit Provider Orthopaedic Surgery
PROC: (CPT 29870; principal; 2025-06-25 09:00)
DX: S83.232A Complex tear of medial meniscus, current injury, left knee, initial encounter (principal); S83.282A Other tear of lateral meniscus, current injury, left knee, initial encounter; M94.262 Chondromalacia, left knee; M65.862 Other synovitis and tenosynovitis, left lower leg; Y93.01 Activity, walking, marching and hiking; K21.9 Gastro-esophageal reflux disease without esophagitis; D64.9 Anemia, unspecified; I10 Essential (primary) hypertension; E11.9 Type 2 diabetes mellitus without complications; F41.9 Anxiety disorder, unspecified; E28.2 Polycystic ovarian syndrome; M85.88 Other specified disorders of bone density and structure, other site; K75.81 Nonalcoholic steatohepatitis (NASH); L57.0 Actinic keratosis; G43.009 Migraine without aura, not intractable, without status migrainosus; Z79.891 Long term (current) use of opiate analgesic; Z79.84 Long term (current) use of oral hypoglycemic drugs; Z79.85 Long-term (current) use of injectable non-insulin antidiabetic drugs; Z98.890 Other specified postprocedural states; Z80.0 Family history of malignant neoplasm of digestive organs; Z82.49 Family history of ischemic heart disease and other diseases of the circulatory system
CPT/HCPCS: 29880; 82948; J0690; A9270; J1100; J2003; J2250; J2405; J2704; J3010; J7120

== ENCOUNTER 2025-08-10 13:48 | Outpatient (CLI) | payer OTHER, SELFPAY ==
--- OUTSIDE RECORDS SUMMARY | 2004-01-25 05:00 | XMS_ITS | Continuity of Care Document ---
Author Organization [facility] Address [address] [facility] [address] [place] [address] Phone Care Team Providers Care Java Grails Developer Name Role Phone Wagner ROBERTSMicha Unavailable Unavailable Advance Directives Directive Yes / No Effective Date File Name No Information Encounters Encounter Description Practice Location Reason(s) For Visit Diagnoses Date Provider Providers Copied on Encounter [facility], [address], [place], [place], [id number], [place] tel:[phone] [facility] [place] No Information Wagner Louis. [address] [facility], [place], [address], [place]. tel: [phone] Family History Family Member Type Diagnosis Age [...]
--- OUTSIDE RECORDS SUMMARY | 2017-09-25 | XMS_ITS | Encounter Summary ---
Author Organization [facility] Healthcare Address [address] [place] [address] Care Team Providers Care Inside Sales Account Executive Name Role Phone Ken Best MD Primary Care Provider [phone] Reason for Visit * Diagnostic Imaging (Routine) - Closed Specialty Diagnoses / Procedures Referred By Contac t Referred To Contact Procedures Breast Imaging Screening Outside Reference Cezar Hull NP Phone: tel: fax: Referral ID Status Reason Start Date Expiration Date Visits Re quested Visits Authorized [id number] Closed 03/01/2023 03/30/2024 1 1 Encounter Details Date Type Department Care Team (Late st Contact Info) Description 09/25/2017 Hospital Encounter [facility]) [address] [place] [address] Social History Tobacco Use Types Packs/Day Years Used Date Smoking Tobacco: Never Smokeless Tobacco: Never Alcohol Use Standard Drinks/Week Comments Yes 0 (1 standard drink = 0.6 oz pur e alcohol) Comments Unknown Sex and Gender Information Value Date Recorded Sex Assigned at Not on file Legal Sex Female 12:37 AM CARE INFORMATION ASSOCIATE Gender Identity Not on file Sexual Orientation Not on file documented as of this encounter Functional Status documented as of this encounter Plan of Treatment Not on file documented as of this encounter Procedures Procedure Name Priority Date/Time Associated Diagnosis Comments BREAST IMAGING MG SCREENING OUTSIDE REFERENCE Routine 09/25/2017 12:00 AM CARE INFORMATION ASSOCIATE documented in this encounter Results * Breast Imaging Screening Outside Reference (09/25/2017 12:00 AM CARE INFORMATION ASSOCIATE) Impressions [facility] - 03/01/2023 8:40 AM CDT These images are for Reference purposes only and have not been reviewed by [facility]. There will be no report generated by a [facility] Radiologist. Narrative [facility] - 03/01/2023 8:40 AM CDT EXAMINATION: Images For Reference Purposes Only us Cezar Hull FLIGHT STEWARD IMG MAMMO PROCEDURES Final Result [facility] documented in this encounter Visit Diagnoses Not on filedocumented in this encounter Care Teams Inside Sales Account Executive Relationship Specialty Start Date End Date Ken Best MD [address] [address] PCP - General 09/18/17 05/12/25 documented as of this encounter
--- OUTSIDE RECORDS SUMMARY | 2018-09-29 | XMS_ITS | Encounter Summary ---
Author Organization [facility] Healthcare Address [address] [place] [address] Care Team Providers Care Plant Sciences Professor Name Role Phone Ken Best MD Primary Care Provider [phone] Reason for Visit * Diagnostic Imaging (Routine) - Closed Specialty Diagnoses / Procedures Referred By Contac t Referred To Contact Procedures Breast Imaging Screening Outside Reference Cezar Hull NP Phone: tel: fax: Referral ID Status Reason Start Date Expiration Date Visits Re quested Visits Authorized [id number] Closed 03/01/2023 03/30/2024 1 1 Encounter Details Date Type Department Care Team (Late st Contact Info) Description 09/29/2018 Hospital Encounter [facility] [address] [place] [address] Social History Tobacco Use Types Packs/Day Years Used Date Smoking Tobacco: Never Smokeless Tobacco: Never Alcohol Use Standard Drinks/Week Comments Yes 0 (1 standard drink = 0.6 oz pur e alcohol) Comments Unknown Sex and Gender Information Value Date Recorded Sex Assigned at Not on file Legal Sex Female 12:37 AM BUTT WELDER Gender Identity Not on file Sexual Orientation Not on file documented as of this encounter Functional Status documented as of this encounter Plan of Treatment Not on file documented as of this encounter Procedures Procedure Name Priority Date/Time Associated Diagnosis Comments BREAST IMAGING MG SCREENING OUTSIDE REFERENCE Routine 09/29/2018 12:00 AM BUTT WELDER documented in this encounter Results * Breast Imaging Screening Outside Reference (09/29/2018 12:00 AM BUTT WELDER) Impressions RAD_[facility]MO[facility] - 03/01/2023 8:39 AM CDT These images are for Reference purposes only and have not been reviewed by [facility] Radiology. There will be no report generated by a [facility] Radiologist. Narrative RAD_M[facility]MO[facility] - 03/01/2023 8:39 AM CDT EXAMINATION: Images For Reference Purposes Only us Cezar Hull REPLENISHMENT ASSOCIATE IMG MAMMO PROCEDURES Final Result [facility] documented in this encounter Visit Diagnoses Not on filedocumented in this encounter Care Teams Plant Sciences Professor Relationship Specialty Start Date End Date eKn Best MD [address] [address] PCP - General 09/18/17 05/12/25 documented as of this encounter
--- OUTSIDE RECORDS SUMMARY | 2019-11-03 | XMS_ITS | Encounter Summary ---
Author Organization [facility] Healthcare Address [address] [place] [address] Care Team Providers Care Flight Communications Operator Name Role Phone Ken Best MD Primary Care Provider [phone] [phone] Reason for Visit * Diagnostic Imaging (Routine) - Closed Specialty Diagnoses / Procedures Referred By Contac t Referred To Contact Procedures Breast Imaging Screening Outside Reference Cezar Hull NP Phone: tel: fax: Referral ID Status Reason Start Date Expiration Date Visits Re quested Visits Authorized [id number] Closed 03/01/2023 03/30/2024 1 1 Encounter Details Date Type Department Care Team (Late st Contact Info) Description 11/03/2019 Hospital Encounter [facility] [address] [place] [phone] Social History Tobacco Use Types Packs/Day Years Used Date Smoking Tobacco: Never Smokeless Tobacco: Never Alcohol Use Standard Drinks/Week Comments Yes 0 (1 standard drink = 0.6 oz pur e alcohol) Comments Unknown Sex and Gender Information Value Date Recorded Sex Assigned at Not on file Legal Sex Female 12:37 AM GRAPHICS COORDINATOR Gender Identity Not on file Sexual Orientation Not on file documented as of this encounter Functional Status documented as of this encounter Plan of Treatment Not on file documented as of this encounter Procedures Procedure Name Priority Date/Time Associated Diagnosis Comments BREAST IMAGING MG SCREENING OUTSIDE REFERENCE Routine 11/03/2019 12:00 AM GRAPHICS COORDINATOR documented in this encounter Results * Breast Imaging Screening Outside Reference (11/03/2019 12:00 AM GRAPHICS COORDINATOR) Impressions [facility] - 03/01/2023 8:38 AM CDT These images are for Reference purposes only and have not been reviewed by [facility] Radiology. There will be no report generated by a [facility] Radiologist. Narrative RAD_MAMMO[facility] - 03/01/2023 8:38 AM CDT EXAMINATION: Images For Reference Purposes Only us Cezar Hull TOWER OPERATOR IMG MAMMO PROCEDURES Final Result [facility] documented in this encounter Visit Diagnoses Not on filedocumented in this encounter Care Teams Flight Communications Operator Relationship Specialty Start Date End Date Ken Best MD [address] [address] PCP - General 09/18/17 05/12/25 documented as of this encounter
--- OUTSIDE RECORDS SUMMARY | 2020-11-08 | XMS_ITS | Encounter Summary ---
Author Organization [facility] Healthcare Address [address] [place] [address] Care Team Providers Care Silverware Etcher Name Role Phone Ken Best MD Primary Care Provider [phone] Reason for Visit * Diagnostic Imaging (Routine) - Closed Specialty Diagnoses / Procedures Referred By Contac t Referred To Contact Procedures Breast Imaging Screening Outside Reference Cezar Hull NP Phone: tel: fax: Referral ID Status Reason Start Date Expiration Date Visits Re quested Visits Authorized [id number] Closed 03/01/2023 03/30/2024 1 1 Encounter Details Date Type Department Care Team (Late st Contact Info) Description 11/08/2020 Hospital Encounter [facility] [place] [address] Social History Tobacco Use Types Packs/Day Years Used Date Smoking Tobacco: Never Smokeless Tobacco: Never Alcohol Use Standard Drinks/Week Comments Yes 0 (1 standard drink = 0.6 oz pur e alcohol) Comments Unknown Sex and Gender Information Value Date Recorded Sex Assigned at Not on file Legal Sex Female 12:37 AM EXECUTIVE ACCOUNT MANAGER Gender Identity Not on file Sexual Orientation Not on file documented as of this encounter Functional Status documented as of this encounter Plan of Treatment Not on file documented as of this encounter Procedures Procedure Name Priority Date/Time Associated Diagnosis Comments BREAST IMAGING MG SCREENING OUTSIDE REFERENCE Routine 11/08/2020 12:00 AM EXECUTIVE ACCOUNT MANAGER documented in this encounter Results * Breast Imaging Screening Outside Reference (11/08/2020 12:00 AM EXECUTIVE ACCOUNT MANAGER) Impressions [facility] - 03/01/2023 8:38 AM CDT These images are for Reference purposes only and have not been reviewed by [facility] Radiology. There will be no report generated by a [facility] Radiologist. Narrative [facility] - 03/01/2023 8:38 AM CDT EXAMINATION: Images For Reference Purposes Only us Cezar Hull NP IMG MAMMO PROCEDURES Final Result [facility] documented in this encounter Visit Diagnoses Not on filedocumented in this encounter Care Teams Silverware Etcher Relationship Specialty Start Date End Date Ken Best MD [address] [address] PCP - General 09/18/17 05/12/25 documented as of this encounter
--- NOTE | ~2025-08-10 | XR_ITS ---
EXAMINATION: XR foot LT min 3V, 08/10/2025 14:00 DIRECTOR OF DIGITAL TECHNOLOGY HISTORY: R22.42 - Localized swelling, mass and lump, left lower limb COMPARISON: No comparisons available. Findings: No acute fracture or malalignment. No significant degenerative changes. Soft tissues unremarkable. Impression: No acute fracture or malalignment. Reviewed, dictated and finalized at location P. CTOR OF DIGITAL TECHNOLOGY Impression: No acute fracture or malalignment.
--- OUTSIDE RECORDS SUMMARY | 2025-08-10 13:56 | XMS_ITS | Clinical Summary ---
Author Organization [facility] Address [address] [place] [address] Care Team Providers Care Electromechanical Engineer Name Role Phone Ken Best MD Primary Care Provider [phone] Allergies Active Allergy Reactions Criticality Noted Date [...] Colonoscopy (10 Years) 1964 Annual Physical 12/01/1967 COVID-19 Vaccine (#1) 1969 Hepatitis C 1982 DTaP, Tdap and Td Vaccines ( 1 - Tdap) 12/01/1983 Cervical Cancer Screening Pa p with HPV Testing (Age 30 to 64) Every 5 Years 1994 Cervical Cancer Screening wi th HPV 1994 Mammogram Screening 2004 Pneumococcal Vaccine: 50+ Years (2 of 2 - PCV20 or PCV21) 04/17/2020 04/17/2019 RSV Immunization or 60+ Years (1 - Risk 60-74 years 1-dose series) 2024 Influenza Adult (#1) 2025 07/08/2017, 07/05/2016 Zoster Vaccines Completed 06/24/2019, 04/17/2019 Hepatitis A Vaccines Aged Out No long er eligible based on patient's age to complete this topic Meningococcal B Vaccine Aged Out No l onger eligible based on patient's age to complete this topic Meningococcal Vaccine Aged Out No eden paty eligible based on patient's age to complete this topic RSV Immunizations Under 20 Months Aged Out No longer eligible b ased on patient's age to complete this topic [place] [address] [email or web address] [facility] [email or web address] [facility] Care Teams Electromechanical Engineer Relationship Specialty Start Date End Date Ken Best MD [address] [place] [address] [address] [place] [id number] PCP - General FAMILY PRACTICE 02/16/20
--- OUTSIDE RECORDS SUMMARY | 2025-08-10 13:56 | XMS_ITS | Clinical Summary ---
Author Organization [facility] Address [address] [place] [address] Care Team Providers Care Main Line Station Engineer Name Role Phone Ken Best MD Primary Care Provider [phone] Source Comments [facility],non-owned Affiliates and Associated Physician Practices is amultiple site organization consisting of ambulatory clinics and hospital sitesin [place], [place], [place] and [place]. This disclosure is being madepursuant to the Care Everywhere program and may not contain all information available regarding this patient. Last updated 18.[facility] Allergies No known active allergies Medications * [...] MG tabletIndicatio ns:Rheumatoid arthritis(714.0 ) ([facility]) Take 1 Tab by mouth 3 times daily. Take one or two pills with over the counter Tylenol for daily pain flare ups 270 3 9 Active Methotrexate (Anti-Rheumatic ) 2.5 MG TABSIndications :Rheumatoid arthritis(714.0 ) (HCC) Take 6 Tabs by mouth every 7 days before meal. 72 3 9 Active meloxicam (MOBIC) 7.5 MG tabletIndicatio ns:Rheumatoid arthritis(714.0 ) ([facility]) Take 1 Tab by mouth daily. 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 Not on file Not on file Not on file Last Filed Vital Signs Vital Sign Reading Time Taken Comments Blood Pressure 116/64 09/20/2017 11:25 AM MANUFACTURING CLERK Pulse 101 09/20/2017 11:25 AM MANUFACTURING CLERK Temperature 36.8 C (98.3 F) 09/20/2017 11:25 AM MANUFACTURING CLERK Respiratory Rate 18 09/20/2017 11:25 AM MANUFACTURING CLERK Oxygen Saturation 98% 09/20/2017 11:25 AM MANUFACTURING CLERK Inhaled Oxygen Concentration - - Weight 78.9 kg (174 lb) 09/20/2017 11:25 AM MANUFACTURING CLERK Height 154.9 cm (5' 1) 09/20/2017 11:25 AM MANUFACTURING CLERK Body Mass Index 32.88 09/20/2017 11:25 AM MANUFACTURING CLERK Plan of Treatment Health Maintenance Due Date [...] PM CDT Narrative Resulting Agency Comment [facility] [address] [facility] [id number] us Saravanan Escobedo MD LAB - CHEMISTRY ORDERABLES Nereyda pham Result [facility] ACCOUNT BILL [address] [place] [address] from Last 3 Months or Most Recently Relevant to Health Maintenance [facility] Care Teams Main Line Station Engineer Relationship Specialty Start Date End Date Ken Best MD PCP - General 01/06/09
--- OUTSIDE RECORDS SUMMARY | 2025-08-10 13:56 | XMS_ITS | Clinical Summary ---
Author Organization [facility] Address [facility] [place] [address] Care Team Providers Care Paper Cutter Name Role Phone Benoit Jackson MD Unavailable [phone] Nettie Bella NP Primary Care Provider [phone] Allergies Active Allergy Reactions Criticality Noted Date [...] - 05/19/2025 11:59 PM CDT Hospital Encounter [facility] [address] [place] [address] Unspecified injury of left lower leg, initial [...] on file Legal Sex Female 12:37 AM INJECTION MOLD TOOLING TECHNICIAN Gender Identity Not on file Sexual Orientation Not on file Last Filed Vital Signs Vital Sign Reading Time Taken Comments Blood Pressure 124/71 08/09/2021 2:53 PM INJECTION MOLD TOOLING TECHNICIAN Pulse 77 08/09/2021 2:53 PM INJECTION MOLD TOOLING TECHNICIAN Temperature - - Respiratory Rate 18 08/09/2021 2:53 PM INJECTION MOLD TOOLING TECHNICIAN Oxygen Saturation 98% 08/09/2021 2:53 PM INJECTION MOLD TOOLING TECHNICIAN Inhaled Oxygen Concentration - - Weight 75.8 [...] 06/24/2019, 04/17/2019 Medical Devices Implanted Type Area Road Monkey Device Identifier Shelf Expiration Date Model / Serial / Lot [employer] Partnership Eviva 13cm Identifier Biopsy Site [id number] - [id number] Implanted:Qty: 1 on 03/07/2023 by Dara Valera MD at [facility] Left: Breast [employer] Partnership [id number] 08/22/2023 SMARK-PHIL VA-13 / / [id number] Procedures Procedure Name Priority Date/Time Associated Diagnosis [...] Haja Suarez M.D. MF: GREG Report ID: [id number] Reading Location: [id number] Procedure Note Haja Suarez MD - 05/19/2025 [...] Haja Suarez M.D. MF: GREG Report ID: [id number] Reading Location: [id number] Ovi Yarbrough MD IMG MRI PROCEDURES Final [...] a prior imaging study performed at [facility] on 10/31/2011. There are scattered [...] a prior imaging study performed at [facility] on 10/31/2011. There are scattered areas of fibroglandular density. There is no suspicious abnormality in either breast. Impression: There is no mammographic evidence of malignancy. Annual screening mammography is recommended. OVERALL FINAL ASSESSMENT: BI-RADS CATEGORY 1: Negative. us Self Screening Mammogram IMG MAMMO PROCEDURES Fi nal Result from Last 3 Months or Most Recently Relevant to Health [place] [address] [facility], [place] [address] UHC CHOICE [facility] Address: [place] [address] [address] [place] [address] [facility] CHOICE [facility] Address: [place] [address] COMMERCIAL GENERIC * Guarantor: ELENA CUSD6 Account Type Relation to Patient Date of Phone Billing Address [place] [address] Care Teams Paper Cutter Relationship Specialty Start Date End Date Nettie Bella NP [address] [place] [address] PCP - General Nurse Practitioner 05/13/25 Benoit Jackson MD [address] [id number] Referring Physician Obstetrics and Gynecology 02/14/23
== END 2025-08-10 13:49 | disposition home or self-care (01) ==
LOC: ANHBWCLAB 13:50 → ANHBWCIMG 13:51
PROVIDERS: PCP Nurse Practitioner Adult Health; Visit Provider Nurse Practitioner Adult Health
DX: R22.42 Localized swelling, mass and lump, left lower limb (principal)
CPT/HCPCS: 73630

== ENCOUNTER 2025-08-11 06:45 | Outpatient (CLI) | payer OTHER, SELFPAY ==
--- OUTSIDE RECORDS SUMMARY | 2004-01-25 05:00 | XMS_ITS | Continuity of Care Document ---
Author Organization [facility] Address [address] [facility] [place] [address] Phone Care Team Providers Care Photo Cartographer Name Role Phone Wagner ROBERTSMicha Unavailable Unavailable Advance Directives Directive Yes / No Effective Date File Name No Information Encounters Encounter Description Practice Location Reason(s) For Visit Diagnoses Date Provider Providers Copied on Encounter [facility], [address], [place], [place], [id number], [place] tel:[phone] [facility] [place] No Information Wagner Louis. [address] [facility], [place], [address], [place]. tel: [phone] Family History Family Member Type Diagnosis Age At Onset No Information Payers Payer name Insurance type Covered constitution party ID Authoriza tion(s) No Information Social History Type Description Quantity Date Captured Comments Sex Female Smoking Status No Information Chief Complaint And Reason For Visit No Information Reason For Referral Reason For Referral No Information History Of Present Illness Encounter Date Complaint History Of Prese nt Illness No Information Functional Status Date Functional Assessmen t No Information Instructions Date Instruction Additional Infor mation No Information Assessments Type Assessment Date No Information Patient Care Teams Name Effective Dates (start - stop) Status Members No Information
--- OUTSIDE RECORDS SUMMARY | 2017-09-25 | XMS_ITS | Encounter Summary ---
Author Organization [facility] Healthcare Address [address] [place] [address] Care Team Providers Care Field Ironworker Name Role Phone Ken Best MD Primary Care Provider [phone] Reason for Visit * Diagnostic Imaging (Routine) - Closed Specialty Diagnoses / Procedures Referred By Contac t Referred To Contact Procedures Breast Imaging Screening Outside Reference Cezar Hull NP Phone: tel: fax: Referral ID Status Reason Start Date Expiration Date Visits Re quested Visits Authorized [id number] Closed 03/01/2023 03/30/2024 1 1 Encounter Details Date Type Department Care Team (Late st Contact Info) Description 09/25/2017 Hospital Encounter [facility] [address] [place] [address] Social History Tobacco Use Types Packs/Day Years Used Date Smoking Tobacco: Never Smokeless Tobacco: Never Alcohol Use Standard Drinks/Week Comments Yes 0 (1 standard drink = 0.6 oz pur e alcohol) Comments Unknown Sex and Gender Information Value Date Recorded Sex Assigned at Not on file Legal Sex Female 12:37 AM SLIDE ATTENDANT Gender Identity Not on file Sexual Orientation Not on file documented as of this encounter Functional Status documented as of this encounter Plan of Treatment Not on file documented as of this encounter Procedures Procedure Name Priority Date/Time Associated Diagnosis Comments BREAST IMAGING MG SCREENING OUTSIDE REFERENCE Routine 09/25/2017 12:00 AM SLIDE ATTENDANT documented in this encounter Results * Breast Imaging Screening Outside Reference (09/25/2017 12:00 AM SLIDE ATTENDANT) Impressions [facility] - 03/01/2023 8:40 AM CDT These images are for Reference purposes only and have not been reviewed by [facility] Radiology. There will be no report generated by a [facility] Radiologist. Narrative [facility] - 03/01/2023 8:40 AM CDT EXAMINATION: Images For Reference Purposes Only us Cezar Hull PRN PHYSICAL THERAPIST IMG MAMMO PROCEDURES Final Result [facility] documented in this encounter Visit Diagnoses Not on filedocumented in this encounter Care Teams Field Ironworker Relationship Specialty Start Date End Date Ken Best MD [address] [address] PCP - General 09/18/17 05/12/25 documented as of this encounter
--- OUTSIDE RECORDS SUMMARY | 2018-09-29 | XMS_ITS | Encounter Summary ---
Author Organization [facility] Healthcare Address [address] [place] [address] Care Team Providers Care Inseam Trimming Machine Operator Name Role Phone Ken Best MD Primary Care Provider [phone] [phone] Reason for Visit * Diagnostic Imaging (Routine) - Closed Specialty Diagnoses / Procedures Referred By Contac t Referred To Contact Procedures Breast Imaging Screening Outside Reference Cezar Hull NP Phone: tel: fax: Referral ID Status Reason Start Date Expiration Date Visits Re quested Visits Authorized [id number] Closed 03/01/2023 03/30/2024 1 1 Encounter Details Date Type Department Care Team (Late st Contact Info) Description 09/29/2018 Hospital Encounter [facility] [address] [place] [address] Social History Tobacco Use Types Packs/Day Years Used Date Smoking Tobacco: Never Smokeless Tobacco: Never Alcohol Use Standard Drinks/Week Comments Yes 0 (1 standard drink = 0.6 oz pur e alcohol) Comments Unknown Sex and Gender Information Value Date Recorded Sex Assigned at Not on file Legal Sex Female 12:37 AM PIERCING SPECIALIST Gender Identity Not on file Sexual Orientation Not on file documented as of this encounter Functional Status documented as of this encounter Plan of Treatment Not on file documented as of this encounter Procedures Procedure Name Priority Date/Time Associated Diagnosis Comments BREAST IMAGING MG SCREENING OUTSIDE REFERENCE Routine 09/29/2018 12:00 AM PIERCING SPECIALIST documented in this encounter Results * Breast Imaging Screening Outside Reference (09/29/2018 12:00 AM PIERCING SPECIALIST) Impressions RAD_M[facility]MO[facility] - 03/01/2023 8:39 AM CDT These images are for Reference purposes only and have not been reviewed by [facility] Radiology. There will be no report generated by a [facility] Radiologist. Narrative RAD_MAMMO[facility] - 03/01/2023 8:39 AM CDT EXAMINATION: Images For Reference Purposes Only us Cezar Hull CASH APPLICATIONS MANAGER IMG MAMMO PROCEDURES Final Result [facility] documented in this encounter Visit Diagnoses Not on filedocumented in this encounter Care Teams Inseam Trimming Machine Operator Relationship Specialty Start Date End Date Ken Best MD [id number] [address] PCP - General 09/18/17 05/12/25 documented as of this encounter
--- OUTSIDE RECORDS SUMMARY | 2019-11-03 | XMS_ITS | Encounter Summary ---
Author Organization [facility] Healthcare Address [address] [place] [address] Care Team Providers Care Floor Cashier Name Role Phone Ken Best MD Primary Care Provider [phone] Reason for Visit * Diagnostic Imaging (Routine) - Closed Specialty Diagnoses / Procedures Referred By Contac t Referred To Contact Procedures Breast Imaging Screening Outside Reference Cezar Hull NP Phone: tel: fax: Referral ID Status Reason Start Date Expiration Date Visits Re quested Visits Authorized [id number] Closed 03/01/2023 03/30/2024 1 1 Encounter Details Date Type Department Care Team (Late st Contact Info) Description 11/03/2019 Hospital Encounter [facility] [address] [place] [id number] Social History Tobacco Use Types Packs/Day Years Used Date Smoking Tobacco: Never Smokeless Tobacco: Never Alcohol Use Standard Drinks/Week Comments Yes 0 (1 standard drink = 0.6 oz pur e alcohol) Comments Unknown Sex and Gender Information Value Date Recorded Sex Assigned at Not on file Legal Sex Female 12:37 AM ELECTRONIC WARFARE OFFICER Gender Identity Not on file Sexual Orientation Not on file documented as of this encounter Functional Status documented as of this encounter Plan of Treatment Not on file documented as of this encounter Procedures Procedure Name Priority Date/Time Associated Diagnosis Comments BREAST IMAGING MG SCREENING OUTSIDE REFERENCE Routine 11/03/2019 12:00 AM ELECTRONIC WARFARE OFFICER documented in this encounter Results * Breast Imaging Screening Outside Reference (11/03/2019 12:00 AM ELECTRONIC WARFARE OFFICER) Impressions [facility] - 03/01/2023 8:38 AM CDT These images are for Reference purposes only and have not been reviewed by [facility] Radiology. There will be no report generated by a [facility] Radiologist. Narrative [facility]MO[facility] - 03/01/2023 8:38 AM CDT EXAMINATION: Images For Reference Purposes Only us Cezar Hull MEAT STOCKER IMG MAMMO PROCEDURES Final Result [facility] documented in this encounter Visit Diagnoses Not on filedocumented in this encounter Care Teams Floor Cashier Relationship Specialty Start Date End Date Ken Best MD [address] [address] PCP - General 09/18/17 05/12/25 documented as of this encounter
--- OUTSIDE RECORDS SUMMARY | 2025-08-11 06:49 | XMS_ITS | Clinical Summary ---
Author Organization [facility] Address [facility] [place] [address] Care Team Providers Care Fingernail Former Name Role Phone Benoit Jackson MD Unavailable [phone] Nettie Bella NP Primary Care Provider [phone] Allergies Active Allergy Reactions Criticality Noted Date [...] - 05/19/2025 11:59 PM CDT Hospital Encounter [facility] [address] [place] [address] Unspecified injury of left lower leg, initial [...] on file Legal Sex Female 12:37 AM PROBE OPERATOR Gender Identity Not on file Sexual Orientation Not on file Last Filed Vital Signs Vital Sign Reading Time Taken Comments Blood Pressure 124/71 08/09/2021 2:53 PM PROBE OPERATOR Pulse 77 08/09/2021 2:53 PM PROBE OPERATOR Temperature - - Respiratory Rate 18 08/09/2021 2:53 PM PROBE OPERATOR Oxygen Saturation 98% 08/09/2021 2:53 PM PROBE OPERATOR Inhaled Oxygen Concentration - - Weight 75.8 [...] 06/24/2019, 04/17/2019 Medical Devices Implanted Type Area Scooter Mechanic Device Identifier Shelf Expiration Date Model / Serial / Lot Biogenic Reagents Limited Partnership Eviva 13cm Identifier Biopsy Site [id number] - [id number] Implanted:Qty: 1 on 03/07/2023 by Dara Valera MD at [facility] Left: Breast [employer] Partnership [id number] 08/22/2023 SMARK-PHIL VA-13 / / [id number] Procedures Procedure Name Priority Date/Time Associated Diagnosis [...] Haja Suarez M.D. MF: GREG Report ID: [id number] Reading Location: [id number] Procedure Note Haja Suarez MD - 05/19/2025 [...] Electronically signed by Haja Suarez M.D. MF: GERG Report ID: [id number] Reading Location: [id number] Ovi Yarbrough MD IMG MRI PROCEDURES Final [...] prior imaging study performed at [facility] on 10/31/2011. There are scattered areas of [...] prior imaging study performed at [facility] on 10/31/2011. There are scattered areas of fibroglandular density. There is no suspicious abnormality in either breast. Impression: There is no mammographic evidence of malignancy. Annual screening mammography is recommended. OVERALL FINAL ASSESSMENT: BI-RADS CATEGORY 1: Negative. us Self Screening Mammogram IMG MAMMO PROCEDURES Fi nal Result from Last 3 Months or Most Recently Relevant to Health [place] [address] [place] [address] UHC CHOICE PL[place] [address] [place] [address] [facility] CHOICE PLUS COMMERCIAL GENERIC * Guarantor: ELENA CUSD6 Account Type Relation to Patient Date of Phone Billing Address [place] [address] Care Teams Fingernail Former Relationship Specialty Start Date End Date Nettie Bella NP [address] [place] [address] PCP - General Nurse Practitioner 05/13/25 Benoit Jackson MD [address] [id number] Referring Physician Obstetrics and Gynecology 02/14/23
--- OUTSIDE RECORDS SUMMARY | 2025-08-11 06:49 | XMS_ITS | Clinical Summary ---
Author Organization [facility] Address [address] [place] [address] Care Team Providers Care Director Of Bands Name Role Phone Ken Best MD Primary Care Provider [phone] Allergies Active Allergy Reactions Criticality Noted Date [...] patient's age to complete this topic Insurance [place] [address] [employer] [facility] [employer] [facility] Care Teams Director Of Bands Relationship Specialty Start Date End Date Ken Best MD [address] [place] [address] [address] [place] [id number] PCP - General FAMILY PRACTICE 02/16/20
--- OUTSIDE RECORDS SUMMARY | 2025-08-11 06:49 | XMS_ITS | Clinical Summary ---
Author Organization [facility] Address [address] [place] [address] Care Team Providers Care Ripsaw Matcher Name Role Phone Ken Best MD Primary Care Provider [phone] [facility],non-owned Affiliates and Associated Physician Practices is amultiple site organization consisting of ambulatory clinics and hospital sitesin [place], [place], [place] and [place]. This disclosure is being madepursuant to the Care Everywhere program and may not contain all information available regarding this patient. Last updated 18.[facility] Allergies No known active allergies Medications * [...] (ULTRAM) 50 MG tabletIndicatio ns:Rheumatoid arthritis(714.0 ) ([facility]) Take 1 Tab by mouth 3 times daily. Take one or two pills with over the counter Tylenol for daily pain flare ups 270 3 9 Active Methotrexate (Anti-Rheumatic ) 2.5 MG TABSIndications :Rheumatoid arthritis(714.0 ) (HCC) Take 6 Tabs by mouth every 7 days before meal. 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 Not on file Not on file Last Filed Vital Signs Vital Sign Reading Time Taken Comments Blood Pressure 116/64 09/20/2017 11:25 AM AREA RELIEF PILOT Pulse 101 09/20/2017 11:25 AM AREA RELIEF PILOT Temperature 36.8 C (98.3 F) 09/20/2017 11:25 AM AREA RELIEF PILOT Respiratory Rate 18 09/20/2017 11:25 AM AREA RELIEF PILOT Oxygen Saturation 98% 09/20/2017 11:25 AM AREA RELIEF PILOT Inhaled Oxygen Concentration - - Weight 78.9 kg (174 lb) 09/20/2017 11:25 AM AREA RELIEF PILOT Height 154.9 cm (5' 1) 09/20/2017 11:25 AM AREA RELIEF PILOT Body Mass Index 32.88 09/20/2017 11:25 AM AREA RELIEF PILOT Plan of Treatment Health Maintenance Due Date [...] PM CDT Narrative Resulting Agency Comment [facility] [address] [facility] [id number] us Saravanan Escobedo MD LAB - CHEMISTRY ORDERABLES Nereyda pham Result [facility] ACCOUNT BILL [address] [place] [address] from Last 3 Months or Most Recently Relevant to Health Maintenance [facility] Care Teams Ripsaw Matcher Relationship Specialty Start Date End Date Ken Best MD PCP - General 01/06/09
[2025-08-11 19:00] LABS: Hematocrit 42.7 % (37.0-47.0); Hemoglobin 13.3 g/dL (12.0-15.0); Mean Corpuscular HGB Conc 31.1 g/dl (32-36); Mean Corpuscular Hemoglobin 29.0 pg (26-34); Mean Corpuscular Volume 93.2 fl (80-100); Platelet Count Result 233 k/mm3 (150-375); Red Blood Count 4.58 M/mm3 (4.2-5.4); White Blood Count 5.7 K/mm3 (4.5-10.0)
[2025-08-11 19:12] LABS: Alanine Aminotransferase 32 U/L (6-35); Albumin Level 4.4 g/dL (3.5-5.1); Alkaline Phosphatase 80 U/L (38-126); Anion Gap 7 mmol/L (4-12); Aspartate Amino Transferase 71 U/L (14-36); Bilirubin,Total 0.5 mg/dL (0.2-1.3); Blood Urea Nitrogen 17 mg/dL (7-17); Calcium 9.3 mg/dL (8.4-10.2); Carbon Dioxide 29 mmol/L (22-30); Chloride 101 mmol/L (98-107); Cholesterol 273 mg/dL (0-200); Estimated Glomerular Filt Rate > 60; Glucose 86 mg/dL (65-110); HDL Direct 56 mg/dL; Potassium 4.3 mmol/L (3.4-5.0); Sodium 137 mmol/L (137-145); Total Protein 7.8 g/dL (6.3-8.2); Triglycerides 295 mg/dL (<150)
[2025-08-11 19:23] LABS: MALB Creatinine Ratio 23.2 mg/g (0-30)
[2025-08-11 19:35] LABS: Hemoglobin A1C 5.3 % (<5.7)
[2025-08-11 19:48] LABS: Thyroid Stimulating Hormone 1.790 uIU/mL (0.465-4.680)
[2025-08-11 20:07] LABS: Vitamin B12 309.0 pg/mL (239-931)
== END 2025-08-11 06:46 | disposition home or self-care (01) ==
PROVIDERS: PCP Nurse Practitioner Adult Health; Visit Provider Nurse Practitioner Adult Health
DX: E11.9 Type 2 diabetes mellitus without complications (principal); E78.2 Mixed hyperlipidemia; I10 Essential (primary) hypertension; D51.9 Vitamin B12 deficiency anemia, unspecified; E03.9 Hypothyroidism, unspecified
CPT/HCPCS: 36415; 80053; 80061; 82043; 82565; 82607; 83036; 84443; 85027

== ENCOUNTER 2025-09-15 06:59 | Outpatient (CLI) | payer OTHER, SELFPAY ==
--- OUTSIDE RECORDS SUMMARY | 2017-09-25 | XMS_ITS | Encounter Summary ---
Author Organization [facility] Healthcare Address [address] [place] [address] Care Team Providers Care Jewel Hole Driller Name Role Phone Ken Best MD Primary Care Provider [phone] Reason for Visit * Diagnostic Imaging (Routine) - Closed Specialty Diagnoses / Procedures Referred By Contac t Referred To Contact Procedures Breast Imaging Screening Outside Reference Cezar Hull NP Phone: tel: fax: Referral ID Status Reason Start Date Expiration Date Visits Re quested Visits Authorized [id number] Closed 03/01/2023 03/30/2024 1 1 Encounter Details Date Type Department Care Team (Late st Contact Info) Description 09/25/2017 Hospital Encounter [facility] [place], [place] [address] Social History Tobacco Use Types Packs/Day Years Used Date Smoking Tobacco: Never Smokeless Tobacco: Never Alcohol Use Standard Drinks/Week Comments Yes 0 (1 standard drink = 0.6 oz pur e alcohol) Comments Unknown Sex and Gender Information Value Date Recorded Sex Assigned at Not on file Legal Sex Female 12:37 AM BANKING SERVICES ADVISOR Gender Identity Not on file Sexual Orientation Not on file documented as of this encounter Plan of Treatment Not on file documented as of this encounter Procedures Procedure Name Priority Date/Time Associated Diagnosis Comments BREAST IMAGING MG SCREENING OUTSIDE REFERENCE Routine 09/25/2017 12:00 AM BANKING SERVICES ADVISOR documented in this encounter Results * Breast Imaging Screening Outside Reference (09/25/2017 12:00 AM BANKING SERVICES ADVISOR) Impressions [facility] - 03/01/2023 8:40 AM CDT These images are for Reference purposes only and have not been reviewed by [facility]. There will be no report generated by a [facility] Radiologist. Narrative [facility] - 03/01/2023 8:40 AM CDT EXAMINATION: Images For Reference Purposes Only Cezar Hull TREASURY REPRESENTATIVE IMG MAMMO PROCEDURES Final Result [facility] documented in this encounter Visit Diagnoses Not on filedocumented in this encounter Care Teams Jewel Hole Driller Relationship Specialty Start Date End Date Ken Best MD [address] [employer] [address] PCP - General 09/18/17 05/12/25 documented as of this encounter
--- OUTSIDE RECORDS SUMMARY | 2018-09-29 | XMS_ITS | Encounter Summary ---
Author Organization [facility] Healthcare Address [address] [place] [address] Care Team Providers Care Asp Web Developer Name Role Phone Ken Best MD Primary Care Provider [phone] Reason for Visit * Diagnostic Imaging (Routine) - Closed Specialty Diagnoses / Procedures Referred By Contac t Referred To Contact Procedures Breast Imaging Screening Outside Reference Cezar Hull NP Phone: tel: fax: Referral ID Status Reason Start Date Expiration Date Visits Re quested Visits Authorized [id number] Closed 03/01/2023 03/30/2024 1 1 Encounter Details Date Type Department Care Team (Late st Contact Info) Description 09/29/2018 Hospital Encounter [facility] [place], [place] [address] Social History Tobacco Use Types Packs/Day Years Used Date Smoking Tobacco: Never Smokeless Tobacco: Never Alcohol Use Standard Drinks/Week Comments Yes 0 (1 standard drink = 0.6 oz pur e alcohol) Comments Unknown Sex and Gender Information Value Date Recorded Sex Assigned at Not on file Legal Sex Female 12:37 AM MACHINE DESIGN TEACHER Gender Identity Not on file Sexual Orientation Not on file documented as of this encounter Plan of Treatment Not on file documented as of this encounter Procedures Procedure Name Priority Date/Time Associated Diagnosis Comments BREAST IMAGING MG SCREENING OUTSIDE REFERENCE Routine 09/29/2018 12:00 AM MACHINE DESIGN TEACHER documented in this encounter Results * Breast Imaging Screening Outside Reference (09/29/2018 12:00 AM MACHINE DESIGN TEACHER) Impressions RAD_[facility]MO[facility] - 03/01/2023 8:39 AM CDT These images are for Reference purposes only and have not been reviewed by [facility] Radiology. There will be no report generated by a [facility] Radiologist. Narrative RAD_MAMMO[facility] - 03/01/2023 8:39 AM CDT EXAMINATION: Images For Reference Purposes Only us Cezar Hull BUSINESS RECORDS MANAGER IMG MAMMO PROCEDURES Final Result [facility] documented in this encounter Visit Diagnoses Not on filedocumented in this encounter Care Teams Asp Web Developer Relationship Specialty Start Date End Date Ken Best MD [id number] [address] PCP - General 09/18/17 05/12/25 documented as of this encounter
--- OUTSIDE RECORDS SUMMARY | 2019-11-03 | XMS_ITS | Encounter Summary ---
Author Organization [facility] Healthcare Address [address] [place] [address] Care Team Providers Care Motor Boss Name Role Phone Ken Best MD Primary Care Provider [phone] Reason for Visit * Diagnostic Imaging (Routine) - Closed Specialty Diagnoses / Procedures Referred By Contac t Referred To Contact Procedures Breast Imaging Screening Outside Reference Cezar Hull NP Phone: tel: fax: Referral ID Status Reason Start Date Expiration Date Visits Re quested Visits Authorized [id number] Closed 03/01/2023 03/30/2024 1 1 Encounter Details Date Type Department Care Team (Late st Contact Info) Description 11/03/2019 Hospital Encounter [facility] [address] [place] [phone] Social History Tobacco Use Types Packs/Day Years Used Date Smoking Tobacco: Never Smokeless Tobacco: Never Alcohol Use Standard Drinks/Week Comments Yes 0 (1 standard drink = 0.6 oz pur e alcohol) Comments Unknown Sex and Gender Information Value Date Recorded Sex Assigned at Not on file Legal Sex Female 12:37 AM CRAFT ARTIST Gender Identity Not on file Sexual Orientation Not on file documented as of this encounter Plan of Treatment Not on file documented as of this encounter Procedures Procedure Name Priority Date/Time Associated Diagnosis Comments BREAST IMAGING MG SCREENING OUTSIDE REFERENCE Routine 11/03/2019 12:00 AM CRAFT ARTIST documented in this encounter Results * Breast Imaging Screening Outside Reference (11/03/2019 12:00 AM CRAFT ARTIST) Impressions [facility] - 03/01/2023 8:38 AM CDT These images are for Reference purposes only and have not been reviewed by [facility] Radiology. There will be no report generated by a [facility] Radiologist. Narrative RAD_MAMMO[facility] - 03/01/2023 8:38 AM CDT EXAMINATION: Images For Reference Purposes Only Cezar Hull STUCCO LABORER IMG MAMMO PROCEDURES Final Result [facility] documented in this encounter Visit Diagnoses Not on filedocumented in this encounter Care Teams Motor Boss Relationship Specialty Start Date End Date Ken Best MD [address] [address] PCP - General 09/18/17 05/12/25 documented as of this encounter
--- OUTSIDE RECORDS SUMMARY | 2020-11-08 | XMS_ITS | Encounter Summary ---
Author Organization [facility] Healthcare Address [address] [place] [id number] Care Team Providers Care Director Of Assessment Name Role Phone Ken Best MD Primary Care Provider [phone] [phone] Reason for Visit * Diagnostic Imaging (Routine) - Closed Specialty Diagnoses / Procedures Referred By Contac t Referred To Contact Procedures Breast Imaging Screening Outside Reference Cezar Hull NP Phone: tel: fax: Referral ID Status Reason Start Date Expiration Date Visits Re quested Visits Authorized [id number] Closed 03/01/2023 03/30/2024 1 1 Encounter Details Date Type Department Care Team (Late st Contact Info) Description 11/08/2020 Hospital Encounter [facility] [address] [place] [address] [phone] Social History Tobacco Use Types Packs/Day Years Used Date Smoking Tobacco: Never Smokeless Tobacco: Never Alcohol Use Standard Drinks/Week Comments Yes 0 (1 standard drink = 0.6 oz pur e alcohol) Comments Unknown Sex and Gender Information Value Date Recorded Sex Assigned at Not on file Legal Sex Female 12:37 AM TELECOMMUNICATIONS NETWORK PLANNER Gender Identity Not on file Sexual Orientation Not on file documented as of this encounter Plan of Treatment Not on file documented as of this encounter Procedures Procedure Name Priority Date/Time Associated Diagnosis Comments BREAST IMAGING MG SCREENING OUTSIDE REFERENCE Routine 11/08/2020 12:00 AM TELECOMMUNICATIONS NETWORK PLANNER documented in this encounter Results * Breast Imaging Screening Outside Reference (11/08/2020 12:00 AM TELECOMMUNICATIONS NETWORK PLANNER) Impressions [facility] - 03/01/2023 8:38 AM CDT These images are for Reference purposes only and have not been reviewed by [facility] Radiology. There will be no report generated by a [facility] Radiologist. Narrative [facility] - 03/01/2023 8:38 AM CDT EXAMINATION: Images For Reference Purposes Only us Cezar Hull NP IMG MAMMO PROCEDURES Final Result [facility] documented in this encounter Visit Diagnoses Not on filedocumented in this encounter Care Teams Director Of Assessment Relationship Specialty Start Date End Date Ken Best MD [address] [address] PCP - General 09/18/17 05/12/25 documented as of this encounter
--- OUTSIDE RECORDS SUMMARY | 2025-09-15 07:02 | XMS_ITS | Clinical Summary ---
Author Organization [facility] Address [address] [place] [address] Care Team Providers Care Engineering Instructor Name Role Phone Ken Best MD Primary Care Provider [phone] Source Comments [facility],non-owned Affiliates and Associated Physician Practices is amultiple site organization consisting of ambulatory clinics and hospital sitesin [place], [place], [place] and [place]. This disclosure is being madepursuant to the Care Everywhere program and may not contain all information available regarding this patient. Last updated 18.[facility] Allergies No known active allergies Medications * [...] (ULTRAM) 50 MG tabletIndicatio ns:Rheumatoid arthritis(714.0 ) ([facility]) Take 1 Tab by mouth 3 times daily. Take one or two pills with over the counter Tylenol for daily pain flare ups 270 3 9 Active Methotrexate (Anti-Rheumatic ) 2.5 MG TABSIndications :Rheumatoid arthritis(714.0 ) (HCC) Take 6 Tabs by mouth every 7 days before meal. 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 Not on file Not on file Last Filed Vital Signs Vital Sign Reading Time Taken Comments Blood Pressure 116/64 09/20/2017 11:25 AM AERIAL PHOTOGRAPH INTERPRETER Pulse 101 09/20/2017 11:25 AM AERIAL PHOTOGRAPH INTERPRETER Temperature 36.8 C (98.3 F) 09/20/2017 11:25 AM AERIAL PHOTOGRAPH INTERPRETER Respiratory Rate 18 09/20/2017 11:25 AM AERIAL PHOTOGRAPH INTERPRETER Oxygen Saturation 98% 09/20/2017 11:25 AM AERIAL PHOTOGRAPH INTERPRETER Inhaled Oxygen Concentration - - Weight 78.9 kg (174 lb) 09/20/2017 11:25 AM AERIAL PHOTOGRAPH INTERPRETER Height 154.9 cm (5' 1) 09/20/2017 11:25 AM AERIAL PHOTOGRAPH INTERPRETER Body Mass Index 32.88 09/20/2017 11:25 AM AERIAL PHOTOGRAPH INTERPRETER Plan of Treatment Health Maintenance Due Date [...] DEPRESSION SCREENING 09/30/2024 COVID-19 VACCINE (1 - 2024-2 6 season) 2025 INFLUENZA VACCINE (#1) 2025 7, [...] PM CDT Narrative Resulting Agency Comment [facility] [place] [address] [id number] us Saravanan Escobedo MD LAB - CHEMISTRY ORDERABLES Nereyda pham Result [facility] ACCOUNT BILL [address] [place] [address] from Last 3 Months or Most Recently Relevant to Health Maintenance Insurance [facility] Care Teams Engineering Instructor Relationship Specialty Start Date End Date Ken Best MD PCP - General 01/06/09
--- OUTSIDE RECORDS SUMMARY | 2025-09-15 07:02 | XMS_ITS | Clinical Summary ---
Author Organization [facility] Address [address] [place] [address] Care Team Providers Care Healthcare Advisory Services Manager Name Role Phone Ken Best MD Primary Care Provider [phone] Allergies Active Allergy Reactions Criticality Noted Date [...] patient's age to complete this topic Insurance [place] [address] Zidisha [facility]idisha [facility] Care Teams Healthcare Advisory Services Manager Relationship Specialty Start Date End Date Ken Best MD [address] [place] [address] [address] [place] [id number] PCP - General FAMILY PRACTICE 02/16/20
--- OUTSIDE RECORDS SUMMARY | 2025-09-15 07:02 | XMS_ITS | Clinical Summary ---
Author Organization [facility] Address [facility] [place] [address] Care Team Providers Care Facilities Mechanical Design Engineer Name Role Phone Benoit Jackson MD Unavailable [phone] Nettie Bella NP Primary Care Provider [phone] Allergies Active Allergy Reactions Criticality Noted Date [...] on file Legal Sex Female 12:37 AM SUPERVISOR SUNGLASSES Gender Identity Not on file Sexual Orientation Not on file Last Filed Vital Signs Vital Sign Reading Time Taken Comments Blood Pressure 124/71 08/09/2021 2:53 PM SUPERVISOR SUNGLASSES Pulse 77 08/09/2021 2:53 PM SUPERVISOR SUNGLASSES Temperature - - Respiratory Rate 18 08/09/2021 2:53 PM SUPERVISOR SUNGLASSES Oxygen Saturation 98% 08/09/2021 2:53 PM SUPERVISOR SUNGLASSES Inhaled Oxygen Concentration - - Weight 75.8 [...] 06/24/2019, 04/17/2019 Medical Devices Implanted Type Area Metalizing Machine Operator Automatic Device Identifier Shelf Expiration Date Model / Serial / Lot [employer] Eviva 13cm Identifier Biopsy Site [id number] - [id number] Implanted:Qty: 1 on 03/07/2023 by Dara Valera MD at [facility] Left: Breast [employer] [id number] 08/22/2023 [facility] VA-13 / / [id number] Procedures Procedure Name Priority Date/Time Associated Diagnosis [...] to a prior imaging study performed at [facility] on 10/31/2011. There are scattered areas of [...] to a prior imaging study performed at [facility] on 10/31/2011. There are scattered areas of fibroglandular density. There is no suspicious abnormality in either breast. Impression: There is no mammographic evidence of malignancy. Annual screening mammography is recommended. OVERALL FINAL ASSESSMENT: BI-RADS CATEGORY 1: Negative. us Self Screening Mammogram IMG MAMMO PROCEDURES Fi nal Result from Last 3 Months or Most Recently Relevant to Health Maintenance Insurance [facility] Address: [place] [address] [facility]O Address: [place] [address] COMMERCIAL GENERIC * Guarantor: [employer] [id number] Account Type Relation to Patient Date of Phone Billing Address Workers Comp Employer Care Teams Facilities Mechanical Design Engineer Relationship Specialty Start Date End Date Nettie Bella NP [facility] [address] PCP - General Nurse Practitioner 05/13/25 Benoit Jackson MD [address] [address] Referring Physician Obstetrics and Gynecology 02/14/23
[2025-09-15 19:37] LABS: Alanine Aminotransferase 31 U/L (6-35); Albumin Level 4.0 g/dL (3.5-5.1); Alkaline Phosphatase 92 U/L (38-126); Anion Gap 6 mmol/L (4-12); Aspartate Amino Transferase 62 U/L (14-36); Bilirubin,Total 0.3 mg/dL (0.2-1.3); Blood Urea Nitrogen 17 mg/dL (7-17); Calcium 8.8 mg/dL (8.4-10.2); Carbon Dioxide 29 mmol/L (22-30); Chloride 102 mmol/L (98-107); Cholesterol 134 mg/dL (0-200); Estimated Glomerular Filt Rate > 60; Glucose 82 mg/dL (65-110); HDL Direct 54 mg/dL; Potassium 4.6 mmol/L (3.4-5.0); Sodium 137 mmol/L (137-145); Total Protein 7.1 g/dL (6.3-8.2); Triglycerides 140 mg/dL (<150)
== END 2025-09-15 07:00 | disposition home or self-care (01) ==
PROVIDERS: PCP Nurse Practitioner Adult Health; Visit Provider Nurse Practitioner Adult Health
DX: E78.2 Mixed hyperlipidemia (principal)
CPT/HCPCS: 36415; 80053; 80061